=== PATIENT | female | born 1925 | race Caucasian/White ===

== ENCOUNTER 2016-05-02 08:58 | Inpatient (IN) | payer MEDICARE ==
[2016-05-02] MEDS ORDERED: SODIUM CHLORIDE 0.9% 1,000 ML IV STA (09:50)
[2016-05-02] MEDS ORDERED: ACETAMINOPHEN IV (For NPO) 1,000 MG in EMPTY BAG 1 BAG IVPB ONE (09:51)
[2016-05-02] MEDS: SODIUM CHLORIDE 0.9% 500 ML IV STA ×2 (10:11→11:46)
[2016-05-02] MEDS ORDERED: ACETAMINOPHEN IVPB ONE (10:15)
[2016-05-02 10:36] LABS: Amorphous Sediment,Urine Rare /hpf; Appearance,Urine Cloudy (Clear); Bilirubin,Urine Negative (Negative); Glucose,Urine (UA) Negative (Negative); Granular Casts,Urine 1 /lpf (0); Ketones,Urine Negative (Negative); Leukocyte Esterase,Urine Negative (Negative); Mucus,Urine Rare /hpf; Nitrite,Urine Negative (Negative); PH, Urine 5.5 (5.0-8.0); Particle Count 7619; Protein,Urine 1+ (Negative); Specific Gravity,Urine 1.014 (1.001-1.035); UA Billing (MACRO vs. MICRO) MICRO; Urobilinogen,Urine <2.0 mg/dL (<2.0); WBC,Urine 13 /hpf (0-5)
[2016-05-02 10:38] LABS: Basophils % (A) 0 %; CHCM 32.6; Eosinophils # (A) 0.1 k/uL (0-0.7); Eosinophils % (A) 1 %; HCT 39.7 % (34.0-46.0); HDW 2.56; HGB 12.8 gm/dL (11.4-16.0); Luc # (Auto) 0.26; Luc % (Auto) 2; Lymphocytes # (A) 0.2 k/uL (1.0-4.8); Lymphocytes % (A) 2 %; MCH 31.7 pg (25.0-35.0); MCHC 32.1 g/dL (31.0-37.0); MCV 98.6 fL (80.0-100.0); Mean Platelet Volume 7.6; Monocytes # (A) 0.3 k/uL (0-1.0); Monocytes % (A) 3 %; Neutrophils # (A) 11.2 k/uL (1.3-7.7); Neutrophils % (A) 93 %; RBC 4.02 m/uL (3.80-5.40); RDW 12.3 % (11.5-15.5); WBC 12.1 k/uL (3.8-10.6); WBC (Perox) 12.08
[2016-05-02 10:40] LABS: Partial Thromboplastin Time 26.3 sec (22.0-30.0); Prothrombin Time 9.9 sec (9.0-12.0)
--- NOTE | 2016-05-02 10:40 | ED ---
General Adult HPI - General Chief complaint: Fall Stated complaint: Constipation Time Seen by Provider: 05/02/16 09:31 Source: EMS Mode of arrival: EMS Limitations: altered mental status - History of Present Illness Initial comments: This 89-year-old white female presents via EMS with a complaint of some pain to her lower back and pelvis area which seems radiate down her left leg. She apparently has had this for over 2 weeks. She followed up with Dr. [facility]ett [facility] this past week and initially was prescribed some ibuprofen. She apparently did not have any relief from this in a called her in some Ultram. She is tried the Ultram but her close friend relates that this made her very goofy. Her friend stopped this yesterday. She has had difficult time with any ambulation. She apparently was unable to make it to the bathroom and soiled herself. She states that the pain is fairly severe. The friend relates that she has been confused since taking the Ultram. The patient denies any actual fall or injuries. She denies any difficulty in breathing or fevers. She was fairly adamant about not coming to the hospital so the friend called the police to the house as well and she subsequently agreed. Did have some x- rays by her orthopedic physician last week but the results of these x-rays are unknown. She denies any other complaints or modifying factors. 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 - Related Data Home Medications Medication Instructions Recorded Confirmed Alendronate Sodium 70 mg PO WEEKLY 02/04/14 02/04/14 Aspirin 81 mg PO DAILY 02/04/14 02/04/14 Calcium Carbonate/Vitamin D3 1 each PO DAILY 02/04/14 02/04/14 [Calcium 600-Vit D3 400 Tablet] Flunisolide Nasal [place] [Nasalide] 2 spray NASAL BID 02/04/14 02/04/14 Gabapentin 400 mg PO AC-TID 02/04/14 02/04/14 Levothyroxine Sodium [Synthroid] 75 mcg PO DAILY 02/04/14 02/04/14 Menthol [Nice Cough Drops] 1 - 2 each PO Q2HR PRN 02/04/14 02/04/14 Multivitamin/Iron/Folic Acid 1 each PO DAILY 02/04/14 02/04/14 [Centrum Complete Multivit Tab] Neomycin [place]/Bacitrac Zn/Poly 15 gm TP DAILY PRN 02/04/14 02/04/14 [Neosporin Ointment] Quinapril HCl [Accupril] 20 mg PO BID 02/04/14 02/04/14 Alendronate Sodium [Fosamax] 70 mg PO WEEKLY 02/08/14 02/08/14 Previous Rx's Medication Instructions Recorded HYDROcodone/APAP 5-325MG [[place] 1 each PO Q4HR PRN #1 tab 02/07/14 5-325] Warfarin [Coumadin] 2 mg PO DAILY #30 tab 02/07/14 Allergies Allergy/AdvReac Type Severity Reaction Status Date / Time Penicillins Allergy Rash/Hives Verified 02/04/14 08:41 Review of Systems ROS Statement: Those systems with pertinent positive or pertinent negative responses have been documented in the HPI. ROS Other: All systems not noted in ROS Statement are negative. Past Medical History Past Medical History: Hypertension Additional Past Medical History / Comment(s): back problems, neuropathy, arthritis History of Any Multi-Drug Resistant Organisms: None Reported Past Surgical History: Adenoidectomy, Appendectomy, Hysterectomy, Tonsillectomy Past Anesthesia/Blood Transfusion Reactions: No Reported Reaction Past Psychological History: Anxiety Smoking Status: Former smoker Past Alcohol Use History: Daily Past Drug Use History: None Reported General Exam - General Exam Comments Initial Comments: GENERAL: The patient is well nourished and well hydrated. VITAL SIGNS: Heart rate, blood pressure, respiratory rate reviewed as recorded in nurse's notes. EYES: Pupils are round and reactive. Extraocular movements are intact. No conjunctival / lid redness or swelling. ENT: No external evidence of injury, swelling, or ecchymosis. Airway is patent. Throat is clear. Mucous membranes are dry. NECK: Nontender. No swelling or evidence of injury. No subcutaneous emphysema. Trachea is midline. No thyroid mass. HEART: Regular rate and rhythm. Good peripheral pulses. LUNGS/CHEST: Breath sounds clear and equal bilaterally. No rales, rhonchi, or wheezes. No ecchymosis, subcutaneous emphysema, or tenderness. ABDOMEN: Abdomen soft without tenderness. No palpable masses or organomegaly. No peritoneal signs. No abdominal wall swelling or ecchymosis. EXTREMITIES: There is some tenderness into the perilumbar musculature as well as into the left hip region. NEUROLOGIC: Sensation is grossly intact. Cranial nerve exam reveals face is symmetrical, tongue is midline, speech is clear. SKIN: No abrasions or ecchymosis is noted. No induration or masses noted. PSYCHIATRIC: Alert and oriented. Appropriate behavior and judgment. Limitations: altered mental status Course Vital Signs 05/02/16 05/02/16 08:59 10:14 Temperature 97.5 F L Pulse Rate 62 80 Respiratory 16 16 Rate Blood Pressure 126/62 117/59 O2 Sat by Pulse 90 L 97 Oximetry Medical Decision Making - Medical Decision Making The patient was seen and examined. All diagnostics were reviewed. An IV was started and she is hydrated. She received some Ofirmev for her pain. The retail presentation specialist further relates that she found her on the floor yesterday. He scan of the brain therefore is completed is possibility of any trauma is unknown. She is on Coumadin as well. X-rays are obtained of the chest due to her having some hypoxia with pulse ox of 90%. X-rays of her lumbar spine and AP pelvis are also completed. The x-rays of the lumbar spine shows significant degenerative changes. The AP pelvis shows severe degenerative changes of the bilateral hips with the right worse than the left. The chest x-ray shows evidence of a pneumonia in the right lung. The CT of the brain does not show any acute process. Her laboratory shows multiple significant abnormalities. It appears that she is urinary tract infection as well. She is started on Levaquin intravenously. It appears that she has acute kidney injury associated hyperkalemia. She has a significant elevation of her CPK and other cardiac enzymes. Is felt that she may have a degree of rhabdomyolysis likely related to her being on the ground yesterday. It is felt as though she would require admission to the hospital for further treatment. Case is discussed with Dr. Rain and he is agreeable to admission. - Lab Data Result diagrams: 05/02/16 09:20 05/02/16 09:20 Lab Results 05/02/16 05/02/16 05/02/16 Range/Units 09:20 09:20 09:20 WBC 12.1 H (3.8-10.6) k/uL RBC 4.02 (3.80-5.40) m/uL Hgb 12.8 (11.4-16.0) gm/dL Hct 39.7 (34.0-46.0) % MCV 98.6 (80.0-100.0) fL MCH 31.7 (25.0-35.0) pg MCHC 32.1 (31.0-37.0) g/dL RDW 12.3 (11.5-15.5) % Plt Count 385 (150-450) k/uL Neutrophils % 93 % Lymphocytes % 2 % Monocytes % 3 % Eosinophils % 1 % Basophils % 0 % Neutrophils # 11.2 H (1.3-7.7) k/uL Lymphocytes # 0.2 L (1.0-4.8) k/uL Monocytes # 0.3 (0-1.0) k/uL Eosinophils # 0.1 (0-0.7) k/uL Basophils # 0.0 (0-0.2) k/uL PT (9.0-12.0) sec INR (<1.1) APTT (22.0-30.0) sec Sodium 133 L (137-145) mmol/L Potassium 5.5 H (3.5-5.1) mmol/L Chloride 95 L (98-107) mmol/L Carbon Dioxide 25 (22-30) mmol/L Anion Gap 13 mmol/L BUN 68 H (7-17) mg/dL Creatinine 1.81 H (0.52-1.04) mg/dL Est GFR (MDRD) Af Amer 32 (>60 ml/min/1.73 sqM) Est GFR (MDRD) Non-Af 26 (>60 ml/min/1.73 sqM) Glucose 93 (74-99) mg/dL Calcium 10.0 (8.4-10.2) mg/dL Phosphorus 4.5 (2.5-4.5) mg/dL Magnesium 3.1 H (1.6-2.3) mg/dL Total Bilirubin 0.4 (0.2-1.3) mg/dL AST 113 H (14-36) U/L ALT 53 H (9-52) U/L Alkaline Phosphatase 184 H (38-126) U/L Total Creatine Kinase 2788 H (30-135) U/L CK-MB (CK-2) 24.8 H* (0.0-2.4) ng/mL CK-MB (CK-2) Rel Index Troponin I 0.062 H* (0.000-0.034) ng/mL NT-Pro-B Natriuret Pep pg/mL Total Protein 7.1 (6.3-8.2) g/dL Albumin 3.2 L (3.5-5.0) g/dL Urine Color Urine Appearance (Clear) Urine pH (5.0-8.0) Ur Specific [place] (1.001-1.035) Urine Protein (Negative) Urine Glucose (UA) (Negative) Urine Ketones (Negative) Urine Blood (Negative) Urine Nitrite (Negative) Urine Bilirubin (Negative) Urine Urobilinogen (<2.0) mg/dL Ur Leukocyte Esterase (Negative) Urine WBC (0-5) /hpf Urine WBC Clumps (None) /hpf Amorphous Sediment (None) /hpf Granular Casts (0) /lpf Urine Mucus (None) /hpf 05/02/16 05/02/16 05/02/16 Range/Units 09:20 09:20 09:20 WBC (3.8-10.6) k/uL RBC (3.80-5.40) m/uL Hgb (11.4-16.0) gm/dL Hct (34.0-46.0) % MCV (80.0-100.0) fL MCH (25.0-35.0) pg MCHC (31.0-37.0) g/dL RDW (11.5-15.5) % Plt Count (150-450) k/uL Neutrophils % % Lymphocytes % % Monocytes % % Eosinophils % % Basophils % % Neutrophils # (1.3-7.7) k/uL Lymphocytes # (1.0-4.8) k/uL Monocytes # (0-1.0) k/uL Eosinophils # (0-0.7) k/uL Basophils # (0-0.2) k/uL PT 9.9 (9.0-12.0) sec INR 1.0 (<1.1) APTT 26.3 (22.0-30.0) sec Sodium (137-145) mmol/L Potassium (3.5-5.1) mmol/L Chloride (98-107) mmol/L Carbon Dioxide (22-30) mmol/L Anion Gap mmol/L BUN (7-17) mg/dL Creatinine (0.52-1.04) mg/dL Est GFR (MDRD) Af Amer (>60 ml/min/1.73 sqM) Est GFR (MDRD) Non-Af (>60 ml/min/1.73 sqM) Glucose (74-99) mg/dL Calcium (8.4-10.2) mg/dL Phosphorus (2.5-4.5) mg/dL Magnesium (1.6-2.3) mg/dL Total Bilirubin (0.2-1.3) mg/dL AST (14-36) U/L ALT (9-52) U/L Alkaline Phosphatase (38-126) U/L Total Creatine Kinase (30-135) U/L CK-MB (CK-2) (0.0-2.4) ng/mL CK-MB (CK-2) Rel Index Troponin I (0.000-0.034) ng/mL NT-Pro-B Natriuret Pep 6130 pg/mL Total Protein (6.3-8.2) g/dL Albumin (3.5-5.0) g/dL Urine Color Yellow Urine Appearance Cloudy H (Clear) Urine pH 5.5 (5.0-8.0) Ur Specific [place] 1.014 (1.001-1.035) Urine Protein 1+ H (Negative) Urine Glucose (UA) Negative (Negative) Urine Ketones Negative (Negative) Urine Blood Moderate H (Negative) Urine Nitrite Negative (Negative) Urine Bilirubin Negative (Negative) Urine Urobilinogen <2.0 (<2.0) mg/dL Ur Leukocyte Esterase Negative (Negative) Urine WBC 13 H (0-5) /hpf Urine WBC Clumps Few H (None) /hpf Amorphous Sediment Rare H (None) /hpf Granular Casts 1 (0) /lpf Urine Mucus Rare H (None) /hpf Disposition Clinical Impression: Mental status change, Pneumonia, Acute kidney injury, Hyperkalemia, Transaminitis, Rhabdomyolysis, Elevated troponin, Dehydration, Lumbar and sacral arthritis, Hip arthritis, Urinary tract infection, Back pain Disposition: ADMITTED IP TO THIS [facility] Condition: Fair Time of Disposition: 11:45 Decision Date: 05/02/16 Decision Time: 11:45
[2016-05-02 10:48] LABS: Magnesium 3.1 mg/dL (1.6-2.3); Phosphorous 4.5 mg/dL (2.5-4.5); Potassium 5.5 mmol/L (3.5-5.1); Total Bilirubin 0.4 mg/dL (0.2-1.3); Total Protein 7.1 g/dL (6.3-8.2)
--- NOTE | 2016-05-02 11:02 | CT ---
EXAMINATION TYPE: CT brain wo con DATE OF EXAM: 05/02/2016 10:45 AM COMPARISON: NONE HISTORY: Weakness CT DLP: 1180.6 mGycm Automated exposure control for dose reduction was used. FINDINGS: There are generalized changes of sulcal prominence and ventriculomegaly, compatible with atrophic margie nge. There is diffuse periventricular white matter lucency, compatible with chronic white matter isch emic change. There is no acute focal lesion, mass effect or midline shift identified. I do not see ev idence of intracranial blood. Visualized portions of the paranasal sinuses and mastoids are clear. IMPRESSION: 1. NO ACUTE INTRACRANIAL ABNORMALITY. 2. ATROPHIC CHANGE. 3. CHRONIC WHITE MATTER ISCHEMIC CHANGE.
[2016-05-02 11:12] LABS: Creatine Kinase MB 24.8 ng/mL (0.0-2.4); Troponin I 0.062 ng/mL (0.000-0.034)
--- NOTE | 2016-05-02 11:21 | XR ---
EXAMINATION TYPE: XR chest 2V DATE OF EXAM: 05/02/2016 11:07 AM HISTORY: Weakness. REFERENCE: EXAMINATION TYPE: XR chest 2V DATE OF EXAM: 05/02/2016 11:07 AM HISTORY: Weakness. REFERENCE: NONE. FINDINGS: The lungs are overinflated. The heart is enlarged. There is an infiltrate in the right midl ankita. Pleural spaces are clear. IMPRESSION: 1. COPD. 2. CARDIOMEGALY. 3. RIGHT-SIDED INFILTRATE. . FINDINGS: IMPRESSION:
[2016-05-02] MEDS ORDERED: LEVOFLOXACIN 500MG-D5W PMX 500 MG in DEXTROSE/WATER 1 100ML.BAG IVPB STA (11:25)
--- NOTE | 2016-05-02 11:27 | XR ---
EXAMINATION TYPE: XR pelvis AP view DATE OF EXAM ORDERED: 05/02/2016 11:07 AM HISTORY: Pain. COMPARISON: None. FINDINGS: There is severe osteoarthritis involving both hips, greater on the right than the left. Th ere is subchondral sclerosis on the right. There are degenerative changes within the lower lumbar spi ne. No acute osseous lesion is seen. IMPRESSION: 1. NO ACUTE OSSEOUS LESION. 2. DEGENERATIVE CHANGES IN THE LOWER LUMBAR SPINE. 3. OSTEOARTHRITIS, GREATER ON THE RIGHT THAN LEFT.
--- NOTE | 2016-05-02 11:28 | XR ---
EXAMINATION TYPE: XR lumbar spine 2 or 3V DATE OF EXAM ORDERED: 05/02/2016 11:07 AM HISTORY: Pain. COMPARISON: None. FINDINGS: There is a mild dextroscoliosis. Vertebral body height and alignment are maintained. There is no spondylolysis or spondylolisthesis. T here is disc space loss at L5-S1 and to a lesser extent L4-5. There is mild, diffuse hypertrophic spo ndylosis. There is some mild spondylosis deformans at L1-2 and L2-3. There is facet arthropathy at L4 -5 and L5-S1. The pedicles are not well demonstrated below the level of L1. IMPRESSION: 1. NO ACUTE OSSEOUS LESION. 2. MODERATE DEGENERATIVE CHANGE.
[2016-05-02] MEDS ORDERED: SODIUM CHLORIDE 0.9% 500 ML IV STA (11:38)
[2016-05-02] MEDS ORDERED: ONDANSETRON 4 MG/2 ML VIAL IVP PRN (11:45)
[2016-05-02] MEDS ORDERED: MORPHINE SULFATE 4 MG/ML SYRINGE IV PRN (11:45)
[2016-05-02] MEDS ORDERED: NALOXONE 0.4 MG/ML 1 ML VIAL IV PRN (11:45)
[2016-05-02] MEDS ORDERED: ACETAMINOPHEN TAB 325 MG TAB PO PRN (11:45)
[2016-05-02] MEDS ORDERED: SODIUM POLYSTYRENE SULFONATE 15 GM/60 ML BOTTLE PO STA (11:51)
--- NOTE | 2016-05-02 12:26 | P.HPIM ---
History of Present Illness H&P Date: 05/02/16 Chief Complaint: Acute mental status changes This is an 89-year-old thin frail slightly cachectic in appearance female who presented to the emergency room via the EMS system which was activated by a friend who apparently stopped by on the noted that the patient was confused incontinent of urine and stool apparently had fallen was not able to get up.. The friend is at the bedside who provided most of the health history. According to the friend over the last several weeks patient has been experiencing lower back pain and pain in the left leg. Apparently the patient did see Dr. burnett [facility] this week and patient was given a prescription for ibuprofen. According to the friend this did not offer any relief of the lower back pain. Apparently the patient call Dr. Burnett who called in a prescription for Ultram according to the friend patient did take Ultram friend noted the patient behaving very goofy inappropriate behavior which is different from the baseline after taking Ultram. According to the friend the patient has not been eating poor oral intake this been ongoing for the past several weeks. Patient is a retired schoolteacher and according to the friend has been independent up until the current event patient additionally reportedly has a history of chronic neuropathy involving the lower extremities. The friend indicated that the x-rays at [facility] that were done last week is not certain of the results currently the patient is resting in bed is pleasant and oriented to self and place did note the patient is incontinent a urine Review of Systems Difficult to obtain patient doesn't have any adequate recall Past Medical History Past Medical History: Hypertension Additional Past Medical History / Comment(s): back problems, neuropathy, arthritis History of Any Multi-Drug Resistant Organisms: None Reported Past Surgical History: Adenoidectomy, Appendectomy, Hysterectomy, Tonsillectomy Past Anesthesia/Blood Transfusion Reactions: No Reported Reaction Past Psychological History: Anxiety Smoking Status: Former smoker Past Alcohol Use History: Daily Past Drug Use History: None Reported Medications and Allergies Home Medications Medication Instructions Recorded Confirmed Type Alendronate Sodium 70 mg PO WEEKLY 02/04/14 02/04/14 History Aspirin 81 mg PO DAILY 02/04/14 02/04/14 History Calcium Carbonate/Vitamin D3 1 each PO DAILY 02/04/14 02/04/14 History [Calcium 600-Vit D3 400 Tablet] Flunisolide Nasal [place] [Nasalide] 2 spray NASAL BID 02/04/14 02/04/14 History Gabapentin 400 mg PO AC-TID 02/04/14 02/04/14 History Levothyroxine Sodium [Synthroid] 75 mcg PO DAILY 02/04/14 02/04/14 History Menthol [Nice Cough Drops] 1 - 2 each PO Q2HR PRN 02/04/14 02/04/14 History Multivitamin/Iron/Folic Acid 1 each PO DAILY 02/04/14 02/04/14 History [Centrum Complete Multivit Tab] Neomycin [place]/Bacitrac Zn/Poly 15 gm TP DAILY PRN 02/04/14 02/04/14 History [Neosporin Ointment] Quinapril HCl [Accupril] 20 mg PO BID 02/04/14 02/04/14 History Alendronate Sodium [Fosamax] 70 mg PO WEEKLY 02/08/14 02/08/14 History Allergies Allergy/AdvReac Type Severity Reaction Status Date / Time Penicillins Allergy Rash/Hives Verified 02/04/14 08:41 Physical Exam Vitals: Vital Signs Temp Pulse Resp BP Pulse Ox 05/02/16 11:47 97.9 F 77 16 101/55 96 GENERAL APPEARANCE: 89-year-old female thin cachectic patient is alert, oriented to self and place, in no acute distress. VITAL SIGNS: Reviewed HEENT: Head is normocephalic and atraumatic. Pupils are equal and reactive. The nares are patent. Oropharynx is clear without lesions. NECK: Supple without lymphadenopathy. Traches midline. HEART: S1, S2. Regular rate and rhythm. No murmur noted currently denying chest pain LUNGS: No crackles or wheezes are heard. Diminished posteriorly at the bases nasal cannula on 2 L 96% on room air 90% 88% ABDOMEN: Soft, nontender, slightly distended with good bowel sounds. No peritoneal signs. No palpable organomegaly or masses. Incontinent of urine EXTREMITIES: Normal skin color and turgor. No cyanosis, rash, ulceration, clubbing or edema. Radial pedal pulses are 2/4 bilaterally. The right wrist has multiple bracelets and place patient states she never removes them. Skin tear noted to the right shoulder. No edema noted to the lower extremities NEUROLOGICAL: No focal deficits. Strength and sensation are grossly intact. Results CBC & Chem 7: 05/02/16 09:20 05/02/16 09:20 Assessment and Plan Plan: Impression Acute encephalopathy likely metabolic due to UTI Present on admission acute hypoxic respiratory failure pulse ox sat 88-90% suspect due to pneumonia right lung Present on admission Elevated CPK rhabdomyolysis likely due to prolonged time on the ground after a fall from a sitting position Present on admission Acute kidney injury suspect due to hypovolemic clinical dehydration poor oral intake Chronic lower back pain with left hip pain X-ray shows degenerative changes bilateral hips right greater than the left History of a fall from a sitting position with a computed tomography scan of the brain showing no acute process History of chronic constipation Elevated TSH and a low free T4 in a patient with hypothyroid Present on admission hypotensive needing to be resuscitated with a liter of fluid suspect due to dehydration Present on admission a UTI Present on admission mildly elevated troponin Plan Consult cardiology for the mildly elevated troponin Consult [facility] for the chronic lower back pain left hip pain IV fluid for rehydration Repeat labs in the morning Hold all nephrotoxin meds Titrate the O2 keep sats can a 99% IV antibiotics Levaquin as ordered DVT and GI prophylaxis Further recommendations pending Resume home meds as appropriate The above dictated assessment and findings were discussed with dr berrios . Impression and the plan of care have been dictated as directed. Samia Elizalde nurse practitioner acting as a scribe for dr berrios.
[2016-05-02] MEDS: PANTOPRAZOLE 40 MG/10 ML VIAL IV SCH (13:09)
[2016-05-02] MEDS: HYDROcodone/APAP 5-325MG 1 EACH TAB PO PRN (13:09)
[2016-05-02] MEDS: ENOXAPARIN 40 MG/0.4 ML SYRINGE SQ SCH (13:09)
[2016-05-02] MEDS: MORPHINE SULFATE 4 MG/ML SYRINGE IV PRN ×2 (16:10→23:23)
[2016-05-02 16:20] LABS: Creatine Kinase MB 15.1 ng/mL (0.0-2.4); Troponin I 0.046 ng/mL (0.000-0.034)
[2016-05-02] MEDS ORDERED: LACTULOSE 20 GM/30 ML CUP PO ONE (17:24)
[2016-05-02] MEDS: GABAPENTIN 400 MG CAP PO SCH (17:55)
[2016-05-02] MEDS ORDERED: SODIUM CHLORIDE 0.9% 500 ML IV ONE (20:45)
[2016-05-02] MEDS: DOCUSATE 100 MG CAP PO SCH (20:50)
[2016-05-02 22:57] LABS: Creatine Kinase MB 9.3 ng/mL (0.0-2.4); Troponin I 0.042 ng/mL (0.000-0.034)
[2016-05-03] MEDS: HYDROcodone/APAP 5-325MG 1 EACH TAB PO PRN ×3 (01:33→18:26)
[2016-05-03] MEDS: GABAPENTIN 400 MG CAP PO SCH ×3 (06:31→18:14)
[2016-05-03] MEDS: LEVOTHYROXINE 25 MCG TAB PO SCH (06:31)
[2016-05-03] MEDS: MORPHINE SULFATE 4 MG/ML SYRINGE IV PRN ×3 (06:31→19:38)
[2016-05-03 07:03] LABS: Basophils % (A) 0 %; CH 31.4; CHCM 31.8; Eosinophils # (A) 0.1 k/uL (0-0.7); Eosinophils % (A) 1 %; HCT 31.9 % (34.0-46.0); HDW 2.53; HGB 10.3 gm/dL (11.4-16.0); Hypochromasia Slight; Luc # (Auto) 0.25; Luc % (Auto) 3; Lymphocytes # (A) 0.2 k/uL (1.0-4.8); Lymphocytes % (A) 2 %; MCH 32.1 pg (25.0-35.0); MCHC 32.4 g/dL (31.0-37.0); MCV 99.2 fL (80.0-100.0); Mean Platelet Volume 7.6; Monocytes # (A) 0.3 k/uL (0-1.0); Monocytes % (A) 3 %; Neutrophils % (A) 91 %; RBC 3.21 m/uL (3.80-5.40); RDW 12.4 % (11.5-15.5); WBC 9.8 k/uL (3.8-10.6); WBC (Perox) 10.57
[2016-05-03 07:05] LABS: INR 1.1 (<1.1); Prothrombin Time 10.6 sec (9.0-12.0)
[2016-05-03 07:32] LABS: Anion Gap 11 mmol/L; Blood Urea Nitrogen 54 mg/dL (7-17); Calcium 7.9 mg/dL (8.4-10.2); Carbon Dioxide 19 mmol/L (22-30); Chloride 106 mmol/L (98-107); Glucose 83 mg/dL (74-99); Non-African American GFR(MDRD) 52 (>60 ml/min/1.73 sqM); Potassium 4.1 mmol/L (3.5-5.1); Sodium 136 mmol/L (137-145)
[2016-05-03] MEDS: FLUTICASONE 50MCG/SPRAY NASAL 16GM EA NOSTRIL SCH (08:31)
[2016-05-03] MEDS: LEVOFLOXACIN 500MG-D5W PMX 500 MG in DEXTROSE/WATER 1 100ML.BAG IVPB SCH (08:31)
[2016-05-03] MEDS: ENOXAPARIN 40 MG/0.4 ML SYRINGE SQ SCH (08:31)
[2016-05-03] MEDS: PANTOPRAZOLE 40 MG/10 ML VIAL IV SCH (08:32)
[2016-05-03] MEDS: DOCUSATE 100 MG CAP PO SCH ×2 (08:32→19:39)
[2016-05-03] MEDS: ASPIRIN 81 MG CHEW PO SCH (08:32)
--- NOTE | 2016-05-03 09:50 | P.PN ---
Subjective Principal diagnosis: Pneumonia Patient is an 89-year-old female who presented to [facility] with multiple medical problems including pneumonia, urinary tract infection, intractable back pain, she was admitted to telemetry floor she was started on IV antibiotic, patient had some minimal improvement since yesterday. Objective - Vital Signs Vital signs: Vital Signs Temp 97 F L 05/03/16 03:54 Pulse 90 05/03/16 06:30 Resp 18 05/03/16 03:54 BP 105/53 05/03/16 06:30 Pulse Ox 93 L 05/03/16 03:54 Intake & Output 05/02/16 05/03/16 05/03/16 18:59 06:59 18:59 Intake Total 1800 120 Balance 1800 120 Weight 49 kg 46.5 kg Intake: Intake, IV Titration 1800 Amount Levofloxacin 500Mg-D5w 100 Pmx 500 mg In Dextrose/ Water 1 100ml.bag @ 100 mls/hr IVPB DAILY CRISTOBAL Rx# :[id number] Sodium Chloride 0.9% 1, 1200 000 ml @ 100 mls/hr IV . Q10H STA Rx#:[id number] Sodium Chloride 0.9% 500 500 ml @ 999 mls/hr IV .Q31M ONE Rx#:[id number] Oral 120 Other: Voiding Method Diaper # Voids 1 - Exam In general patient is alert and oriented 3 in no apparent distress HEENT head normocephalic and atraumatic Neck is supple no JVD no goiter no lymphadenopathy Chest exam reveals coarse crackles in both lung vuong no wheezing Cardiac exam reveals regular heart sounds no gallops no murmurs Abdomen is soft nontender no organomegaly Extremity exam reveals no edema no cyanosis or clubbing - Labs CBC & Chem 7: 05/03/16 05:51 05/03/16 05:51 Labs: Abnormal Lab Results - Last 24 Hours (Table) 05/02/16 05/02/16 05/03/16 Range/Units 15:24 21:57 05:51 RBC (3.80-5.40) m/uL Hgb (11.4-16.0) gm/dL Hct (34.0-46.0) % Neutrophils # (1.3-7.7) k/uL Lymphocytes # (1.0-4.8) k/uL Sodium 136 L (137-145) mmol/L Carbon Dioxide 19 L (22-30) mmol/L BUN 54 H (7-17) mg/dL Calcium 7.9 L (8.4-10.2) mg/dL Total Creatine Kinase 2180 H 1437 H (30-135) U/L CK-MB (CK-2) 15.1 H* 9.3 H* (0.0-2.4) ng/mL Troponin I 0.046 H* 0.042 H* (0.000-0.034) ng/mL 05/03/16 Range/Units 05:51 RBC 3.21 L (3.80-5.40) m/uL Hgb 10.3 L (11.4-16.0) gm/dL Hct 31.9 L (34.0-46.0) % Neutrophils # 9.0 H (1.3-7.7) k/uL Lymphocytes # 0.2 L (1.0-4.8) k/uL Sodium (137-145) mmol/L Carbon Dioxide (22-30) mmol/L BUN (7-17) mg/dL Calcium (8.4-10.2) mg/dL Total Creatine Kinase (30-135) U/L CK-MB (CK-2) (0.0-2.4) ng/mL Troponin I (0.000-0.034) ng/mL Assessment and Plan Plan: #1 right lung infiltrate suggestive of pneumonia #2 urinary tract infection #3 acute hypoxic respiratory failure #4 acute rhabdomyolysis #5 acute kidney injury, improving #6 slightly elevated troponin level on presentation, without any chest pain or any suggestion of acute coronary syndrome #7 acute intractable back pain with physical debility with inability to sit or stand At this time continue was current medications sputum sample for culture and Gram stain Recheck chest x-ray tomorrow recheck labs Consult physical therapy and occupational therapy
--- NOTE | 2016-05-03 12:04 | P.CNOR ---
History of Present Illness - [facility] Consult date: 05/03/16 Requesting physician: Samia Elizalde Consult reason: low back pain, other (Left lower extremity radiculopathy) History of present illness: Patient is a pleasant 89-year-old female who is seen and examined at bedside for further evaluation after we are consulted in regards to significant low back pain and left lower extremity radiculopathy. Patient's symptoms have been ongoing over the past couple weeks. She was seen and examined at [facility] by Dr. Burnett and was prescribed ibuprofen. She was later prescribed Ultram after she was not having relief of her symptoms with the ibuprofen. The Ultram, however, altered her mental status. After her symptoms were not improving, she presented to the emergency department for further evaluation and treatment. She has since been admitted. Patient states she has significant pain from the lumbar spine radiating down the middle of her left leg to the ankle. She states her pain is severe and debilitating. She denies any specific injury. She moves significantly slowly in the bed and has significant pain with increased range of motion of the bilateral lower extremities and the lumbar spine. Patient states at this time she does not wish to discuss the possibility of invasive treatment for her lumbar spine but she would be willing to undergo further imaging and consultation with pain management. Patient is being seen in exam by Dr. Rain in medicine and is currently being treated for pneumonia and a urinary tract infection. Past Medical History Past Medical History: Hypertension Additional Past Medical History / Comment(s): back problems, neuropathy, arthritis History of Any Multi-Drug Resistant Organisms: None Reported Past Surgical History: Adenoidectomy, Appendectomy, Hysterectomy, Tonsillectomy Past Anesthesia/Blood Transfusion Reactions: No Reported Reaction Past Psychological History: Anxiety Smoking Status: Former smoker Past Alcohol Use History: Daily Past Drug Use History: None Reported - Past Family History Mother History Unknown: Yes Medications and Allergies Home Medications Medication Instructions Recorded Confirmed Type Aspirin 81 mg PO DAILY 02/04/14 05/02/16 History Gabapentin 400 mg PO AC-TID 02/04/14 05/02/16 History Multivitamin/Iron/Folic Acid 1 tab PO DAILY 02/04/14 05/02/16 History [Centrum Complete Multivit Tab] Quinapril HCl [Accupril] 20 mg PO BID 02/04/14 05/02/16 History Alendronate Sodium [Fosamax] 70 mg PO WEEKLY 02/08/14 05/02/16 History Fluticasone Nasal [place] [Flonase 1 spray EA NOSTRIL DAILY 05/02/16 05/02/16 History Nasal [place]] Ibuprofen [Motrin] 800 mg PO BID PRN 05/02/16 05/02/16 History Levothyroxine Sodium [Synthroid] 25 mcg PO DAILY 05/02/16 05/02/16 History Magnesium Hydroxide [Milk of 400 mg PO DAILY PRN 05/02/16 05/02/16 History Magnesia] amLODIPine [Norvasc] 10 mg PO DAILY 05/02/16 05/02/16 History traMADol HCL [Ultram] 50 mg PO Q6H PRN 05/02/16 05/02/16 History Allergies Allergy/AdvReac Type Severity Reaction Status Date / Time Penicillins Allergy Rash/Hives Verified 05/02/16 12:11 Physical Examination Physical exam: Patient is awake, alert, and oriented 3 Vital signs stable Good chest excursion with deep inspiration and expiration; patient currently on O2 nasal cannula Abdomen soft nontender Examination of lumbar spine reveals skin is intact with no abrasions, lacerations or bruises; no erythema, purulence or signs of infection No obvious step off deformities with palpation Pain with palpation along the midline of the lower lumbar spine Dorsiflexion, plantarflexion, and extensor hallucis longus positive sustained bilaterally but movements are slow Trophic skin changes of the bilateral lower extremities below the knee Lower extremity strength diminished bilaterally; patient has significant difficulty with lifting legs off the bed independently and performing knee flexion laterally No lower extremity hyperreflexia bilaterally Increased low back pain when moving lower extremities through passive range of motion No signs or symptoms of DVT; no calf pain No significant pain with internal and external rotation of the hips bilaterally Neurovascularly intact Results Pertinent studies: X-ray lumbar spine: L4-5 degenerative disc disease and facet arthropathy; L5-S1 degenerative disc disease and facet arthropathy; mild diffuse hypertrophic spondylosis; mild spondylosis deformans at L1-2 and L2-3; no acute osseous lesion; overall alignment appears to be adequately maintained; no evidence of spondylolysis or listhesis X-ray the pelvis: Severe osteoarthritis of the hips bilaterally greater on the right than the left with subchondral sclerosis on the right; no acute osseous lesion seen; no evidence of fracture or dislocation - Labs Labs: Abnormal Lab Results - Last 24 Hours (Table) 05/02/16 05/02/16 05/03/16 Range/Units 15:24 21:57 05:51 RBC (3.80-5.40) m/uL Hgb (11.4-16.0) gm/dL Hct (34.0-46.0) % Neutrophils # (1.3-7.7) k/uL Lymphocytes # (1.0-4.8) k/uL Sodium 136 L (137-145) mmol/L Carbon Dioxide 19 L (22-30) mmol/L BUN 54 H (7-17) mg/dL Calcium 7.9 L (8.4-10.2) mg/dL Total Creatine Kinase 2180 H 1437 H (30-135) U/L CK-MB (CK-2) 15.1 H* 9.3 H* (0.0-2.4) ng/mL Troponin I 0.046 H* 0.042 H* (0.000-0.034) ng/mL 05/03/16 Range/Units 05:51 RBC 3.21 L (3.80-5.40) m/uL Hgb 10.3 L (11.4-16.0) gm/dL Hct 31.9 L (34.0-46.0) % Neutrophils # 9.0 H (1.3-7.7) k/uL Lymphocytes # 0.2 L (1.0-4.8) k/uL Sodium (137-145) mmol/L Carbon Dioxide (22-30) mmol/L BUN (7-17) mg/dL Calcium (8.4-10.2) mg/dL Total Creatine Kinase (30-135) U/L CK-MB (CK-2) (0.0-2.4) ng/mL Troponin I (0.000-0.034) ng/mL H & H 05/03/16 Range/Units 05:51 Hgb 10.3 L (11.4-16.0) gm/dL Hct 31.9 L (34.0-46.0) % Coagulation 05/03/16 Range/Units 05:51 INR 1.1 (<1.1) Result Diagrams: 05/03/16 05:51 05/03/16 05:51 Assessment and Plan (1) Low back pain Status: Acute (2) Lumbar back pain with radiculopathy affecting left lower extremity Status: Acute (3) Lower extremity weakness Status: Acute (4) Lumbar degenerative disc disease Status: Acute (5) Lumbar facet arthropathy Status: Acute (6) Osteoarthritis of hips, bilateral Status: Acute (7) Pneumonia Status: Acute (8) Urinary tract infection Status: Acute Plan: Assessment: Low back pain Left lower extremity radiculopathy Weakness bilaterally lower extremities Lumbar degenerative disc disease Lumbar facet arthropathy Severe osteoarthritis of bilateral hips Urinary tract infection Pneumonia Plan: 1. After reviewing the patient's x-rays, further discussion with Dr. Rodolfo White , physical examination the patient, and discussion with the patient, we are not currently planning any surgical intervention in regards to the patient's lumbar spine. She does have degenerative changes at the lumbar spine has been having significant left lower extremity radiculopathy and low back pain. At this time she may benefit from a Medrol Dosepak and I will prescribe this for her. We also discussed consulting with pain management to discuss the possibility of epidural injections or other treatment modalities. The patient agrees to be a good plan of care. We'll plan to obtain a CT of the lumbar spine for further evaluation prior to her consultation with pain management. At this time, we're not currently planning for other invasive treatment from an orthopedic spine surgical standpoint and the patient will be cleared for discharge when she is medically stable for discharge. 2. Dr. Rain in medicine to continue treating the patient for her other medical diagnoses including pneumonia and urinary tract infection 3. Consultation for Dr. Reyes in pain management has been ordered to further evaluate the patient and to discuss the possibility of epidural injections or other treatment modalities 4. CT lumbar spine has been ordered 5. Following discharge, patient a follow-up with Mychal White PA-C or Dr. Rodolfo White at [facility] on as-needed basis 6. I have discussed this patient in detail with Dr. Rodolfo White and he agrees with this plan Time with Patient: Greater than 30
[2016-05-03] MEDS: MULTIVITAMINS, THERA 1 EACH TAB PO SCH (12:13)
--- NOTE | 2016-05-03 13:13 | CT ---
EXAMINATION TYPE: CT lumbar spine wo con DATE OF EXAM: 05/03/2016 12:53 PM COMPARISON: NONE HISTORY: Pain CT DLP: 348.8 mGycm Automated exposure control for dose reduction was used. Unenhanced CT of the lumbar spine was performed. Bone and soft tissue window settings are submitted as well as coronal and sagittal reconstructions. The lumbar vertebra have normal alignment. There is extensive sclerosis and spur formation on both si rodrigo of the L5-S1 disc. There is narrowing of L5-S1 disc space. There is mild narrowing of the other d isc spaces. Abdominal aorta is atheromatous. There is multilevel hypertrophic facet arthropathy throu ghout the lumbar spine. Sacroiliac joints appear intact. There is facet arthropathy and severe bony s jesu stenosis at L3-4 L4-5. There is less severe spinal stenosis at L5-S1. There is no lumbar parasp inal mass. There is 15% depression of the superior endplate of L2 vertebra.. IMPRESSION: There is old mild L2 compression fracture without change compared to 05/08/2009. There is very severe spinal stenosis at L3-4 L4-5. The spinal stenosis appears worse than old CT scan . There are changes at L5-S1 consistent with old chronic discitis.
--- NOTE | 2016-05-03 13:23 | P.CRDCN ---
History of Present Illness Consult date: 05/03/16 Requesting physician: Mario Rain Reason for Consult (text): Abnormal troponins Chief complaint: Left lower back and leg pain History of present illness: Is an 89-year-old female who recently had an injury with her garage door, which she's been experiencing left lower back pain and left leg pain. She did go to [facility], she was initially treated with ibuprofen and recently started on Ultram. 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 The pain in her left hip and left leg was quite severe on arrival here. Patient denies any difficulty in breathing at home she does admit that she's had a cough, nonproductive. She denies any fever or chills, denies any chest discomfort. Patient does have prior history of hypertension, and prior history of smoking. EKG on arrival shows normal sinus rhythm with nonspecific ST-T wave changes in the lateral leads. Chest x-ray on arrival showed COPD, car to megaly, and right-sided infiltrate. At scan of the brain was performed which did not reveal any acute abnormality. Lumbar spine x-ray revealed moderate degenerative change. Blood pressure on arrival 126/60 with a heart rate in the 60s. 90% on 2 L of oxygen. Blood cell count on arrival 12.1, 9.8 this morning. Hemoglobin this morning 10.3. Sodium 136, potassium 4.1, BUN of 54 creatinine 1.0. BUN 68 on admission creatinine 1.8, and potassium was 5.5. AST on admission 113, ALT 53, alk phos 184. Magnesium level III.1. Troponins 0.06, 0.04, 0.04. Elevated CK and MB. BNP level 6130. At the time of my examination this morning, sitting up in the bed, her only complaint is that of left-sided back and leg pain. Breathing stable. No chest pain. Past Medical History Past Medical History: Hypertension Additional Past Medical History / Comment(s): back problems, neuropathy, arthritis History of Any Multi-Drug Resistant Organisms: None Reported Past Surgical History: Adenoidectomy, Appendectomy, Hysterectomy, Tonsillectomy Past Anesthesia/Blood Transfusion Reactions: No Reported Reaction Past Psychological History: Anxiety Smoking Status: Former smoker Past Alcohol Use History: Daily Past Drug Use History: None Reported - Past Family History Mother History Unknown: Yes Medications and Allergies Home Medications Medication Instructions Recorded Confirmed Type Aspirin 81 mg PO DAILY 02/04/14 05/02/16 History Gabapentin 400 mg PO AC-TID 02/04/14 05/02/16 History Multivitamin/Iron/Folic Acid 1 tab PO DAILY 02/04/14 05/02/16 History [Centrum Complete Multivit Tab] Quinapril HCl [Accupril] 20 mg PO BID 02/04/14 05/02/16 History Alendronate Sodium [Fosamax] 70 mg PO WEEKLY 02/08/14 05/02/16 History Fluticasone Nasal [place] [Flonase 1 spray EA NOSTRIL DAILY 05/02/16 05/02/16 History Nasal [place]] Ibuprofen [Motrin] 800 mg PO BID PRN 05/02/16 05/02/16 History Levothyroxine Sodium [Synthroid] 25 mcg PO DAILY 05/02/16 05/02/16 History Magnesium Hydroxide [Milk of 400 mg PO DAILY PRN 05/02/16 05/02/16 History Magnesia] amLODIPine [Norvasc] 10 mg PO DAILY 05/02/16 05/02/16 History traMADol HCL [Ultram] 50 mg PO Q6H PRN 05/02/16 05/02/16 History Allergies Allergy/AdvReac Type Severity Reaction Status Date / Time Penicillins Allergy Rash/Hives Verified 05/02/16 12:11 Physical Exam Vitals: Vital Signs Temp Pulse Pulse Resp BP Pulse Ox 05/03/16 08:00 98.3 F 80 80 20 104/58 94 L 05/03/16 06:30 90 105/53 05/03/16 03:54 97 F L 90 18 101/56 93 L 05/03/16 01:30 97.5 F L 87 18 101/54 92 L 05/03/16 00:00 18 05/02/16 23:20 83 18 98/62 93 L 05/02/16 20:00 98.3 F 85 18 86/53 94 L Intake and Output 05/02/16 05/03/16 05/03/16 22:59 06:59 14:59 Intake Total 1800 120 Balance 1800 120 Intake: Intake, IV Titration 1800 Amount Levofloxacin 500Mg-D5w 100 Pmx 500 mg In Dextrose/ Water 1 100ml.bag @ 100 mls/hr IVPB DAILY [facility] Rx# :[id number] Sodium Chloride 0.9% 1, 1200 000 ml @ 100 mls/hr IV . Q10H STA Rx#:[id number] Sodium Chloride 0.9% 500 500 ml @ 999 mls/hr IV .Q31M ONE Rx#:[id number] Oral 120 Other: Voiding Method Diaper Diaper # Voids 0 1 Weight 46.5 kg PHYSICAL EXAMINATION: HEENT: Head is atraumatic, normocephalic. Pupils equal, round. Neck is supple. There is no elevated jugular venous pressure. HEART EXAMINATION: Heart S1, S2 normal. No murmur or gallop heard. CHEST EXAMINATION: Lungs reveal coarse crackles to bilateral bases. ABDOMEN: Soft, nontender. Bowel sounds are heard. No organomegaly noted. EXTREMITIES: 2+ peripheral pulses with no evidence of peripheral edema and no calf tenderness noted. NEUROLOGIC patient is awake, alert and oriented -3. . Results 05/03/16 05:51 05/03/16 05:51 Cardiac Enzymes 05/02/16 05/02/16 Range/Units 15:24 21:57 CK-MB (CK-2) 15.1 H* 9.3 H* (0.0-2.4) ng/mL Troponin I 0.046 H* 0.042 H* (0.000-0.034) ng/mL Coagulation 05/03/16 Range/Units 05:51 PT 10.6 (9.0-12.0) sec CBC 05/03/16 Range/Units 05:51 WBC 9.8 (3.8-10.6) k/uL RBC 3.21 L (3.80-5.40) m/uL Hgb 10.3 L (11.4-16.0) gm/dL Hct 31.9 L (34.0-46.0) % Plt Count 328 (150-450) k/uL Comprehensive Metabolic Panel 05/03/16 Range/Units 05:51 Sodium 136 L (137-145) mmol/L Potassium 4.1 (3.5-5.1) mmol/L Chloride 106 (98-107) mmol/L Carbon Dioxide 19 L (22-30) mmol/L BUN 54 H (7-17) mg/dL Creatinine 1.00 (0.52-1.04) mg/dL Glucose 83 (74-99) mg/dL Calcium 7.9 L (8.4-10.2) mg/dL Current Medications Generic Name Dose Route Start Last Admin Trade Name Freq PRN Reason Stop Dose Admin Acetaminophen 650 mg 05/02/16 11:45 Tylenol Tab PO Q6HR PRN Mild Pain or Fever > 100.5 Hydrocodone Bitart/Acetaminophen 1 each 05/02/16 11:45 05/03/16 10:03 [place] 5-325 PO 1 each Q4HR PRN Administration Moderate Pain Aspirin 81 mg 05/03/16 09:00 05/03/16 08:32 Aspirin PO 81 mg DAILY [facility] Administration Docusate Sodium 100 mg 05/02/16 21:00 05/03/16 08:32 Colace PO 100 mg BID [facility] Administration Enoxaparin Sodium 40 mg 05/02/16 13:00 05/03/16 08:31 Lovenox SQ 40 mg DAILY [facility] Administration Fluticasone Propionate 1 spray 05/03/16 09:00 05/03/16 08:31 Flonase Nasal [place] EA NOSTRIL 1 spray DAILY [facility] Administration Gabapentin 400 mg 05/02/16 17:30 05/03/16 12:13 Neurontin PO 400 mg AC-TID [facility] Administration Levofloxacin 500 mg/ IV 100 mls @ 100 mls/hr 05/03/16 09:00 05/03/16 08:31 Solution IVPB 100 mls/hr DAILY [facility] Administration Levothyroxine Sodium 25 mcg 05/03/16 06:30 05/03/16 06:31 Synthroid PO 25 mcg DAILY@0630 [facility] Administration Methylprednisolone 24 mg 05/04/16 09:00 Medrol Dose Pack PO 05/10/16 08:59 DAILY [facility] Taper Morphine Sulfate 2 mg 05/02/16 12:28 05/03/16 12:14 Morphine Sulfate (Inj) IV 2 mg Q4HR PRN Administration Severe Pain Multivitamins 1 each 05/03/16 12:00 05/03/16 12:13 Theragran PO 1 each DAILY@1200 [facility] Administration Naloxone HCl 0.2 mg 05/02/16 11:45 Narcan IV Q2M PRN Opioid Reversal Ondansetron HCl 4 mg 05/02/16 11:45 Zofran IVP Q8HR PRN Nausea And Vomiting Pantoprazole Sodium 40 mg 05/02/16 13:00 05/03/16 08:32 Protonix IV 40 mg DAILY [facility] Administration Intake and Output 05/02/16 05/03/16 05/03/16 22:59 06:59 14:59 Intake Total 1800 120 Balance 1800 120 Intake: Intake, IV Titration 1800 Amount Levofloxacin 500Mg-D5w 100 Pmx 500 mg In Dextrose/ Water 1 100ml.bag @ 100 mls/hr IVPB DAILY [facility] Rx# :[id number] Sodium Chloride 0.9% 1, 1200 000 ml @ 100 mls/hr IV . Q10H STA Rx#:[id number] Sodium Chloride 0.9% 500 500 ml @ 999 mls/hr IV .Q31M ONE Rx#:[id number] Oral 120 Other: Voiding Method Diaper Diaper # Voids 0 1 Weight 46.5 kg 05/03/16 05:51 05/03/16 05:51 EKG Interpretations (text) EKG shows normal sinus rhythm with nonspecific ST-T wave changes. Assessment and Plan Plan: Assessment and plan #1 left lower back and leg pain, orthopedics following. #2 evidence of infiltrate on chest x-ray patient is currently being treated for pneumonia. #3 hyperkalemia #4 abnormal troponins, patient denies having any chest discomfort. EKG shows normal sinus rhythm with no acute changes. CK-MB also abnormal, likely secondary to recent trauma. EKG shows normal sinus rhythm with ST-T wave changes in lateral leads. #5 abnormal BNP was suggestion of mild failure on the x-ray. Plan We will obtain an echocardiogram with Doppler study. Overall picture not suggestive of congestive heart failure, however patient does have abnormal BNP with evidence of mild failure on the chest x-ray. We will give the patient 20 mg of Lasix twice a day. Further recommendations to follow. DNP note has been reviewed, I agree with a documented findings and plan of care. Patient was seen and examined.
[2016-05-03] MEDS: FUROSEMIDE 10 MG/ML 2 ML VIAL IV SCH (19:39)
[2016-05-04] MEDS: MORPHINE SULFATE 4 MG/ML SYRINGE IV PRN ×3 (02:46→21:56)
[2016-05-04] MEDS: HYDROcodone/APAP 5-325MG 1 EACH TAB PO PRN ×2 (03:57→14:27)
[2016-05-04] MEDS: GABAPENTIN 400 MG CAP PO SCH ×3 (06:24→17:15)
[2016-05-04] MEDS: LEVOTHYROXINE 25 MCG TAB PO SCH (06:24)
[2016-05-04 06:25] LABS: Basophils % (A) 0 %; CH 31.7; CHCM 32.3; Eosinophils # (A) 0.1 k/uL (0-0.7); Eosinophils % (A) 1 %; HCT 30.5 % (34.0-46.0); HDW 2.63; Luc # (Auto) 0.22; Luc % (Auto) 2; Lymphocytes # (A) 0.3 k/uL (1.0-4.8); Lymphocytes % (A) 2 %; MCH 32.2 pg (25.0-35.0); MCHC 32.8 g/dL (31.0-37.0); MCV 98.2 fL (80.0-100.0); Mean Platelet Volume 7.1; Monocytes # (A) 0.3 k/uL (0-1.0); Monocytes % (A) 3 %; Neutrophils % (A) 93 %; RBC 3.11 m/uL (3.80-5.40); RDW 12.5 % (11.5-15.5); WBC 12.9 k/uL (3.8-10.6); WBC (Perox) 13.81
[2016-05-04 06:38] LABS: ALT 44 U/L (9-52); AST 47 U/L (14-36); Alkaline Phosphatase 125 U/L (38-126); Anion Gap 7 mmol/L; Blood Urea Nitrogen 35 mg/dL (7-17); Carbon Dioxide 26 mmol/L (22-30); Chloride 105 mmol/L (98-107); Glucose 100 mg/dL (74-99); Non-African American GFR(MDRD) >60 (>60 ml/min/1.73 sqM); Potassium 3.8 mmol/L (3.5-5.1); Sodium 138 mmol/L (137-145); Total Bilirubin 0.3 mg/dL (0.2-1.3); Total Protein 5.2 g/dL (6.3-8.2)
[2016-05-04] MEDS: FUROSEMIDE 10 MG/ML 2 ML VIAL IV SCH ×2 (08:58→21:58)
[2016-05-04] MEDS: LEVOFLOXACIN 500MG-D5W PMX 500 MG in DEXTROSE/WATER 1 100ML.BAG IVPB SCH (09:03)
[2016-05-04] MEDS: DOCUSATE 100 MG CAP PO SCH ×2 (09:04→21:56)
[2016-05-04] MEDS: ASPIRIN 81 MG CHEW PO SCH (09:04)
[2016-05-04] MEDS: FLUTICASONE 50MCG/SPRAY NASAL 16GM EA NOSTRIL SCH (09:04)
[2016-05-04] MEDS: PANTOPRAZOLE 40 MG/10 ML VIAL IV SCH (09:04)
[2016-05-04] MEDS: ENOXAPARIN 40 MG/0.4 ML SYRINGE SQ SCH (09:04)
[2016-05-04] MEDS: methylPREDNISolone 4 MG TAB TAPER PO SCH (09:04)
--- NOTE | 2016-05-04 09:51 | P.CONS ---
History of Present Illness - Chief Complaint walking difficulty - History of Present Illness I had the op to see patient for inpatient rib consultation with regard to walking difficulty. She was admitted to [facility] May 02 with mental status change as well as back pain rated left leg. [facility] and left leg pain. Note lumbar CT demonstrated stenosis L3, 4 and chronic discitis L5.pelvic and lumbar x-rays demonstrate degenerative change L1- 5. Head CT demonstrates atrophy as well as chronic white matter change. Chest x-ray demonstrates COPD, cardiomegaly and right-sided infiltrate. Was seen by cardiology with regard to elevated troponin and STT wave changes. PT and OT prescribed. Previous functional history, as elicited from patient: 89-year-old right-handed white female who is and lives in a trilevel home alone. Retired. Describes independent with cooking, laundry, driving, tub bath and gait without device. You are her regular doctor. Family history cardiac disease in both parents. Review of Systems Review of systems:reports what she believes to be a very active lifestyle for an 89-year-old woman. ENT: Denies sneezes or discharge. Eyes: Denies discharge or photophobia. Cardiac: Denies chest pain or palpitation. Pulmonary: Denies cough or shortness of breath. Breast: Denies discharge or lumps. Gastrointestinal: Denies nausea, emesis, constipation, diarrhea. Genitourinary: Denies discharge or frequency. Musculoskeletal: back pain radiating into left leg. Neurologic: denies weakness but has difficulty elevating any of the limbs off of the bed. Endocrine: Denies shakes or sweats. Oncology: Denies cancers. Dermatologic: Denies rash, itching, pruritus. ALLERGY/immunology: Denies sneezes, rashes. Past Medical History Past Medical History: Hypertension Additional Past Medical History / Comment(s): back problems, neuropathy, arthritis History of Any Multi-Drug Resistant Organisms: None Reported Past Surgical History: Adenoidectomy, Appendectomy, Hysterectomy, Tonsillectomy Past Anesthesia/Blood Transfusion Reactions: No Reported Reaction Past Psychological History: Anxiety Smoking Status: Former smoker Past Alcohol Use History: Daily Past Drug Use History: None Reported - Past Family History Mother History Unknown: Yes Medications and Allergies Home Medications Medication Instructions Recorded Confirmed Type Aspirin 81 mg PO DAILY 02/04/14 05/02/16 History Gabapentin 400 mg PO AC-TID 02/04/14 05/02/16 History Multivitamin/Iron/Folic Acid 1 tab PO DAILY 02/04/14 05/02/16 History [Centrum Complete Multivit Tab] Quinapril HCl [Accupril] 20 mg PO BID 02/04/14 05/02/16 History Alendronate Sodium [Fosamax] 70 mg PO WEEKLY 02/08/14 05/02/16 History Fluticasone Nasal [place] [Flonase 1 spray EA NOSTRIL DAILY 05/02/16 05/02/16 History Nasal [place]] Ibuprofen [Motrin] 800 mg PO BID PRN 05/02/16 05/02/16 History Levothyroxine Sodium [Synthroid] 25 mcg PO DAILY 05/02/16 05/02/16 History Magnesium Hydroxide [Milk of 400 mg PO DAILY PRN 05/02/16 05/02/16 History Magnesia] amLODIPine [Norvasc] 10 mg PO DAILY 05/02/16 05/02/16 History traMADol HCL [Ultram] 50 mg PO Q6H PRN 05/02/16 05/02/16 History Allergies Allergy/AdvReac Type Severity Reaction Status Date / Time Penicillins Allergy Rash/Hives Verified 05/02/16 12:11 Physical Exam Vitals: Vital Signs Temp Pulse Pulse Resp BP Pulse Ox 05/04/16 04:00 97.2 F L 89 89 18 101/52 93 L 05/04/16 00:00 98.5 F 95 95 18 92/56 94 L 05/03/16 19:55 98.2 F 98 98 18 111/82 93 L 05/03/16 16:00 97.2 F L 74 80 19 98/62 94 L 05/03/16 12:00 98.1 F 78 80 18 100/60 95 05/03/16 11:45 94 L Intake and Output 05/03/16 05/04/16 05/04/16 22:59 06:59 14:59 Intake Total 0 Balance 0 Intake: Intake, IV Titration 0 Amount Levofloxacin 500Mg-D5w 0 Pmx 500 mg In Dextrose/ Water 1 100ml.bag @ 100 mls/hr IVPB DAILY [facility] Rx# :[id number] Other: Voiding Method Diaper Diaper # Voids 2 2 Weight 46 kg Skin: atrophic, intact. General: Medium build and comfortable appearance. Head: Normocephalic, atraumatic. Eyes: Symmetric. Pupils equal round. Ears: Symmetric. Hearing within normal limits. Mouth: Clear. Neck: Supple. Carotid without bruit. Cardiac: Regular rate and rhythm. Lungs: Clear anteriorly and posteriorly. Abdomen: Soft active nontender, perhaps slightly protuberant. Extremities: Normal tone. Neurological: Mental status: Alert, cooperative, pleasant. Cranial nerves: Symmetric facial tone and trapezius. Motor: poor movement of legs more so than arms is difficulty elevating legs off of bed. Sensation: Intact throughout. DTRs: Symmetric and equal throughout. Mobility: did not attempt as would require second person for safety and require excess time. Results CBC & Chem 7: 05/04/16 05:50 05/04/16 05:50 Labs: Abnormal Lab Results - Last 24 Hours (Table) 05/04/16 05/04/16 Range/Units 05:50 05:50 WBC 12.9 H (3.8-10.6) k/uL RBC 3.11 L (3.80-5.40) m/uL Hgb 10.0 L (11.4-16.0) gm/dL Hct 30.5 L (34.0-46.0) % Neutrophils # 12.0 H (1.3-7.7) k/uL Lymphocytes # 0.3 L (1.0-4.8) k/uL BUN 35 H (7-17) mg/dL Glucose 100 H (74-99) mg/dL Calcium 8.0 L (8.4-10.2) mg/dL AST 47 H (14-36) U/L Total Protein 5.2 L (6.3-8.2) g/dL Albumin 2.2 L (3.5-5.0) g/dL Chest x-ray: report reviewed (cardiomegaly, COPD, right sided infiltrate.) CT Scan - head: report reviewed (atrophy and chronic white matter change.) Assessment and Plan (1) Back pain Status: Acute Plan: impression: 1. Walking difficulty. 2. Lumbar disc disease with left LS radiculopathy. 3. Troponin and ST-T wave changes. 4. Hypertension. Comments and plan: At this time PT and OT ordered. We'll follow therapies with yourself. Anticipate safety concerns but unsure of ability to tolerate and benefit from aggressive therapy. Initial impression is that patient will require excess time for a subacute rehab program. She has had experience with this and voice reluctance to do this again.
--- NOTE | 2016-05-04 11:07 | P.PN ---
Subjective Patient is an 89-year-old female who presented to [facility] with multiple medical problems including pneumonia, urinary tract infection, intractable back pain, she was admitted to telemetry floor she was started on IV antibiotic. Patient reports that she is still having some cough and productive at times with yellowish sputum's. Pain is tolerable. She's been started on Medrol Dosepak per orthopedics. Is currently on IV Lasix for CHF exacerbation cardiology is following. Patient denies any chest pain. Reports improvement in her breathing. Denies any nausea or vomiting. Denies any bowel movement changes or urinary symptoms. Objective - Vital Signs Vital signs: Vital Signs Temp 97 F L 05/04/16 08:00 Pulse 83 05/04/16 08:00 Resp 18 05/04/16 08:00 BP 90/54 05/04/16 08:00 Pulse Ox 93 L 05/04/16 08:00 Intake & Output 05/03/16 05/04/16 05/04/16 18:59 06:59 18:59 Intake Total 820 0 180 Balance 820 0 180 Weight 46 kg Intake: Intake, IV Titration 300 0 Amount Levofloxacin 500Mg-D5w 100 0 Pmx 500 mg In Dextrose/ Water 1 100ml.bag @ 100 mls/hr IVPB DAILY [facility] Rx# :[id number] Sodium Chloride 0.9% 1, 200 000 ml @ 100 mls/hr IV . Q10H [facility] Rx#:[id number] Oral 520 180 Other: Voiding Method Diaper Diaper Diaper # Voids 2 2 - Exam Head normocephalic Neck supple Lungs: Diminished bilaterally no wheezing or crackles noted Heart regular rate and rhythm S1-S2, no rub or gallop Abdomen is soft nontender nondistended positive bowel sounds no hepatosplenomegaly Extremities no edema Neuro alert and orientated to 3 - Labs CBC & Chem 7: 05/04/16 05:50 05/04/16 05:50 Labs: Abnormal Lab Results - Last 24 Hours (Table) 05/04/16 05/04/16 Range/Units 05:50 05:50 WBC 12.9 H (3.8-10.6) k/uL RBC 3.11 L (3.80-5.40) m/uL Hgb 10.0 L (11.4-16.0) gm/dL Hct 30.5 L (34.0-46.0) % Neutrophils # 12.0 H (1.3-7.7) k/uL Lymphocytes # 0.3 L (1.0-4.8) k/uL BUN 35 H (7-17) mg/dL Glucose 100 H (74-99) mg/dL Calcium 8.0 L (8.4-10.2) mg/dL AST 47 H (14-36) U/L Total Protein 5.2 L (6.3-8.2) g/dL Albumin 2.2 L (3.5-5.0) g/dL Assessment and Plan Plan: #1 pneumonia in the right lung: Continue Levaquin #2 urinary tract infection: Urine culture negative continue Levaquin #3 acute hypoxic respiratory failure secondary to pneumonia #4 acute rhabdomyolysis after a fall and prolonged. On the ground #5 acute kidney injury: Possibly related to dehydration and rhabdomyolysis. Improving with IV fluids. #6 slightly elevated troponin level on presentation, without any chest pain or any suggestion of acute coronary syndrome #7 acute lower back pain with left lower extremity radiculopathy and faculty ambulating. Patient evaluated by Dr. White. Computed tomography scan of the lumbar spine showing an old L2 compression fracture. 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 Continue with current pain control. They did add a Medrol Dosepak. Pain service has also been consulted for better pain control. #8 acute mental status changes likely metabolic encephalopathy related to the UTI and pneumonia. They have also had a toxic encephalopathy due to Ultram. Now improved. #9 acute CHF exacerbation: Elevated BNP on admission and chest x-ray noting mild congestive heart failure. Cardiology is started patient on Lasix 20 mg IV twice a day. Echocardiogram results are pending. #10 hyperkalemia likely related to the acute kidney injury now resolved. #11 positive blood culture with diphtheroid species: Infectious disease has been consulted. Repeat blood cultures ordered. Dr. Crain consulted for evaluation for possible inpatient rehab GI prophylaxis Protonix and DVT prophylaxis Lovenox
--- NOTE | 2016-05-04 12:10 | ECHOF ---
Referral Reason:lv fxn MEASUREMENTS -------- HEIGHT: 154.9 cm WEIGHT: 40.8 kg BP: 123/70 RVIDd: 2.8 cm (< 3.3) IVSd: 1.1 cm (0.6 - 1.1) LVIDd: 3.8 cm (3.9 - 5.3) LVPWd: 1.1 cm (0.6 - 1.1) IVSs: 1.5 cm LVIDs: 2.4 cm LVPWs: 1.4 cm LA Diam: 3.4 cm (2.7 - 3.8) LAESV Index (A-L): 53.32 ml/m Ao Diam: 2.9 cm (2.0 - 3.7) AV Cusp: 1.7 cm (1.5 - 2.6) MV EXCURSION: 17.202 mm (> 18.000) MV EF SLOPE: 45 mm/s (70 - 150) EPSS: 0.4 cm MV E August: 0.62 m/s MV DecT: 195 ms MV A August: 0.42 m/s MV E/A Ratio: 1.47 RAP: 5.00 mmHg RVSP: 43.20 mmHg FINDINGS -------- Sinus rhythm. This was a technically good study. The left ventricular size is normal. There is borderline concentric left ventricular hypertrophy. Overall left ventricular systolic function is normal with, an EF between 55 - 60 %. The right ventricle is normal in size. LA is severely dilated >40 ml/m2 The right atrium is mildly enlarged. There is mild aortic valve sclerosis. The mitral valve leaflets are mildly thickened. [id number] mitral regurgitation is present. Moderate tricuspid regurgitation present. There is mild pulmonary hypertension. The right ventricular systolic pressure, as measured by Doppler, is 43.20mmHg. There is no pulmonic regurgitation present. The aortic root size is normal. Normal inferior vena cava with normal inspiratory collapse consistent with estimated right atrial pressure of 5 mmHg. There is no pericardial effusion. CONCLUSIONS -------- 1. Sinus rhythm. 2. There is no pulmonic regurgitation present. 3. The aortic root size is normal. 4. Normal inferior vena cava with normal inspiratory collapse consistent with estimated right atrial pressure of 5 mmHg. 5. There is no pericardial effusion. 6. This was a technically good study. 7. There is borderline concentric left ventricular hypertrophy. 8. Overall left ventricular systolic function is normal with, an EF between 55 - 60 %. 9. LA is severely dilated >40 ml/m2 10. There is mild aortic valve sclerosis. 11. The mitral valve leaflets are mildly thickened. 12. Ibpf-ny-sarxkrdo mitral regurgitation is present. 13. There is mild pulmonary hypertension. WATCH ENGINEER: Milena Higgins RDCS
--- NOTE | 2016-05-04 13:51 | P.CONS ---
History of Present Illness - Reason for Consult Consult date: 05/04/16 positive blood culture - History of Present Illness This is an 89-year-old female who has history of lumbar spine pain with radiation down the left leg that has been going on for 2 weeks. Patient states that she was hit in her back with the door because her initial pain. She has seen Dr. Chaidez was placed on ibuprofen which did not help and she was called in a prescription for Ultram. Patient apparently has been confused since that time. She came into [facility] emergency center was found to have acute kidney injury with BUN of 68 and creatinine 1.81 and hyperkalemia with 5.5. AST 113, ALT 53 and alkaline phosphatase 184. CK was 2788 and repeat is 1437. Troponins were mildly elevated. Urinalysis was cloudy , blood moderate, the PVCs 13, nitrate and leukoesterase negative. Urine culture showing no growth at 18 hours and finalize. Blood cultures showing gram -positive bacilli/diphtheria species. White count initially 12.1. Patient has been afebrile. Chest x-ray showed COPD, cardiomegaly, right-sided infiltrate. 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 CAT scan of the brain showed no acute abnormality with atrophic change and chronic white matter ischemic change. Patient was admitted to the selective care unit for rhabdomyolysis, acute kidney injury with hyperkalemia, elevated troponins, transaminitis, lumbar pain and possible UTI. Patient has been seen by orthopedic spine with plan for no surgical intervention and possible consult with Dr. Reyes. CAT scan of the lumbar spine showed old mild L2 compression fracture without change. Severe spinal stenosis at L3-4 and L4-5. She is been seen by cardiology and started on Lasix for heart failure and echocardiogram is in process. Patient continues to have low back pain. Patient is an unreliable historian. POA is at the bedside. Review of Systems ROS unobtainable: due to mental status All systems: negative Constitutional: Denies chills, Denies fever Eyes: denies blurred vision, denies pain Ears, nose, mouth and throat: Denies headache, Denies sore throat Cardiovascular: Denies chest pain, Denies shortness of breath Respiratory: Denies cough Gastrointestinal: Denies abdominal pain, Denies diarrhea, Denies nausea, Denies vomiting Genitourinary: Reports urge incontinence, Denies dysuria, Denies hematuria Musculoskeletal: Reports low back pain, Denies myalgias Integumentary: Denies pruritus, Denies rash Neurological: Denies numbness, Denies weakness Psychiatric: Denies anxiety, Denies depression Endocrine: Denies fatigue, Denies weight change Past Medical History Past Medical History: Hypertension Additional Past Medical History / Comment(s): chronic back pain, polyneuropathy, arthritis History of Any Multi-Drug Resistant Organisms: None Reported Past Surgical History: Adenoidectomy, Appendectomy, Hysterectomy, Tonsillectomy Past Anesthesia/Blood Transfusion Reactions: No Reported Reaction Past Psychological History: Anxiety Smoking Status: Former smoker Past Alcohol Use History: Daily Additional Past Alcohol Use History / Comment(s): patient was a smoker for approximately 43 years. 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 She has a cat in the home. She does have a friend that helps her daily. Past Drug Use History: None Reported - Past Family History Mother History Unknown: Yes Medications and Allergies Home Medications Medication Instructions Recorded Confirmed Type Aspirin 81 mg PO DAILY 02/04/14 05/02/16 History Gabapentin 400 mg PO AC-TID 02/04/14 05/02/16 History Multivitamin/Iron/Folic Acid 1 tab PO DAILY 02/04/14 05/02/16 History [Centrum Complete Multivit Tab] Quinapril HCl [Accupril] 20 mg PO BID 02/04/14 05/02/16 History Alendronate Sodium [Fosamax] 70 mg PO WEEKLY 02/08/14 05/02/16 History Fluticasone Nasal [place] [Flonase 1 spray EA NOSTRIL DAILY 05/02/16 05/02/16 History Nasal [place]] Ibuprofen [Motrin] 800 mg PO BID PRN 05/02/16 05/02/16 History Levothyroxine Sodium [Synthroid] 25 mcg PO DAILY 05/02/16 05/02/16 History Magnesium Hydroxide [Milk of 400 mg PO DAILY PRN 05/02/16 05/02/16 History Magnesia] amLODIPine [Norvasc] 10 mg PO DAILY 05/02/16 05/02/16 History traMADol HCL [Ultram] 50 mg PO Q6H PRN 05/02/16 05/02/16 History Allergies Allergy/AdvReac Type Severity Reaction Status Date / Time Penicillins Allergy Rash/Hives Verified 05/02/16 12:11 Physical Exam Vitals: Vital Signs Temp Pulse Pulse Resp BP Pulse Ox 05/04/16 12:00 97.3 F L 91 18 116/73 93 L 05/04/16 08:00 97 F L 83 18 90/54 93 L 05/04/16 04:00 97.2 F L 89 89 18 101/52 93 L 05/04/16 00:00 98.5 F 95 95 18 92/56 94 L 05/03/16 19:55 98.2 F 98 98 18 111/82 93 L 05/03/16 16:00 97.2 F L 74 80 19 98/62 94 L Intake and Output 05/03/16 05/04/16 05/04/16 22:59 06:59 14:59 Intake Total 0 180 Balance 0 180 Intake: Intake, IV Titration 0 Amount Levofloxacin 500Mg-D5w 0 Pmx 500 mg In Dextrose/ Water 1 100ml.bag @ 100 mls/hr IVPB DAILY [facility] Rx# :[id number] Oral 180 Other: Voiding Method Diaper Diaper Diaper # Voids 2 2 Weight 46 kg Gen: This is an 89-year-old female. She is found in bed and appears to be in no acute distress. Patient is very talkative. HEENT: Head is atraumatic, normocephalic. Pupils equal, round. Sclerae is anicteric. conjunctiva pink. Mucous membranes of the mouth are dry. No thrush noted. NECK: Supple. No JVD. No lymphadenopathy. No thyromegaly. LUNGS: diminished bilaterallyi. No intercostal retractions. HEART: Regular rate and rhythm. No murmur. ABDOMEN: Soft. Bowel sounds are present. No masses. No tenderness. EXTREMITIES: No pedal edema. No calf tenderness.dorsalis pedis +2 bilaterally. Patient does have lumbar pain with straight leg raise worse on the left than right. Tenderness to the lumbar L4 area on the left NEUROLOGICAL: Patient is awake, alert and oriented x2. Cranial nerves 2 through 12 are grossly intact. patient appears to be somewhat unreliable historian. She is able to give old information but not able to explain what is happening in the last 24-48 hours. She is noted to have her watch upside down on her wrist. Results Results: Laboratory Results WBC 12.9 k/uL (3.8-10.6) H 05/04/16 05:50 RBC 3.11 m/uL (3.80-5.40) L 05/04/16 05:50 Hgb 10.0 gm/dL (11.4-16.0) L 05/04/16 05:50 Hct 30.5 % (34.0-46.0) L 05/04/16 05:50 MCV 98.2 fL (80.0-100.0) 05/04/16 05:50 MCH 32.2 pg (25.0-35.0) 05/04/16 05:50 MCHC 32.8 g/dL (31.0-37.0) 05/04/16 05:50 RDW 12.5 % (11.5-15.5) 05/04/16 05:50 Plt Count 357 k/uL (150-450) 05/04/16 05:50 Neutrophils % 93 % 05/04/16 05:50 Lymphocytes % 2 % 05/04/16 05:50 Monocytes % 3 % 05/04/16 05:50 Eosinophils % 1 % 05/04/16 05:50 Basophils % 0 % 05/04/16 05:50 Neutrophils # 12.0 k/uL (1.3-7.7) H 05/04/16 05:50 Lymphocytes # 0.3 k/uL (1.0-4.8) L 05/04/16 05:50 Monocytes # 0.3 k/uL (0-1.0) 05/04/16 05:50 Eosinophils # 0.1 k/uL (0-0.7) 05/04/16 05:50 Basophils # 0.0 k/uL (0-0.2) 05/04/16 05:50 Hypochromasia Slight 05/03/16 05:51 PT 10.6 sec (9.0-12.0) 05/03/16 05:51 INR 1.1 (<1.1) 05/03/16 05:51 APTT 26.3 sec (22.0-30.0) 05/02/16 09:20 Sodium 138 mmol/L (137-145) 05/04/16 05:50 Potassium 3.8 mmol/L (3.5-5.1) 05/04/16 05:50 Chloride 105 mmol/L (98-107) 05/04/16 05:50 Carbon Dioxide 26 mmol/L (22-30) 05/04/16 05:50 Anion Gap 7 mmol/L 05/04/16 05:50 BUN 35 mg/dL (7-17) H 05/04/16 05:50 Creatinine 0.70 mg/dL (0.52-1.04) 05/04/16 05:50 Est GFR (MDRD) Af Amer >60 (>60 ml/min/1.73 sqM) 05/04/16 05:50 Est GFR (MDRD) Non-Af >60 (>60 ml/min/1.73 sqM) 05/04/16 05:50 Glucose 100 mg/dL (74-99) H 05/04/16 05:50 Calcium 8.0 mg/dL (8.4-10.2) L 05/04/16 05:50 Phosphorus 4.5 mg/dL (2.5-4.5) 05/02/16 09:20 Magnesium 3.1 mg/dL (1.6-2.3) H 05/02/16 09:20 Total Bilirubin 0.3 mg/dL (0.2-1.3) 05/04/16 05:50 AST 47 U/L (14-36) H 05/04/16 05:50 ALT 44 U/L (9-52) 05/04/16 05:50 Alkaline Phosphatase 125 U/L (38-126) 05/04/16 05:50 Total Creatine Kinase 1437 U/L (30-135) H 05/02/16 21:57 CK-MB (CK-2) 9.3 ng/mL (0.0-2.4) H* 05/02/16 21:57 CK-MB (CK-2) Rel Index 0.6 05/02/16 21:57 Troponin I 0.042 ng/mL (0.000-0.034) H* 05/02/16 21:57 NT-Pro-B Natriuret Pep 6130 pg/mL 05/02/16 09:20 Total Protein 5.2 g/dL (6.3-8.2) L 05/04/16 05:50 Albumin 2.2 g/dL (3.5-5.0) L 05/04/16 05:50 Urine Color Yellow 05/02/16 09:20 Urine Appearance Cloudy (Clear) H 05/02/16 09:20 Urine pH 5.5 (5.0-8.0) 05/02/16 09:20 Ur Specific [place] 1.014 (1.001-1.035) 05/02/16 09:20 Urine Protein 1+ (Negative) H 05/02/16 09:20 Urine Glucose (UA) Negative (Negative) 05/02/16 09:20 Urine Ketones Negative (Negative) 05/02/16 09:20 Urine Blood Moderate (Negative) H 05/02/16 09:20 Urine Nitrite Negative (Negative) 05/02/16 09:20 Urine Bilirubin Negative (Negative) 05/02/16 09:20 Urine Urobilinogen <2.0 mg/dL (<2.0) 05/02/16 09:20 Ur Leukocyte Esterase Negative (Negative) 05/02/16 09:20 Urine WBC 13 /hpf (0-5) H 05/02/16 09:20 Urine WBC Clumps Few /hpf (None) H 05/02/16 09:20 Amorphous Sediment Rare /hpf (None) H 05/02/16 09:20 Granular Casts 1 /lpf (0) 05/02/16 09:20 Urine Mucus Rare /hpf (None) H 05/02/16 09:20 CBC & Chem 7: 05/04/16 05:50 05/04/16 05:50 Labs: Abnormal Lab Results - Last 24 Hours (Table) 05/04/16 05/04/16 Range/Units 05:50 05:50 WBC 12.9 H (3.8-10.6) k/uL RBC 3.11 L (3.80-5.40) m/uL Hgb 10.0 L (11.4-16.0) gm/dL Hct 30.5 L (34.0-46.0) % Neutrophils # 12.0 H (1.3-7.7) k/uL Lymphocytes # 0.3 L (1.0-4.8) k/uL BUN 35 H (7-17) mg/dL Glucose 100 H (74-99) mg/dL Calcium 8.0 L (8.4-10.2) mg/dL AST 47 H (14-36) U/L Total Protein 5.2 L (6.3-8.2) g/dL Albumin 2.2 L (3.5-5.0) g/dL Assessment and Plan Plan: this is an 89-year-old female who presented to hospital with lumbar pain. Blood culture is showing diphtheroid species which is a contamination. Repeat blood cultures are in process. She is currently on Levaquin for a right- sided infiltrate. Patient has presented with rhabdomyolysis, acute kidney injury with hyperkalemia, elevated troponins, elevated transaminase. Cardiology is following for heart failure and echocardiogram is pending. It does not appear patient has urinary tract infection. She denies any pain or burning with urination. She does have chronic incontinence. CAT scan of the lumbar spine did not show any abscess or fluid collections. Continue supportive care. Further recommendations as patient progresses. The above dictated assessment and findings were discussed with Dr. Fuller. The impression and plan of care have been directed as dictated. Vivien Palomares nurse practitioner acting as scribe for Dr. Fuller. Time with Patient: Greater than 30
--- NOTE | 2016-05-04 14:00 | P.PN ---
Subjective Principal diagnosis: Left leg pain Is an 89-year-old female who recently had an injury with her garage door, which she's been experiencing left lower back pain and left leg pain. She did go to [facility], she was initially treated with ibuprofen and recently started on Ultram. She states that her graphics manager and friend stopped in to see her, she was speaking goofy, for this reason she was brought to the emergency room. The pain in her left hip and left leg was quite severe on arrival here. Patient denies any difficulty in breathing at home she does admit that she's had a cough, nonproductive. She denies any fever or chills, denies any chest discomfort. Patient does have prior history of hypertension, and prior history of smoking. EKG on arrival shows normal sinus rhythm with nonspecific ST-T wave changes in the lateral leads. Chest x-ray on arrival showed COPD, car to megaly, and right-sided infiltrate. CAt scan of the brain was performed which did not reveal any acute abnormality. BNP level 6130. Patient was initiated on a small dose of IV Lasix yesterday, her weight is down 0.5 kg today. Potassium 3.8, BUN 35, creatinine 0.7. Echocardiogram with Doppler study revealed an ejection fraction of 55-60%. Mild to moderate mitral regurgitation noted. Overall patient states she feels well today, can't comment on improvement in breathing because the patient states she was never short of breath. Objective - Vital Signs Vital signs: Vital Signs Temp 97.3 F L 05/04/16 12:00 Pulse 91 05/04/16 12:00 Resp 18 05/04/16 12:00 BP 116/73 05/04/16 12:00 Pulse Ox 93 L 05/04/16 12:00 Intake & Output 05/03/16 05/04/16 05/04/16 18:59 06:59 18:59 Intake Total 820 0 180 Balance 820 0 180 Weight 46 kg Intake: Intake, IV Titration 300 0 Amount Levofloxacin 500Mg-D5w 100 0 Pmx 500 mg In Dextrose/ Water 1 100ml.bag @ 100 mls/hr IVPB DAILY [facility] Rx# :[id number] Sodium Chloride 0.9% 1, 200 000 ml @ 100 mls/hr IV . Q10H [facility] Rx#:[id number] Oral 520 180 Other: Voiding Method Diaper Diaper Diaper # Voids 2 2 - Exam PHYSICAL EXAMINATION: HEENT: Head is atraumatic, normocephalic. Pupils equal, round. Neck is supple. There is no elevated jugular venous pressure. HEART EXAMINATION: Heart S1 and S2 systolic murmur is heard CHEST EXAMINATION: Lungs reveal fine crackles to bilateral bases. ABDOMEN: Soft, nontender. Bowel sounds are heard. No organomegaly noted. EXTREMITIES: 2+ peripheral pulses with no evidence of peripheral edema and no calf tenderness noted. NEUROLOGIC patient is awake, alert and oriented -3. . - Labs CBC & Chem 7: 05/04/16 05:50 05/04/16 05:50 Labs: Abnormal Lab Results - Last 24 Hours (Table) 05/04/16 05/04/16 Range/Units 05:50 05:50 WBC 12.9 H (3.8-10.6) k/uL RBC 3.11 L (3.80-5.40) m/uL Hgb 10.0 L (11.4-16.0) gm/dL Hct 30.5 L (34.0-46.0) % Neutrophils # 12.0 H (1.3-7.7) k/uL Lymphocytes # 0.3 L (1.0-4.8) k/uL BUN 35 H (7-17) mg/dL Glucose 100 H (74-99) mg/dL Calcium 8.0 L (8.4-10.2) mg/dL AST 47 H (14-36) U/L Total Protein 5.2 L (6.3-8.2) g/dL Albumin 2.2 L (3.5-5.0) g/dL Assessment and Plan Plan: Assessment and plan #1 left lower back and leg pain, orthopedics following. #2 evidence of infiltrate on chest x-ray patient is currently being treated for pneumonia. #3 hyperkalemia #4 abnormal troponins, patient denies having any chest discomfort. EKG shows normal sinus rhythm with no acute changes. CK-MB also abnormal, likely secondary to recent trauma. EKG shows normal sinus rhythm with ST-T wave changes in lateral leads. #5 abnormal BNP was suggestion of mild failure on the x-ray. Plan Echocardiogram with Doppler study reveals normal left ventricular systolic function with mild to moderate mitral regurgitation. We will discontinue the IV Lasix today and start the patient on a low-dose of oral diuretics. She's been encouraged to be up in the chair today. DNP note has been reviewed, I agree with a documented findings and plan of care. Patient was seen and examined.
[2016-05-04] MEDS: MULTIVITAMINS, THERA 1 EACH TAB PO SCH (14:25)
--- NOTE | 2016-05-04 19:34 | P.CON ---
Consult Note - . Consult date: 05/04/16 Assessment/Plan:: This is an 89-year-old female who has history of lumbar spine pain with radiation down the left leg that has been going on for 2 weeks. Patient states that she was hit in her back with the door because her initial pain. She has seen Dr. Chaidez was placed on ibuprofen which did not help and she was called in a prescription for Ultram. Patient apparently has been confused since that time. She came into [facility] emergency center was found to have acute kidney injury with BUN of 68 and creatinine 1.81 and hyperkalemia with 5.5. AST 113, ALT 53 and alkaline phosphatase 184. CK was 2788 and repeat is 1437. Troponins were mildly elevated. Urinalysis was cloudy , blood moderate, the PVCs 13, nitrate and leukoesterase negative. Urine culture showing no growth at 18 hours and finalize. Blood cultures showing gram -positive bacilli/diphtheria species. White count initially 12.1. Patient has been afebrile. Chest x-ray showed COPD, cardiomegaly, right-sided infiltrate. 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 CAT scan of the brain showed no acute abnormality with atrophic change and chronic white matter ischemic change. Patient was admitted to the selective care unit for rhabdomyolysis, acute kidney injury with hyperkalemia, elevated troponins, transaminitis, lumbar pain and possible UTI. Patient has been seen by orthopedic spine with plan for no surgical intervention and possible consult with Dr. Reyes. CAT scan of the lumbar spine showed old mild L2 compression fracture without change. Severe spinal stenosis at L3-4 and L4-5. She is been seen by cardiology and started on Lasix for heart failure and echocardiogram is in process. Patient continues to have low back pain. Patient is an unreliable historian. POA is at the bedside. Please see the consult note is dictated by nurse practitioner Vivien Jelani. As noted the patient is a difficult historian. She provides a rambling history. It is possible that she's had some falls. This could be the etiology of her rhabdomyolysis in the resultant acute renal failure with hyperkalemia. Echo was pending. Evidence of congestive heart failure is being treated by cardiology. He has noted the blood cultures showing evidence of diphtheroids which is a contamination and would not initiate further or broaden antibiotic therapy for levofloxacin but concerns to a right-sided pneumonia. She does have rhabdomyolysis with CT scanning of the area does not show evidence of any psoas abscess, epidural or paraspinous abscess. I agree with evaluation, assessment and plan is dictated by nurse practitioner Mrs. Vivien Palomares.
--- NOTE | 2016-05-04 21:26 | XR ---
EXAMINATION TYPE: XR chest 2V DATE OF EXAM: 05/04/2016 9:09 PM COMPARISON: 05/02/2016 HISTORY: Pneumonia TECHNIQUE: Frontal and lateral views of the chest are obtained. FINDINGS: There is mild pulmonary vascular congestion. There is blunting of costophrenic angles. The re is some infiltrate at the posterior lung bases. There are no hilar masses. There are chest leads. Thoracic aorta is atheromatous. There is 30% anterior wedging of a midthoracic vertebra. This is prob ably T8. IMPRESSION: There is probably mild congestive heart failure. There are new bilateral pleural effusio ns compared to last exam. There are new basilar pulmonary infiltrates. There is infiltrate in the rig ht mid lung on previous exam that is not obvious on today's exam.
[2016-05-05] MEDS: HYDROcodone/APAP 5-325MG 1 EACH TAB PO PRN ×4 (04:32→22:13)
[2016-05-05 06:16] LABS: Basophils % (A) 0 %; CH 31.2; CHCM 31.5; Eosinophils % (A) 0 %; HCT 32.3 % (34.0-46.0); HDW 2.63; HGB 10.2 gm/dL (11.4-16.0); Hypochromasia Slight; Luc # (Auto) 0.22; Luc % (Auto) 1; Lymphocytes # (A) 0.5 k/uL (1.0-4.8); Lymphocytes % (A) 3 %; MCH 31.3 pg (25.0-35.0); MCHC 31.5 g/dL (31.0-37.0); MCV 99.3 fL (80.0-100.0); Mean Platelet Volume 6.9; Monocytes # (A) 0.6 k/uL (0-1.0); Monocytes % (A) 3 %; Neutrophils # (A) 15.4 k/uL (1.3-7.7); Neutrophils % (A) 92 %; RBC 3.25 m/uL (3.80-5.40); RDW 12.4 % (11.5-15.5); WBC 16.7 k/uL (3.8-10.6); WBC (Perox) 17.62
[2016-05-05] MEDS: LEVOTHYROXINE 25 MCG TAB PO SCH (06:16)
[2016-05-05] MEDS: GABAPENTIN 400 MG CAP PO SCH ×3 (06:16→17:18)
[2016-05-05 06:27] LABS: ALT 43 U/L (9-52); AST 38 U/L (14-36); Alkaline Phosphatase 123 U/L (38-126); Anion Gap 8 mmol/L; Blood Urea Nitrogen 26 mg/dL (7-17); Calcium 8.4 mg/dL (8.4-10.2); Carbon Dioxide 27 mmol/L (22-30); Chloride 104 mmol/L (98-107); Glucose 119 mg/dL (74-99); Non-African American GFR(MDRD) >60 (>60 ml/min/1.73 sqM); Sodium 139 mmol/L (137-145); Total Bilirubin 0.3 mg/dL (0.2-1.3); Total Protein 5.6 g/dL (6.3-8.2)
[2016-05-05] MEDS: FUROSEMIDE 10 MG/ML 2 ML VIAL IV SCH ×2 (09:12→20:18)
[2016-05-05] MEDS: ASPIRIN 81 MG CHEW PO SCH (09:13)
[2016-05-05] MEDS: DOCUSATE 100 MG CAP PO SCH ×2 (09:13→20:18)
[2016-05-05] MEDS: methylPREDNISolone 4 MG TAB TAPER PO SCH (09:13)
[2016-05-05] MEDS: PANTOPRAZOLE 40 MG TABLET PO SCH (09:13)
[2016-05-05] MEDS: LEVOFLOXACIN 250 MG TAB PO SCH (09:13)
[2016-05-05] MEDS: FLUTICASONE 50MCG/SPRAY NASAL 16GM EA NOSTRIL SCH (09:14)
[2016-05-05] MEDS: ENOXAPARIN 40 MG/0.4 ML SYRINGE SQ SCH (09:15)
--- NOTE | 2016-05-05 12:28 | P.PN ---
Subjective Principal diagnosis: Left leg pain Is an 89-year-old female who recently had an injury with her garage door, which she's been experiencing left lower back pain and left leg pain. She did go to [facility], she was initially treated with ibuprofen and recently started on Ultram. She states that her housekeeper manager and friend stopped in to see her, she was speaking goofy, for this reason she was brought to the emergency room. The pain in her left hip and left leg was quite severe on arrival here. Patient denies any difficulty in breathing at home she does admit that she's had a cough, nonproductive. She denies any fever or chills, denies any chest discomfort. Patient does have prior history of hypertension, and prior history of smoking. EKG on arrival shows normal sinus rhythm with nonspecific ST-T wave changes in the lateral leads. Patient had been initiated on a small dose of IV Lasix, diuresed well. We will discontinue the IV Lasix today and changed over to oral diuretics. She is currently being followed by ID specialty as well because of positive blood cultures. We will follow this patient with you now on an as-needed basis only, please don't hesitate to call with any questions. Objective - Vital Signs Vital signs: Vital Signs Temp 97 F L 05/05/16 08:00 Pulse 82 05/05/16 11:26 Resp 16 05/05/16 11:26 BP 107/52 05/05/16 08:00 Pulse Ox 94 L 05/05/16 08:00 Intake & Output 05/04/16 05/05/16 05/05/16 18:59 06:59 18:59 Intake Total 434 720 240 Output Total 100 Balance 434 620 240 Weight 51 kg Intake: Oral 434 720 240 Output: Urine 100 Other: Voiding Method Diaper Diaper Diaper # Voids 1 1 - Exam PHYSICAL EXAMINATION: HEENT: Head is atraumatic, normocephalic. Pupils equal, round. Neck is supple. There is no elevated jugular venous pressure. HEART EXAMINATION: Heart S1 and S2 systolic murmur is heard CHEST EXAMINATION: Lungs reveal fine crackles to bilateral bases. ABDOMEN: Soft, nontender. Bowel sounds are heard. No organomegaly noted. EXTREMITIES: 2+ peripheral pulses with no evidence of peripheral edema and no calf tenderness noted. NEUROLOGIC patient is awake, alert and oriented -3. . - Labs CBC & Chem 7: 05/05/16 06:00 05/05/16 06:00 Labs: Abnormal Lab Results - Last 24 Hours (Table) 05/04/16 05/05/16 05/05/16 Range/Units 05:50 06:00 06:00 WBC 16.7 H (3.8-10.6) k/uL RBC 3.25 L (3.80-5.40) m/uL Hgb 10.2 L (11.4-16.0) gm/dL Hct 32.3 L (34.0-46.0) % Neutrophils # 15.4 H (1.3-7.7) k/uL Lymphocytes # 0.5 L (1.0-4.8) k/uL BUN 26 H (7-17) mg/dL Glucose 119 H (74-99) mg/dL AST 38 H (14-36) U/L Creatine Kinase 549 H (30-135) U/L Total Protein 5.6 L (6.3-8.2) g/dL Albumin 2.4 L (3.5-5.0) g/dL Microbiology - Last 24 Hours (Table) 05/04/16 09:40 Blood Culture - Preliminary Blood No Growth after 24 hours 05/04/16 09:52 Blood Culture - Preliminary Blood No Growth after 24 hours Assessment and Plan Plan: Assessment and plan #1 left lower back and leg pain, orthopedics following. #2 evidence of infiltrate on chest x-ray patient is currently being treated for pneumonia. #3 hyperkalemia #4 abnormal troponins, patient denies having any chest discomfort. EKG shows normal sinus rhythm with no acute changes. CK-MB also abnormal, likely secondary to recent trauma. EKG shows normal sinus rhythm with ST-T wave changes in lateral leads. #5 abnormal BNP was suggestion of mild failure on the x-ray. 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 #6 positive blood cultures Plan From cardiology's perspective, we'll discontinue the IV Lasix and start the patient on oral diuretics. We'll follow this patient with you now on an as- needed basis only, please don't hesitate to call with any questions. DNP note has been reviewed, I agree with a documented findings and plan of care. Patient was seen and examined.
[2016-05-05] MEDS: MULTIVITAMINS, THERA 1 EACH TAB PO SCH (12:35)
--- NOTE | 2016-05-05 12:56 | CDI ---
In responding to this query, please exercise your independent professional judgment. The [facility] Coding Staff and Clinical Documentation Specialists appreciate your assistance in clarifying documentation, maintaining compliance with coding guidelines, accurately documenting patients condition and capturing severity of illness. The fact that a question is asked does not imply that any particular answer is desired or expected. Communication forms are a method of clarifying documentation and are not made part of the Legal Health Record. Thank you in advance for your clarification. Last Revision, April 2015 [employer] [address] [place] [address] Documentation Clarification Form Date: 05/05/2016 12:41:00 PM From: Lizbeth Kang Admit Date: 05/02/2016 11:45:00 AM Patient Name: Melany Barragan Visit Number: [id number] Discharge Date: Dr. Adeline Saucedo and covering infertility medical assistant (not documented): CHF is documented in the cardiology consult: "We will obtain an echocardiogram with Doppler study. Overall picture not suggestive of congestive heart failure, however patient does have abnormal BNP with evidence of mild failure on the chest x- ray. We will give the patient 20 mg of Lasix twice a day." History: Hypertension, Back problems, Neuropathy, Arthritis, Anxiety, Former Smoker. Clinical Indicators: Presented with acute mental status changes possibly due to Ultram, given for back pain. Troponins elevated on admission: 0.062, 0.046, 0.042 VS: T 97.5, P 62 - 77, R 16, BP 126/62, PO 90 ra BNP: 6130 Echocardiogram Results: Left ventricular systolic function is normal w/EF between 55-60%, mild-mod mitral regurgitation, mild pulm hypertension. Chest X Ray: 05/02: Cardiomegaly 05/04: Probably mild congestive heart failure, new bilateral pleural effusions. Treatment: IV Lasix on 05/03, IV fluids, IV fluid bolus x2, IV Tylenol, IV Levaquin, IV Ms, O2 2Lnc Consults: Cardiology, Rehab Physiology, Infectious Disease, Orthopedic Spine Surgery In your professional opinion, can you please clarify the acuity and type of CHF if known? Acute Chronic Acute on Chronic AND Systolic Diastolic Systolic and Diastolic Cor Pulmonale (Right Sided HF w/ Pulmonary HTN) Unable to determine Other, please specify If known, please specify if Heart Failure is due to: Hypertension Rheumatic Fever Please document in your progress notes and discharge summary in order to capture severity of illness and risk of mortality. Include clinical findings that support your diagnosis. FYI: Press F11 to launch patient chart. Place X here if this finding has no clinical significance, is not applicable or if you are not able to provide any additional documentation. Thank You. ZAIDA
--- NOTE | 2016-05-05 13:58 | P.PN ---
Subjective Principal diagnosis: Pneumonia Patient is an 89-year-old female who presented to [facility] with multiple medical problems including pneumonia, urinary tract infection, intractable back pain, she was admitted to telemetry floor she was started on IV antibiotic, patient had some minimal improvement since yesterday. Objective - Vital Signs Vital signs: Vital Signs Temp 97 F L 05/05/16 08:00 Pulse 82 05/05/16 12:00 Resp 16 05/05/16 12:00 BP 118/66 05/05/16 12:00 Pulse Ox 95 05/05/16 12:00 Intake & Output 05/04/16 05/05/16 05/05/16 18:59 06:59 18:59 Intake Total 434 720 480 Output Total 100 Balance 434 620 480 Weight 51 kg Intake: Oral 434 720 480 Output: Urine 100 Other: Voiding Method Diaper Diaper Diaper # Voids 1 1 - Exam In general patient is alert and oriented 3 in no apparent distress HEENT head normocephalic and atraumatic Neck is supple no JVD no goiter no lymphadenopathy Chest exam reveals coarse crackles in both lung vuong no wheezing Cardiac exam reveals regular heart sounds no gallops no murmurs Abdomen is soft nontender no organomegaly Extremity exam reveals no edema no cyanosis or clubbing - Labs CBC & Chem 7: 05/05/16 06:00 05/05/16 06:00 Labs: Abnormal Lab Results - Last 24 Hours (Table) 05/04/16 05/05/16 05/05/16 Range/Units 05:50 06:00 06:00 WBC 16.7 H (3.8-10.6) k/uL RBC 3.25 L (3.80-5.40) m/uL Hgb 10.2 L (11.4-16.0) gm/dL Hct 32.3 L (34.0-46.0) % Neutrophils # 15.4 H (1.3-7.7) k/uL Lymphocytes # 0.5 L (1.0-4.8) k/uL BUN 26 H (7-17) mg/dL Glucose 119 H (74-99) mg/dL AST 38 H (14-36) U/L Creatine Kinase 549 H (30-135) U/L Total Protein 5.6 L (6.3-8.2) g/dL Albumin 2.4 L (3.5-5.0) g/dL Microbiology - Last 24 Hours (Table) 05/04/16 09:40 Blood Culture - Preliminary Blood No Growth after 24 hours 05/04/16 09:52 Blood Culture - Preliminary Blood No Growth after 24 hours Assessment and Plan Plan: #1 right lung infiltrate suggestive of pneumonia #2 urinary tract infection #3 acute hypoxic respiratory failure #4 acute rhabdomyolysis #5 acute kidney injury, improving #6 slightly elevated troponin level on presentation, without any chest pain or any suggestion of acute coronary syndrome #7 acute intractable back pain with physical debility with inability to sit or stand #8 positive blood culture for dephterioid species possibly a contaminant At this time continue with current medications sputum sample for culture and Gram stain Recheck chest x-ray tomorrow recheck labs Consult physical therapy and occupational therapy
--- NOTE | 2016-05-05 21:34 | P.PN ---
Subjective Principal diagnosis: Weakness This is an 89-year-old female who has history of lumbar spine pain with radiation down the left leg that has been going on for 2 weeks. Patient states that she was hit in her back with the door because her initial pain. She has seen Dr. Chaidez was placed on ibuprofen which did not help and she was called in a prescription for Ultram. Patient apparently has been confused since that time. She came into [facility] emergency center was found to have acute kidney injury with BUN of 68 and creatinine 1.81 and hyperkalemia with 5.5. AST 113, ALT 53 and alkaline phosphatase 184. CK was 2788 and repeat is 1437. Troponins were mildly elevated. Urinalysis was cloudy , blood moderate, the PVCs 13, nitrate and leukoesterase negative. Urine culture showing no growth at 18 hours and finalize. Blood cultures showing gram -positive bacilli/diphtheria species. White count initially 12.1. Patient has been afebrile. Chest x-ray showed COPD, cardiomegaly, right-sided infiltrate. 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 CAT scan of the brain showed no acute abnormality with atrophic change and chronic white matter ischemic change. Patient was admitted to the selective care unit for rhabdomyolysis, acute kidney injury with hyperkalemia, elevated troponins, transaminitis, lumbar pain and possible UTI. Patient has been seen by orthopedic spine with plan for no surgical intervention and possible consult with Dr. Reyes. CAT scan of the lumbar spine showed old mild L2 compression fracture without change. Severe spinal stenosis at L3-4 and L4-5. She is been seen by cardiology and started on Lasix for heart failure and echocardiogram is in process. Patient continues to have low back pain. Patient is an unreliable historian. Patient's goal is to sit at the side of the bed tomorrow. She still was not feeling very well. Objective - Vital Signs Vital signs: Vital Signs Temp 97 F L 05/05/16 08:00 Pulse 82 05/05/16 12:00 Resp 16 05/05/16 12:00 BP 118/66 05/05/16 12:00 Pulse Ox 95 05/05/16 12:00 Intake & Output 05/05/16 05/05/16 05/06/16 06:59 18:59 06:59 Intake Total 720 480 Output Total 100 Balance 620 480 Weight 51 kg Intake: Oral 720 480 Output: Urine 100 Other: Voiding Method Diaper Diaper # Voids 1 - Exam Gen: This is an 89-year-old female. She is found in bed and appears to be in no acute distress. Patient is very talkative. HEENT: Head is atraumatic, normocephalic. Pupils equal, round. Sclerae is anicteric. conjunctiva pink. Mucous membranes of the mouth are dry. No thrush noted. NECK: Supple. No JVD. No lymphadenopathy. No thyromegaly. LUNGS: diminished bilaterallyi. No intercostal retractions. HEART: Regular rate and rhythm. No murmur. ABDOMEN: Soft. Bowel sounds are present. No masses. No tenderness. EXTREMITIES: No pedal edema. No calf tenderness.dorsalis pedis +2 bilaterally. Patient does have lumbar pain with straight leg raise worse on the left than right. Tenderness to the lumbar L4 area on the left NEUROLOGICAL: Patient is awake, alert and oriented x2. Cranial nerves 2 through 12 are grossly intact. patient appears to be somewhat unreliable historian. She is able to give old information but not able to explain what is happening in the last 24-48 hours. Her watch was upside down and I helped her fix-it - Labs CBC & Chem 7: 05/05/16 06:00 05/05/16 06:00 Labs: Abnormal Lab Results - Last 24 Hours (Table) 05/05/16 05/05/16 Range/Units 06:00 06:00 WBC 16.7 H (3.8-10.6) k/uL RBC 3.25 L (3.80-5.40) m/uL Hgb 10.2 L (11.4-16.0) gm/dL Hct 32.3 L (34.0-46.0) % Neutrophils # 15.4 H (1.3-7.7) k/uL Lymphocytes # 0.5 L (1.0-4.8) k/uL BUN 26 H (7-17) mg/dL Glucose 119 H (74-99) mg/dL AST 38 H (14-36) U/L Total Protein 5.6 L (6.3-8.2) g/dL Albumin 2.4 L (3.5-5.0) g/dL Microbiology - Last 24 Hours (Table) 05/04/16 09:40 Blood Culture - Preliminary Blood No Growth after 24 hours 05/04/16 09:52 Blood Culture - Preliminary Blood No Growth after 24 hours Laboratory Results WBC 16.7 k/uL (3.8-10.6) H 05/05/16 06:00 RBC 3.25 m/uL (3.80-5.40) L 05/05/16 06:00 Hgb 10.2 gm/dL (11.4-16.0) L 05/05/16 06:00 Hct 32.3 % (34.0-46.0) L 05/05/16 06:00 MCV 99.3 fL (80.0-100.0) 05/05/16 06:00 MCH 31.3 pg (25.0-35.0) 05/05/16 06:00 MCHC 31.5 g/dL (31.0-37.0) 05/05/16 06:00 RDW 12.4 % (11.5-15.5) 05/05/16 06:00 Plt Count 418 k/uL (150-450) 05/05/16 06:00 Neutrophils % 92 % 05/05/16 06:00 Lymphocytes % 3 % 05/05/16 06:00 Monocytes % 3 % 05/05/16 06:00 Eosinophils % 0 % 05/05/16 06:00 Basophils % 0 % 05/05/16 06:00 Neutrophils # 15.4 k/uL (1.3-7.7) H 05/05/16 06:00 Lymphocytes # 0.5 k/uL (1.0-4.8) L 05/05/16 06:00 Monocytes # 0.6 k/uL (0-1.0) 05/05/16 06:00 Eosinophils # 0.0 k/uL (0-0.7) 05/05/16 06:00 Basophils # 0.0 k/uL (0-0.2) 05/05/16 06:00 Hypochromasia Slight 05/05/16 06:00 PT 10.6 sec (9.0-12.0) 05/03/16 05:51 INR 1.1 (<1.1) 05/03/16 05:51 APTT 26.3 sec (22.0-30.0) 05/02/16 09:20 Sodium 139 mmol/L (137-145) 05/05/16 06:00 Potassium 4.0 mmol/L (3.5-5.1) 05/05/16 06:00 Chloride 104 mmol/L (98-107) 05/05/16 06:00 Carbon Dioxide 27 mmol/L (22-30) 05/05/16 06:00 Anion Gap 8 mmol/L 05/05/16 06:00 BUN 26 mg/dL (7-17) H 05/05/16 06:00 Creatinine 0.60 mg/dL (0.52-1.04) 05/05/16 06:00 Est GFR (MDRD) Af Amer >60 (>60 ml/min/1.73 sqM) 05/05/16 06:00 Est GFR (MDRD) Non-Af >60 (>60 ml/min/1.73 sqM) 05/05/16 06:00 Glucose 119 mg/dL (74-99) H 05/05/16 06:00 Calcium 8.4 mg/dL (8.4-10.2) 05/05/16 06:00 Phosphorus 4.5 mg/dL (2.5-4.5) 05/02/16 09:20 Magnesium 3.1 mg/dL (1.6-2.3) H 05/02/16 09:20 Total Bilirubin 0.3 mg/dL (0.2-1.3) 05/05/16 06:00 AST 38 U/L (14-36) H 05/05/16 06:00 ALT 43 U/L (9-52) 05/05/16 06:00 Alkaline Phosphatase 123 U/L (38-126) 05/05/16 06:00 Creatine Kinase 549 U/L (30-135) H 05/04/16 05:50 Total Creatine Kinase 1437 U/L (30-135) H 05/02/16 21:57 CK-MB (CK-2) 9.3 ng/mL (0.0-2.4) H* 05/02/16 21:57 CK-MB (CK-2) Rel Index 0.6 05/02/16 21:57 Troponin I 0.042 ng/mL (0.000-0.034) H* 05/02/16 21:57 NT-Pro-B Natriuret Pep 6130 pg/mL 05/02/16 09:20 Total Protein 5.6 g/dL (6.3-8.2) L 05/05/16 06:00 Albumin 2.4 g/dL (3.5-5.0) L 05/05/16 06:00 Urine Color Yellow 05/02/16 09:20 Urine Appearance Cloudy (Clear) H 05/02/16 09:20 Urine pH 5.5 (5.0-8.0) 05/02/16 09:20 Ur Specific [place] 1.014 (1.001-1.035) 05/02/16 09:20 Urine Protein 1+ (Negative) H 05/02/16 09:20 Urine Glucose (UA) Negative (Negative) 05/02/16 09:20 Urine Ketones Negative (Negative) 05/02/16 09:20 Urine Blood Moderate (Negative) H 05/02/16 09:20 Urine Nitrite Negative (Negative) 05/02/16 09:20 Urine Bilirubin Negative (Negative) 05/02/16 09:20 Urine Urobilinogen <2.0 mg/dL (<2.0) 05/02/16 09:20 Ur Leukocyte Esterase Negative (Negative) 05/02/16 09:20 Urine WBC 13 /hpf (0-5) H 05/02/16 09:20 Urine WBC Clumps Few /hpf (None) H 05/02/16 09:20 Amorphous Sediment Rare /hpf (None) H 05/02/16 09:20 Granular Casts 1 /lpf (0) 05/02/16 09:20 Urine Mucus Rare /hpf (None) H 05/02/16 09:20 Microbiology 05/04/16 09:40 Blood Blood Culture - Preliminary No Growth after 24 hours 05/04/16 09:52 Blood Blood Culture - Preliminary No Growth after 24 hours 05/02/16 09:20 Blood Blood Culture Gram Stain - Final 05/02/16 09:20 Blood Blood Culture - Final Diphtheroid species 05/02/16 09:20 Blood Blood Culture - Final 05/02/16 09:20 Urine,Catheterized Urine Culture - Final Assessment and Plan (1) Bacteremia Narrative/Plan: 89-year-old female who is having a decline of her status over time presents to the hospital because she was profoundly weak. She was having severe pain in her lumbar spine. She is evidence of admission of rhabdomyolysis as well as acute renal failure. She is improving overall except for severe and ongoing pain. There was evidence of possible cultures at admission. There however diphtheroid species and this is a contamination. He will not need further treatment. There is concern about pneumonia she's been treated with levofloxacin and seems to be having some improvement. Her acute renal failure has improved. CT without evidence of abscess. Leukocytosis appears related to current steroid therapy. Status: Acute (2) Low back pain Status: Acute (3) Pneumonia Status: Acute (4) Acute kidney injury Status: Acute
[2016-05-05] MEDS: MORPHINE SULFATE 4 MG/ML SYRINGE IV PRN (22:32)
[2016-05-06] MEDS: MORPHINE SULFATE 4 MG/ML SYRINGE IV PRN ×4 (02:17→22:28)
[2016-05-06] MEDS: LEVOTHYROXINE 25 MCG TAB PO SCH (05:53)
[2016-05-06] MEDS: HYDROcodone/APAP 5-325MG 1 EACH TAB PO PRN ×2 (05:53→11:08)
[2016-05-06 06:24] LABS: Basophils % (A) 0 %; CH 31.4; CHCM 31.6; Eosinophils # (A) 0.2 k/uL (0-0.7); Eosinophils % (A) 1 %; HCT 32.8 % (34.0-46.0); HGB 10.3 gm/dL (11.4-16.0); Hypochromasia Slight; Luc # (Auto) 0.22; Luc % (Auto) 2; Lymphocytes # (A) 0.6 k/uL (1.0-4.8); Lymphocytes % (A) 4 %; MCH 31.4 pg (25.0-35.0); MCHC 31.5 g/dL (31.0-37.0); MCV 99.8 fL (80.0-100.0); Monocytes # (A) 0.5 k/uL (0-1.0); Monocytes % (A) 3 %; Neutrophils # (A) 13.3 k/uL (1.3-7.7); Neutrophils % (A) 90 %; RBC 3.29 m/uL (3.80-5.40); RDW 12.4 % (11.5-15.5); WBC 14.9 k/uL (3.8-10.6)
[2016-05-06 06:46] LABS: ALT 38 U/L (9-52); AST 35 U/L (14-36); Alkaline Phosphatase 124 U/L (38-126); Anion Gap 9 mmol/L; Blood Urea Nitrogen 23 mg/dL (7-17); Calcium 8.6 mg/dL (8.4-10.2); Carbon Dioxide 30 mmol/L (22-30); Chloride 103 mmol/L (98-107); Glucose 94 mg/dL (74-99); Non-African American GFR(MDRD) >60 (>60 ml/min/1.73 sqM); Potassium 4.2 mmol/L (3.5-5.1); Sodium 142 mmol/L (137-145); Total Bilirubin 0.4 mg/dL (0.2-1.3)
[2016-05-06] MEDS: GABAPENTIN 400 MG CAP PO SCH ×3 (06:52→17:27)
[2016-05-06] MEDS: FLUTICASONE 50MCG/SPRAY NASAL 16GM EA NOSTRIL SCH (09:41)
[2016-05-06] MEDS: DOCUSATE 100 MG CAP PO SCH ×2 (09:41→20:50)
[2016-05-06] MEDS: ASPIRIN 81 MG CHEW PO SCH (09:41)
[2016-05-06] MEDS: ENOXAPARIN 40 MG/0.4 ML SYRINGE SQ SCH (09:42)
[2016-05-06] MEDS: LEVOFLOXACIN 250 MG TAB PO SCH (09:43)
[2016-05-06] MEDS: PANTOPRAZOLE 40 MG TABLET PO SCH (09:44)
[2016-05-06] MEDS: methylPREDNISolone 4 MG TAB TAPER PO SCH (10:16)
[2016-05-06] MEDS: MULTIVITAMINS, THERA 1 EACH TAB PO SCH (11:08)
[2016-05-06] MEDS: FUROSEMIDE 10 MG/ML 2 ML VIAL IV SCH ×2 (11:21→20:50)
--- NOTE | 2016-05-06 13:41 | P.PN ---
Subjective Principal diagnosis: Left leg pain Is an 89-year-old female who recently had an injury with her garage door, which she's been experiencing left lower back pain and left leg pain. She did go to [facility], she was initially treated with ibuprofen and recently started on Ultram. She states that her crew director and friend stopped in to see her, she was speaking goofy, for this reason she was brought to the emergency room. The pain in her left hip and left leg was quite severe on arrival here. Patient denies any difficulty in breathing at home she does admit that she's had a cough, nonproductive. She denies any fever or chills, denies any chest discomfort. Patient does have prior history of hypertension, and prior history of smoking. EKG on arrival shows normal sinus rhythm with nonspecific ST-T wave changes in the lateral leads. Patient had been initiated on a small dose of IV Lasix, diuresed well. We will discontinue the IV Lasix today, start the patient on a low-dose of oral diuretics. She is also being followed by ID service because of positive blood cultures. Objective - Vital Signs Vital signs: Vital Signs Temp 98.8 F 05/06/16 11:41 Pulse 94 05/06/16 11:41 Resp 17 05/06/16 11:41 BP 102/59 05/06/16 11:41 Pulse Ox 95 05/06/16 11:41 Intake & Output 05/05/16 05/06/16 05/06/16 18:59 06:59 18:59 Intake Total 480 20 480 Balance 480 20 480 Weight 48.5 kg Intake: IV 20 0.9 20 Oral 480 480 Other: Voiding Method Diaper Diaper Diaper # Voids 2 1 - Exam PHYSICAL EXAMINATION: HEENT: Head is atraumatic, normocephalic. Pupils equal, round. Neck is supple. There is no elevated jugular venous pressure. HEART EXAMINATION: Heart S1 and S2 systolic murmur is heard CHEST EXAMINATION: Lungs reveal fine crackles to bilateral bases. ABDOMEN: Soft, nontender. Bowel sounds are heard. No organomegaly noted. EXTREMITIES: 2+ peripheral pulses with no evidence of peripheral edema and no calf tenderness noted. NEUROLOGIC patient is awake, alert and oriented -3. . - Labs CBC & Chem 7: 05/06/16 05:57 05/06/16 05:57 Labs: Abnormal Lab Results - Last 24 Hours (Table) 05/06/16 05/06/16 Range/Units 05:57 05:57 WBC 14.9 H (3.8-10.6) k/uL RBC 3.29 L (3.80-5.40) m/uL Hgb 10.3 L (11.4-16.0) gm/dL Hct 32.8 L (34.0-46.0) % Neutrophils # 13.3 H (1.3-7.7) k/uL Lymphocytes # 0.6 L (1.0-4.8) k/uL BUN 23 H (7-17) mg/dL Total Protein 6.0 L (6.3-8.2) g/dL Albumin 2.5 L (3.5-5.0) g/dL Microbiology - Last 24 Hours (Table) 05/04/16 09:40 Blood Culture - Preliminary Blood No Growth after 48 hours 05/04/16 09:52 Blood Culture - Preliminary Blood No Growth after 48 hours Assessment and Plan Plan: Assessment and plan #1 left lower back and leg pain, orthopedics following. #2 evidence of infiltrate on chest x-ray patient is currently being treated for pneumonia. #3 hyperkalemia #4 abnormal troponins, patient denies having any chest discomfort. EKG shows normal sinus rhythm with no acute changes. CK-MB also abnormal, likely secondary to recent trauma. EKG shows normal sinus rhythm with ST-T wave changes in lateral leads. #5 abnormal BNP was suggestion of mild failure on the x-ray. 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 #6 positive blood cultures Plan From cardiology's perspective, we'll discontinue the IV Lasix and start the patient on oral diuretics. We'll follow this patient with you now on an as- needed basis only, please don't hesitate to call with any questions. DNP note has been reviewed, I agree with a documented findings and plan of care. Patient was seen and examined.
--- NOTE | 2016-05-06 16:02 | P.PN ---
Subjective Principal diagnosis: Pneumonia Patient is an 89-year-old female who presented to [facility] with multiple medical problems including pneumonia, urinary tract infection, intractable back pain, she was admitted to telemetry floor she was started on IV antibiotic, patient had some minimal improvement since yesterday. Objective - Vital Signs Vital signs: Vital Signs Temp 98.8 F 05/06/16 11:41 Pulse 94 05/06/16 11:41 Resp 17 05/06/16 11:41 BP 102/59 05/06/16 11:41 Pulse Ox 95 05/06/16 11:41 Intake & Output 05/05/16 05/06/16 05/06/16 18:59 06:59 18:59 Intake Total 480 20 480 Balance 480 20 480 Weight 48.5 kg Intake: IV 20 0.9 20 Oral 480 480 Other: Voiding Method Diaper Diaper Diaper # Voids 2 1 - Exam In general patient is alert and oriented 3 in no apparent distress HEENT head normocephalic and atraumatic Neck is supple no JVD no goiter no lymphadenopathy Chest exam reveals coarse crackles in both lung vuong no wheezing Cardiac exam reveals regular heart sounds no gallops no murmurs Abdomen is soft nontender no organomegaly Extremity exam reveals no edema no cyanosis or clubbing - Labs CBC & Chem 7: 05/06/16 05:57 05/06/16 05:57 Labs: Abnormal Lab Results - Last 24 Hours (Table) 05/06/16 05/06/16 Range/Units 05:57 05:57 WBC 14.9 H (3.8-10.6) k/uL RBC 3.29 L (3.80-5.40) m/uL Hgb 10.3 L (11.4-16.0) gm/dL Hct 32.8 L (34.0-46.0) % Neutrophils # 13.3 H (1.3-7.7) k/uL Lymphocytes # 0.6 L (1.0-4.8) k/uL BUN 23 H (7-17) mg/dL Total Protein 6.0 L (6.3-8.2) g/dL Albumin 2.5 L (3.5-5.0) g/dL Microbiology - Last 24 Hours (Table) 05/04/16 09:40 Blood Culture - Preliminary Blood No Growth after 48 hours 05/04/16 09:52 Blood Culture - Preliminary Blood No Growth after 48 hours Assessment and Plan Plan: #1 right lung infiltrate suggestive of pneumonia #2 urinary tract infection #3 acute hypoxic respiratory failure #4 acute rhabdomyolysis #5 acute kidney injury, improving #6 slightly elevated troponin level on presentation, without any chest pain or any suggestion of acute coronary syndrome #7 acute intractable back pain with physical debility with inability to sit or stand #8 positive blood culture for dephterioid species possibly a contaminant #9 intractable back pain consult anesthesia service for pain management At this time continue with current medications sputum sample for culture and Gram stain Consult physical therapy and occupational therapy
--- NOTE | 2016-05-06 22:09 | P.PN ---
Subjective Principal diagnosis: Weakness This is an 89-year-old female who has history of lumbar spine pain with radiation down the left leg that has been going on for 2 weeks. Patient states that she was hit in her back with the door because her initial pain. She has seen Dr. Chaidez was placed on ibuprofen which did not help and she was called in a prescription for Ultram. Patient apparently has been confused since that time. She came into [facility] emergency center was found to have acute kidney injury with BUN of 68 and creatinine 1.81 and hyperkalemia with 5.5. AST 113, ALT 53 and alkaline phosphatase 184. CK was 2788 and repeat is 1437. Troponins were mildly elevated. Urinalysis was cloudy , blood moderate, the PVCs 13, nitrate and leukoesterase negative. Urine culture showing no growth at 18 hours and finalize. Blood cultures showing gram -positive bacilli/diphtheria species. White count initially 12.1. Patient has been afebrile. Chest x-ray showed COPD, cardiomegaly, right-sided infiltrate. 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 CAT scan of the brain showed no acute abnormality with atrophic change and chronic white matter ischemic change. Patient was admitted to the selective care unit for rhabdomyolysis, acute kidney injury with hyperkalemia, elevated troponins, transaminitis, lumbar pain and possible UTI. Patient has been seen by orthopedic spine with plan for no surgical intervention and possible consult with Dr. Reyes. CAT scan of the lumbar spine showed old mild L2 compression fracture without change. Severe spinal stenosis at L3-4 and L4-5. She is been seen by cardiology and started on Lasix for heart failure and echocardiogram is in process. Patient continues to have low back pain. Patient is an unreliable historian. Patient's goal was to sit at the bedside. This did not occur because of her pain. Pain consult is pending. Objective - Vital Signs Vital signs: Vital Signs Temp 98.8 F 05/06/16 11:41 Pulse 66 05/06/16 16:00 Resp 16 05/06/16 16:00 BP 197/71 05/06/16 16:00 Pulse Ox 95 05/06/16 16:00 Intake & Output 05/06/16 05/06/16 05/07/16 06:59 18:59 06:59 Intake Total 20 480 Balance 20 480 Weight 48.5 kg Intake: IV 20 0.9 20 Oral 480 Other: Voiding Method Diaper Diaper # Voids 2 1 - Exam Gen: This is an 89-year-old female. She is found in bed and appears to be in no acute distress. Patient is very talkative. HEENT: Head is atraumatic, normocephalic. Pupils equal, round. Sclerae is anicteric. conjunctiva pink. Mucous membranes of the mouth are dry. No thrush noted. NECK: Supple. No JVD. No lymphadenopathy. No thyromegaly. LUNGS: diminished bilaterallyi. No intercostal retractions. HEART: Regular rate and rhythm. No murmur. ABDOMEN: Soft. Bowel sounds are present. No masses. No tenderness. EXTREMITIES: No pedal edema. No calf tenderness.dorsalis pedis +2 bilaterally. Patient does have lumbar pain with straight leg raise worse on the left than right. Tenderness to the lumbar L4 area on the left NEUROLOGICAL: Patient is awake, alert and oriented x2. Cranial nerves 2 through 12 are grossly intact. patient appears to be somewhat unreliable historian. Relates is unable to sit beside the bed because of her pain. Better this evening. Pain medication throughout the day. - Labs CBC & Chem 7: 05/06/16 05:57 05/06/16 05:57 Labs: Abnormal Lab Results - Last 24 Hours (Table) 05/06/16 05/06/16 Range/Units 05:57 05:57 WBC 14.9 H (3.8-10.6) k/uL RBC 3.29 L (3.80-5.40) m/uL Hgb 10.3 L (11.4-16.0) gm/dL Hct 32.8 L (34.0-46.0) % Neutrophils # 13.3 H (1.3-7.7) k/uL Lymphocytes # 0.6 L (1.0-4.8) k/uL BUN 23 H (7-17) mg/dL Total Protein 6.0 L (6.3-8.2) g/dL Albumin 2.5 L (3.5-5.0) g/dL Microbiology - Last 24 Hours (Table) 05/04/16 09:40 Blood Culture - Preliminary Blood No Growth after 48 hours 05/04/16 09:52 Blood Culture - Preliminary Blood No Growth after 48 hours Laboratory Results WBC 14.9 k/uL (3.8-10.6) H 05/06/16 05:57 RBC 3.29 m/uL (3.80-5.40) L 05/06/16 05:57 Hgb 10.3 gm/dL (11.4-16.0) L 05/06/16 05:57 Hct 32.8 % (34.0-46.0) L 05/06/16 05:57 MCV 99.8 fL (80.0-100.0) 05/06/16 05:57 MCH 31.4 pg (25.0-35.0) 05/06/16 05:57 MCHC 31.5 g/dL (31.0-37.0) 05/06/16 05:57 RDW 12.4 % (11.5-15.5) 05/06/16 05:57 Plt Count 436 k/uL (150-450) 05/06/16 05:57 Neutrophils % 90 % 05/06/16 05:57 Lymphocytes % 4 % 05/06/16 05:57 Monocytes % 3 % 05/06/16 05:57 Eosinophils % 1 % 05/06/16 05:57 Basophils % 0 % 05/06/16 05:57 Neutrophils # 13.3 k/uL (1.3-7.7) H 05/06/16 05:57 Lymphocytes # 0.6 k/uL (1.0-4.8) L 05/06/16 05:57 Monocytes # 0.5 k/uL (0-1.0) 05/06/16 05:57 Eosinophils # 0.2 k/uL (0-0.7) 05/06/16 05:57 Basophils # 0.0 k/uL (0-0.2) 05/06/16 05:57 Hypochromasia Slight 05/06/16 05:57 PT 10.6 sec (9.0-12.0) 05/03/16 05:51 INR 1.1 (<1.1) 05/03/16 05:51 APTT 26.3 sec (22.0-30.0) 05/02/16 09:20 Sodium 142 mmol/L (137-145) 05/06/16 05:57 Potassium 4.2 mmol/L (3.5-5.1) 05/06/16 05:57 Chloride 103 mmol/L (98-107) 05/06/16 05:57 Carbon Dioxide 30 mmol/L (22-30) 05/06/16 05:57 Anion Gap 9 mmol/L 05/06/16 05:57 BUN 23 mg/dL (7-17) H 05/06/16 05:57 Creatinine 0.53 mg/dL (0.52-1.04) 05/06/16 05:57 Est GFR (MDRD) Af Amer >60 (>60 ml/min/1.73 sqM) 05/06/16 05:57 Est GFR (MDRD) Non-Af >60 (>60 ml/min/1.73 sqM) 05/06/16 05:57 Glucose 94 mg/dL (74-99) 05/06/16 05:57 Calcium 8.6 mg/dL (8.4-10.2) 05/06/16 05:57 Phosphorus 4.5 mg/dL (2.5-4.5) 05/02/16 09:20 Magnesium 3.1 mg/dL (1.6-2.3) H 05/02/16 09:20 Total Bilirubin 0.4 mg/dL (0.2-1.3) 05/06/16 05:57 AST 35 U/L (14-36) 05/06/16 05:57 ALT 38 U/L (9-52) 05/06/16 05:57 Alkaline Phosphatase 124 U/L (38-126) 05/06/16 05:57 Creatine Kinase 549 U/L (30-135) H 05/04/16 05:50 Total Creatine Kinase 1437 U/L (30-135) H 05/02/16 21:57 CK-MB (CK-2) 9.3 ng/mL (0.0-2.4) H* 05/02/16 21:57 CK-MB (CK-2) Rel Index 0.6 05/02/16 21:57 Troponin I 0.042 ng/mL (0.000-0.034) H* 05/02/16 21:57 NT-Pro-B Natriuret Pep 6130 pg/mL 05/02/16 09:20 Total Protein 6.0 g/dL (6.3-8.2) L 05/06/16 05:57 Albumin 2.5 g/dL (3.5-5.0) L 05/06/16 05:57 Urine Color Yellow 05/02/16 09:20 Urine Appearance Cloudy (Clear) H 05/02/16 09:20 Urine pH 5.5 (5.0-8.0) 05/02/16 09:20 Ur Specific [place] 1.014 (1.001-1.035) 05/02/16 09:20 Urine Protein 1+ (Negative) H 05/02/16 09:20 Urine Glucose (UA) Negative (Negative) 05/02/16 09:20 Urine Ketones Negative (Negative) 05/02/16 09:20 Urine Blood Moderate (Negative) H 05/02/16 09:20 Urine Nitrite Negative (Negative) 05/02/16 09:20 Urine Bilirubin Negative (Negative) 05/02/16 09:20 Urine Urobilinogen <2.0 mg/dL (<2.0) 05/02/16 09:20 Ur Leukocyte Esterase Negative (Negative) 05/02/16 09:20 Urine WBC 13 /hpf (0-5) H 05/02/16 09:20 Urine WBC Clumps Few /hpf (None) H 05/02/16 09:20 Amorphous Sediment Rare /hpf (None) H 05/02/16 09:20 Granular Casts 1 /lpf (0) 05/02/16 09:20 Urine Mucus Rare /hpf (None) H 05/02/16 09:20 Microbiology 05/04/16 09:40 Blood Blood Culture - Preliminary No Growth after 48 hours 05/04/16 09:52 Blood Blood Culture - Preliminary No Growth after 48 hours 05/02/16 09:20 Blood Blood Culture Gram Stain - Final 05/02/16 09:20 Blood Blood Culture - Final Diphtheroid species 05/02/16 09:20 Blood Blood Culture - Final 05/02/16 09:20 Urine,Catheterized Urine Culture - Final Assessment and Plan (1) Bacteremia Narrative/Plan: 89-year-old female who is having a decline of her status over time presents to the hospital because she was profoundly weak. She was having severe pain in her lumbar spine. She is evidence of admission of rhabdomyolysis as well as acute renal failure. She is improving overall except for severe and ongoing pain. There was evidence of possible cultures at admission. There however diphtheroid species and this is a contamination. He will not need further treatment. There is concern about pneumonia she's been treated with levofloxacin and seems to be having some improvement. Her acute renal failure has improved. CT without evidence of abscess. Leukocytosis appears related to current steroid therapy. awaits a pain consult to attempt to improvthe lower placement in rehab. Status: Acute (2) Low back pain Status: Acute (3) Pneumonia Status: Acute (4) Acute kidney injury Status: Acute
[2016-05-07] MEDS: MORPHINE SULFATE 4 MG/ML SYRINGE IV PRN ×3 (03:55→22:06)
[2016-05-07] MEDS: HYDROcodone/APAP 5-325MG 1 EACH TAB PO PRN ×2 (05:31→09:08)
[2016-05-07] MEDS: LEVOTHYROXINE 25 MCG TAB PO SCH (06:21)
[2016-05-07 06:28] LABS: ALT 43 U/L (9-52); AST 34 U/L (14-36); Alkaline Phosphatase 111 U/L (38-126); Anion Gap 5 mmol/L; Blood Urea Nitrogen 22 mg/dL (7-17); Calcium 8.5 mg/dL (8.4-10.2); Carbon Dioxide 33 mmol/L (22-30); Chloride 102 mmol/L (98-107); Glucose 114 mg/dL (74-99); Non-African American GFR(MDRD) >60 (>60 ml/min/1.73 sqM); Potassium 4.1 mmol/L (3.5-5.1); Sodium 140 mmol/L (137-145); Total Bilirubin 0.3 mg/dL (0.2-1.3); Total Protein 5.7 g/dL (6.3-8.2)
[2016-05-07] MEDS: GABAPENTIN 400 MG CAP PO SCH ×2 (06:31→09:12)
[2016-05-07 06:32] LABS: CH 31.1; CHCM 31.5; Eosinophils % (A) 1 %; HDW 2.52; HGB 10.7 gm/dL (11.4-16.0); Hypochromasia Slight; Lymphocytes % (A) 4 %; MCH 31.3 pg (25.0-35.0); MCHC 31.5 g/dL (31.0-37.0); MCV 99.3 fL (80.0-100.0); Mean Platelet Volume 6.8; Monocytes % (A) 4 %; Neutrophils % (A) 89 %; RBC 3.42 m/uL (3.80-5.40); RDW 12.5 % (11.5-15.5); WBC 13.8 k/uL (3.8-10.6); WBC (Perox) 14.16
[2016-05-07 06:33] LABS: Basophils % (A) 0 %; Eosinophils # (A) 0.2 k/uL (0-0.7); Luc # (Auto) 0.18; Luc % (Auto) 1; Lymphocytes # (A) 0.6 k/uL (1.0-4.8); Monocytes # (A) 0.5 k/uL (0-1.0); Neutrophils # (A) 12.3 k/uL (1.3-7.7)
[2016-05-07] MEDS: ENOXAPARIN 40 MG/0.4 ML SYRINGE SQ SCH (09:11)
[2016-05-07] MEDS: ASPIRIN 81 MG CHEW PO SCH (09:12)
[2016-05-07] MEDS: LEVOFLOXACIN 250 MG TAB PO SCH (09:12)
[2016-05-07] MEDS: methylPREDNISolone 4 MG TAB TAPER PO SCH (09:12)
[2016-05-07] MEDS: PANTOPRAZOLE 40 MG TABLET PO SCH (09:12)
[2016-05-07] MEDS: FUROSEMIDE 10 MG/ML 2 ML VIAL IV SCH (09:13)
[2016-05-07] MEDS: DOCUSATE 100 MG CAP PO SCH ×2 (09:13→22:05)
[2016-05-07] MEDS: FLUTICASONE 50MCG/SPRAY NASAL 16GM EA NOSTRIL SCH (09:13)
[2016-05-07] MEDS: MULTIVITAMINS, THERA 1 EACH TAB PO SCH (09:14)
[2016-05-07] MEDS ORDERED: LACTULOSE 20 GM/30 ML CUP PO ONE (10:41)
--- NOTE | 2016-05-07 10:46 | P.PN ---
Subjective Patient is an 89-year-old female who presented to [facility] with multiple medical problems including pneumonia, urinary tract infection, intractable back pain, she was admitted to telemetry floor she was started on IV antibiotic. Patient still complaining of back pain. Patient reports pain service was possibly going to give her on pain injection. She was unable to work with physical therapy yesterday. She denies any chest pain or shortness of breath. Still having some cough but it has improved. She denies a nausea vomiting. Complaining of constipation and no BM 1 week. Objective - Vital Signs Vital signs: Vital Signs Temp 97.1 F L 05/07/16 08:00 Pulse 91 05/07/16 08:00 Resp 19 05/07/16 08:00 BP 107/66 05/07/16 08:00 Pulse Ox 97 05/07/16 08:00 Intake & Output 05/06/16 05/07/16 05/07/16 18:59 06:59 18:59 Intake Total 480 100 Balance 480 100 Weight 44.5 kg Intake: Oral 480 100 Other: Voiding Method Diaper Diaper Diaper # Voids 1 1 - Exam Head normocephalic Neck supple Lungs: Diminished bilaterally no wheezing or crackles noted Heart regular rate and rhythm S1-S2, no rub or gallop Abdomen is soft nontender nondistended positive bowel sounds no hepatosplenomegaly Extremities no edema Neuro alert and orientated to 3 - Labs CBC & Chem 7: 05/07/16 05:56 05/07/16 05:56 Labs: Abnormal Lab Results - Last 24 Hours (Table) 05/07/16 05/07/16 Range/Units 05:56 05:56 WBC 13.8 H (3.8-10.6) k/uL RBC 3.42 L (3.80-5.40) m/uL Hgb 10.7 L (11.4-16.0) gm/dL Plt Count 460 H (150-450) k/uL Neutrophils # 12.3 H (1.3-7.7) k/uL Lymphocytes # 0.6 L (1.0-4.8) k/uL Carbon Dioxide 33 H (22-30) mmol/L BUN 22 H (7-17) mg/dL Creatinine 0.50 L (0.52-1.04) mg/dL Glucose 114 H (74-99) mg/dL Total Protein 5.7 L (6.3-8.2) g/dL Albumin 2.4 L (3.5-5.0) g/dL Microbiology - Last 24 Hours (Table) 05/04/16 09:40 Blood Culture - Preliminary Blood No Growth after 48 hours 05/04/16 09:52 Blood Culture - Preliminary Blood No Growth after 48 hours Assessment and Plan Plan: #1 pneumonia in the right lung: Continue Levaquin #2 urinary tract infection: Urine culture negative continue Levaquin #3 acute hypoxic respiratory failure secondary to pneumonia #4 acute rhabdomyolysis after a fall and prolonged. On the ground #5 acute kidney injury: Possibly related to dehydration and rhabdomyolysis. Improving with IV fluids. #6 slightly elevated troponin level on presentation, without any chest pain or any suggestion of acute coronary syndrome. Evaluated by cardiology #7 acute lower back pain with left lower extremity radiculopathy and difficulty ambulating. Patient evaluated by Dr. White. Computed tomography scan of the lumbar spine showing an old L2 compression fracture. 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 Continue with current pain control. They did add a Medrol Dosepak. Await pain service evaluation #8 acute mental status changes likely metabolic encephalopathy related to the UTI and pneumonia. They have also had a toxic encephalopathy due to Ultram. Now improved. #9 acute CHF diastolic exacerbation: Cardiology switch patient to by mouth Lasix 20 mg twice a day #10 hyperkalemia likely related to the acute kidney injury now resolved. #11 positive blood culture with diphtheroid species: Evaluated by infectious disease. Repeat blood cultures negative. This is likely due to contamination. #12 constipation: Continue stool softener we'll give lactulose Will have patient seen by pain service and anticipate discharge to [facility] tomorrow GI prophylaxis Protonix and DVT prophylaxis Lovenox
[2016-05-07] MEDS: GABAPENTIN 300 MG CAP PO SCH ×3 (13:14→22:05)
--- NOTE | 2016-05-07 13:18 | P.CON ---
Consult Note - . Consult date: 05/07/16 Assessment/Plan:: Patient seen and examined, chart reviewed, past medical/surgical/social/family history reviewed, ALLERGIES reviewed. Ms. Barragan is an 89-year-old female who presented to the hospital with difficulty walking, back pain, left lower extremity pain. She was evaluated by computed tomography scan, which demonstrated severe spinal stenosis at L3-L4, L4 -L5, and moderate spinal stenosis at L5-S1. She has been through rehabilitation before and was also recently seen by Dr. White who did not recommend surgical intervention but instead recommended pain control and conservative therapy with epidural steroid injections. Anesthesia pain service is consulted for this. In the hospital the patient is currently on [place] 5/325 up to every 4 hours as needed for pain along with gabapentin 400 mg 3 times a day. Patient is also considered to have pneumonia and urinary tract infection and is being treated with antibiotics at this time for both. She is also on subcutaneous Lovenox for DVT prophylaxis, which she did receive this morning. Physical exam demonstrates straight leg raise on left lower extremity at 5 degrees and pain to palpation over the lumbar paravertebral area. Ms. Barragan would likely benefit from some epidural steroid injections in the future, but she got her subcutaneous Lovenox only a few hours ago and is also receiving antibiotics for presumed infection, and steroids could potentially worsen this; thus, she is not a candidate for an epidural steroid injection today. I will increase her [place] 5/325 to Percocet 5/325 q4h prn pain and increase her gabapentin from 400 mg to 600 mg TID. If the patient is still in the hospital through the weekend and the hospitalists believe that the benefits of the injection outweigh the risks of potentially worsening her pneumonia and UTI, please hold her Lovenox dose on Wednesday morning and we may potentially be able to do an epidural steroid injection for her on that day itself (which is the next day that an interventional pain physician will be here). Please call with any further questions.
[2016-05-07] MEDS: FUROSEMIDE 20 MG TAB PO SCH (17:43)
[2016-05-07] MEDS: oxyCODONE-APAP 5-325MG 1 EACH TAB PO PRN (17:43)
--- NOTE | 2016-05-07 21:47 | P.PN ---
Subjective Principal diagnosis: Weakness This is an 89-year-old female who has history of lumbar spine pain with radiation down the left leg that has been going on for 2 weeks. Patient states that she was hit in her back with the door because her initial pain. She has seen Dr. Chaidez was placed on ibuprofen which did not help and she was called in a prescription for Ultram. Patient apparently has been confused since that time. She came into [facility] emergency center was found to have acute kidney injury with BUN of 68 and creatinine 1.81 and hyperkalemia with 5.5. AST 113, ALT 53 and alkaline phosphatase 184. CK was 2788 and repeat is 1437. Troponins were mildly elevated. Urinalysis was cloudy , blood moderate, the PVCs 13, nitrate and leukoesterase negative. Urine culture showing no growth at 18 hours and finalize. Blood cultures showing gram -positive bacilli/diphtheria species. White count initially 12.1. Patient has been afebrile. Chest x-ray showed COPD, cardiomegaly, right-sided infiltrate. 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 CAT scan of the brain showed no acute abnormality with atrophic change and chronic white matter ischemic change. Patient was admitted to the selective care unit for rhabdomyolysis, acute kidney injury with hyperkalemia, elevated troponins, transaminitis, lumbar pain and possible UTI. Patient has been seen by orthopedic spine with plan for no surgical intervention and possible consult with Dr. Reyes. CAT scan of the lumbar spine showed old mild L2 compression fracture without change. Severe spinal stenosis at L3-4 and L4-5. She is been seen by cardiology and started on Lasix for heart failure and echocardiogram is in process. Patient continues to have low back pain. Patient is an unreliable historian. Patient's goal was to sit at the bedside. This did occur today, she did see pain management. Objective - Vital Signs Vital signs: Vital Signs Temp 98.1 F 05/07/16 20:17 Pulse 93 05/07/16 16:21 Resp 14 05/07/16 20:20 BP 97/61 05/07/16 20:17 Pulse Ox 95 05/07/16 12:00 Intake & Output 03/05/07/16 05/08/16 06:59 18:59 06:59 Intake Total 300 Balance 300 Weight 44.5 kg 44.5 kg Intake: Oral 300 Other: Voiding Method Diaper Diaper Diaper # Voids 1 1 - Exam Gen: This is an 89-year-old female. She is found in bed and appears to be in no acute distress. Patient is very talkative. HEENT: Head is atraumatic, normocephalic. Pupils equal, round. Sclerae is anicteric. conjunctiva pink. Mucous membranes of the mouth are dry. No thrush noted. NECK: Supple. No JVD. No lymphadenopathy. No thyromegaly. LUNGS: diminished bilaterallyi. No intercostal retractions. HEART: Regular rate and rhythm. No murmur. ABDOMEN: Soft. Bowel sounds are present. No masses. No tenderness. EXTREMITIES: No pedal edema. No calf tenderness.dorsalis pedis +2 bilaterally. Patient does have lumbar pain with straight leg raise worse on the left than right. Tenderness to the lumbar L4 area on the left NEUROLOGICAL: Patient is awake, alert and oriented x2. Cranial nerves 2 through 12 are grossly intact. patient appears to be somewhat unreliable historian. Relates is unable to sit beside the bed because of her pain. Better this evening. Pain medication throughout the day. - Labs CBC & Chem 7: 05/07/16 05:56 05/07/16 05:56 Labs: Abnormal Lab Results - Last 24 Hours (Table) 05/07/16 05/07/16 Range/Units 05:56 05:56 WBC 13.8 H (3.8-10.6) k/uL RBC 3.42 L (3.80-5.40) m/uL Hgb 10.7 L (11.4-16.0) gm/dL Plt Count 460 H (150-450) k/uL Neutrophils # 12.3 H (1.3-7.7) k/uL Lymphocytes # 0.6 L (1.0-4.8) k/uL Carbon Dioxide 33 H (22-30) mmol/L BUN 22 H (7-17) mg/dL Creatinine 0.50 L (0.52-1.04) mg/dL Glucose 114 H (74-99) mg/dL Total Protein 5.7 L (6.3-8.2) g/dL Albumin 2.4 L (3.5-5.0) g/dL Microbiology - Last 24 Hours (Table) 05/07/16 14:47 Gram Stain - Preliminary Sputum Sputum Culture - Preliminary 05/04/16 09:40 Blood Culture - Preliminary Blood No Growth after 72 hours 05/04/16 09:52 Blood Culture - Preliminary Blood No Growth after 72 hours Laboratory Results WBC 13.8 k/uL (3.8-10.6) H 05/07/16 05:56 RBC 3.42 m/uL (3.80-5.40) L 05/07/16 05:56 Hgb 10.7 gm/dL (11.4-16.0) L 05/07/16 05:56 Hct 34.0 % (34.0-46.0) 05/07/16 05:56 MCV 99.3 fL (80.0-100.0) 05/07/16 05:56 MCH 31.3 pg (25.0-35.0) 05/07/16 05:56 MCHC 31.5 g/dL (31.0-37.0) 05/07/16 05:56 RDW 12.5 % (11.5-15.5) 05/07/16 05:56 Plt Count 460 k/uL (150-450) H 05/07/16 05:56 Neutrophils % 89 % 05/07/16 05:56 Lymphocytes % 4 % 05/07/16 05:56 Monocytes % 4 % 05/07/16 05:56 Eosinophils % 1 % 05/07/16 05:56 Basophils % 0 % 05/07/16 05:56 Neutrophils # 12.3 k/uL (1.3-7.7) H 05/07/16 05:56 Lymphocytes # 0.6 k/uL (1.0-4.8) L 05/07/16 05:56 Monocytes # 0.5 k/uL (0-1.0) 05/07/16 05:56 Eosinophils # 0.2 k/uL (0-0.7) 05/07/16 05:56 Basophils # 0.0 k/uL (0-0.2) 05/07/16 05:56 Hypochromasia Slight 05/07/16 05:56 PT 10.6 sec (9.0-12.0) 05/03/16 05:51 INR 1.1 (<1.1) 05/03/16 05:51 APTT 26.3 sec (22.0-30.0) 05/02/16 09:20 Sodium 140 mmol/L (137-145) 05/07/16 05:56 Potassium 4.1 mmol/L (3.5-5.1) 05/07/16 05:56 Chloride 102 mmol/L (98-107) 05/07/16 05:56 Carbon Dioxide 33 mmol/L (22-30) H 05/07/16 05:56 Anion Gap 5 mmol/L 05/07/16 05:56 BUN 22 mg/dL (7-17) H 05/07/16 05:56 Creatinine 0.50 mg/dL (0.52-1.04) L 05/07/16 05:56 Est GFR (MDRD) Af Amer >60 (>60 ml/min/1.73 sqM) 05/07/16 05:56 Est GFR (MDRD) Non-Af >60 (>60 ml/min/1.73 sqM) 05/07/16 05:56 Glucose 114 mg/dL (74-99) H 05/07/16 05:56 Calcium 8.5 mg/dL (8.4-10.2) 05/07/16 05:56 Phosphorus 4.5 mg/dL (2.5-4.5) 05/02/16 09:20 Magnesium 3.1 mg/dL (1.6-2.3) H 05/02/16 09:20 Total Bilirubin 0.3 mg/dL (0.2-1.3) 05/07/16 05:56 AST 34 U/L (14-36) 05/07/16 05:56 ALT 43 U/L (9-52) 05/07/16 05:56 Alkaline Phosphatase 111 U/L (38-126) 05/07/16 05:56 Creatine Kinase 549 U/L (30-135) H 05/04/16 05:50 Total Creatine Kinase 1437 U/L (30-135) H 05/02/16 21:57 CK-MB (CK-2) 9.3 ng/mL (0.0-2.4) H* 05/02/16 21:57 CK-MB (CK-2) Rel Index 0.6 05/02/16 21:57 Troponin I 0.042 ng/mL (0.000-0.034) H* 05/02/16 21:57 NT-Pro-B Natriuret Pep 6130 pg/mL 05/02/16 09:20 Total Protein 5.7 g/dL (6.3-8.2) L 05/07/16 05:56 Albumin 2.4 g/dL (3.5-5.0) L 05/07/16 05:56 Urine Color Yellow 05/02/16 09:20 Urine Appearance Cloudy (Clear) H 05/02/16 09:20 Urine pH 5.5 (5.0-8.0) 05/02/16 09:20 Ur Specific [place] 1.014 (1.001-1.035) 05/02/16 09:20 Urine Protein 1+ (Negative) H 05/02/16 09:20 Urine Glucose (UA) Negative (Negative) 05/02/16 09:20 Urine Ketones Negative (Negative) 05/02/16 09:20 Urine Blood Moderate (Negative) H 05/02/16 09:20 Urine Nitrite Negative (Negative) 05/02/16 09:20 Urine Bilirubin Negative (Negative) 05/02/16 09:20 Urine Urobilinogen <2.0 mg/dL (<2.0) 05/02/16 09:20 Ur Leukocyte Esterase Negative (Negative) 05/02/16 09:20 Urine WBC 13 /hpf (0-5) H 05/02/16 09:20 Urine WBC Clumps Few /hpf (None) H 05/02/16 09:20 Amorphous Sediment Rare /hpf (None) H 05/02/16 09:20 Granular Casts 1 /lpf (0) 05/02/16 09:20 Urine Mucus Rare /hpf (None) H 05/02/16 09:20 Microbiology 05/07/16 14:47 Sputum Gram Stain - Preliminary 05/07/16 14:47 Sputum Sputum Culture - Preliminary 05/04/16 09:40 Blood Blood Culture - Preliminary No Growth after 72 hours 05/04/16 09:52 Blood Blood Culture - Preliminary No Growth after 72 hours 05/02/16 09:20 Blood Blood Culture Gram Stain - Final 05/02/16 09:20 Blood Blood Culture - Final Diphtheroid species 05/02/16 09:20 Blood Blood Culture - Final 05/02/16 09:20 Urine,Catheterized Urine Culture - Final Assessment and Plan (1) Bacteremia Narrative/Plan: 89-year-old female who is having a decline of her status over time presents to the hospital because she was profoundly weak. She was having severe pain in her lumbar spine. She is evidence of admission of rhabdomyolysis as well as acute renal failure. She is improving overall except for severe and ongoing pain. There was evidence of possible cultures at admission. There however diphtheroid species and this is a contamination. It will not need further treatment. There is concern about pneumonia she's been treated with levofloxacin and seems to be having some improvement. Her acute renal failure has improved. CT without evidence of abscess. Leukocytosis appears related to current steroid therapy. pain consult to attempt to improve the lower back pain and allow placement in rehab. Status: Acute (2) Low back pain Status: Acute (3) Pneumonia Status: Acute (4) Acute kidney injury Status: Acute
[2016-05-08] MEDS: oxyCODONE-APAP 5-325MG 1 EACH TAB PO PRN ×6 (00:42→22:23)
[2016-05-08 06:23] LABS: Basophils % (A) 0 %; CH 31.3; CHCM 31.6; Eosinophils # (A) 0.3 k/uL (0-0.7); Eosinophils % (A) 2 %; HCT 32.7 % (34.0-46.0); HGB 10.4 gm/dL (11.4-16.0); Hypochromasia Slight; Luc % (Auto) 1; Lymphocytes # (A) 0.7 k/uL (1.0-4.8); Lymphocytes % (A) 4 %; MCH 31.5 pg (25.0-35.0); MCHC 31.8 g/dL (31.0-37.0); MCV 99.2 fL (80.0-100.0); Monocytes # (A) 0.4 k/uL (0-1.0); Monocytes % (A) 3 %; Neutrophils # (A) 14.3 k/uL (1.3-7.7); Neutrophils % (A) 90 %; RBC 3.29 m/uL (3.80-5.40); RDW 12.5 % (11.5-15.5); WBC 15.9 k/uL (3.8-10.6)
[2016-05-08 06:34] LABS: ALT 43 U/L (9-52); AST 37 U/L (14-36); Alkaline Phosphatase 114 U/L (38-126); Anion Gap 5 mmol/L; Blood Urea Nitrogen 23 mg/dL (7-17); Calcium 8.5 mg/dL (8.4-10.2); Carbon Dioxide 32 mmol/L (22-30); Chloride 101 mmol/L (98-107); Glucose 101 mg/dL (74-99); Non-African American GFR(MDRD) >60 (>60 ml/min/1.73 sqM); Potassium 4.2 mmol/L (3.5-5.1); Sodium 138 mmol/L (137-145); Total Bilirubin 0.3 mg/dL (0.2-1.3); Total Protein 5.7 g/dL (6.3-8.2)
[2016-05-08] MEDS: LEVOTHYROXINE 25 MCG TAB PO SCH (06:44)
[2016-05-08] MEDS: MORPHINE SULFATE 4 MG/ML SYRINGE IV PRN ×2 (06:49→15:29)
[2016-05-08] MEDS: GABAPENTIN 300 MG CAP PO SCH ×4 (09:14→22:23)
[2016-05-08] MEDS: ASPIRIN 81 MG CHEW PO SCH (09:14)
[2016-05-08] MEDS: PANTOPRAZOLE 40 MG TABLET PO SCH (09:14)
[2016-05-08] MEDS: methylPREDNISolone 4 MG TAB TAPER PO SCH (09:14)
[2016-05-08] MEDS: DOCUSATE 100 MG CAP PO SCH ×3 (09:14→22:23)
[2016-05-08] MEDS: ENOXAPARIN 40 MG/0.4 ML SYRINGE SQ SCH (09:14)
[2016-05-08] MEDS: LEVOFLOXACIN 500 MG TAB PO SCH (09:14)
[2016-05-08] MEDS: FUROSEMIDE 20 MG TAB PO SCH ×2 (09:14→17:47)
[2016-05-08] MEDS: FLUTICASONE 50MCG/SPRAY NASAL 16GM EA NOSTRIL SCH (09:15)
[2016-05-08] MEDS ORDERED: SODIUM CHLORIDE 0.9% 500 ML IV ONE (11:30)
[2016-05-08] MEDS: MULTIVITAMINS, THERA 1 EACH TAB PO SCH (12:52)
[2016-05-08] MEDS ORDERED: LACTULOSE 20 GM/30 ML CUP PO ONE (13:45)
--- NOTE | 2016-05-08 13:48 | P.PN ---
Subjective Principal diagnosis: Pneumonia Patient is an 89-year-old female who presented to [facility] with multiple medical problems including pneumonia, urinary tract infection, intractable back pain, she was admitted to telemetry floor she was started on IV antibiotic, patient had some minimal improvement since yesterday. Objective - Vital Signs Vital signs: Vital Signs Temp 97 F L 05/08/16 08:00 Pulse 109 H 05/08/16 08:00 Resp 16 05/08/16 08:00 BP 101/50 05/08/16 08:00 Pulse Ox 97 05/08/16 08:00 Intake & Output 05/07/16 05/08/16 05/08/16 18:59 06:59 18:59 Intake Total 300 120 Balance 300 120 Weight 44.5 kg 45 kg Intake: Oral 300 120 Other: Voiding Method Diaper Diaper # Voids 1 1 # Bowel Movements 0 - Exam In general patient is alert and oriented 3 in no apparent distress HEENT head normocephalic and atraumatic Neck is supple no JVD no goiter no lymphadenopathy Chest exam reveals coarse crackles in both lung vuong no wheezing Cardiac exam reveals regular heart sounds no gallops no murmurs Abdomen is soft nontender no organomegaly Extremity exam reveals no edema no cyanosis or clubbing - Labs CBC & Chem 7: 05/08/16 05:54 05/08/16 05:54 Labs: Abnormal Lab Results - Last 24 Hours (Table) 05/08/16 05/08/16 Range/Units 05:54 05:54 WBC 15.9 H (3.8-10.6) k/uL RBC 3.29 L (3.80-5.40) m/uL Hgb 10.4 L (11.4-16.0) gm/dL Hct 32.7 L (34.0-46.0) % Plt Count 472 H (150-450) k/uL Neutrophils # 14.3 H (1.3-7.7) k/uL Lymphocytes # 0.7 L (1.0-4.8) k/uL Carbon Dioxide 32 H (22-30) mmol/L BUN 23 H (7-17) mg/dL Glucose 101 H (74-99) mg/dL AST 37 H (14-36) U/L Total Protein 5.7 L (6.3-8.2) g/dL Albumin 2.5 L (3.5-5.0) g/dL Microbiology - Last 24 Hours (Table) 05/04/16 09:40 Blood Culture - Preliminary Blood No Growth after 96 hours 05/04/16 09:52 Blood Culture - Preliminary Blood No Growth after 96 hours 05/07/16 14:47 Gram Stain - Final Sputum Sputum Culture - Final Assessment and Plan Plan: #1 right lung infiltrate suggestive of pneumonia #2 urinary tract infection #3 acute hypoxic respiratory failure #4 acute rhabdomyolysis #5 acute kidney injury, improving #6 slightly elevated troponin level on presentation, without any chest pain or any suggestion of acute coronary syndrome #7 acute intractable back pain with physical debility with inability to sit or stand #8 positive blood culture for dephterioid species possibly a contaminant #9 intractable back pain consult anesthesia service for pain management #10 episode of hypotension today, patient received IV fluid she is stable at this At this time continue with current medications sputum sample for culture and Gram stain Consult physical therapy and occupational therapy
--- NOTE | 2016-05-08 23:12 | P.PN ---
Subjective Principal diagnosis: Weakness This is an 89-year-old female who has history of lumbar spine pain with radiation down the left leg that has been going on for 2 weeks. Patient states that she was hit in her back with the door because her initial pain. She has seen Dr. Chaidez was placed on ibuprofen which did not help and she was called in a prescription for Ultram. Patient apparently has been confused since that time. She came into [facility] emergency center was found to have acute kidney injury with BUN of 68 and creatinine 1.81 and hyperkalemia with 5.5. AST 113, ALT 53 and alkaline phosphatase 184. CK was 2788 and repeat is 1437. Troponins were mildly elevated. Urinalysis was cloudy , blood moderate, the PVCs 13, nitrate and leukoesterase negative. Urine culture showing no growth at 18 hours and finalize. Blood cultures showing gram -positive bacilli/diphtheria species. White count initially 12.1. Patient has been afebrile. Chest x-ray showed COPD, cardiomegaly, right-sided infiltrate. 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 CAT scan of the brain showed no acute abnormality with atrophic change and chronic white matter ischemic change. Patient was admitted to the selective care unit for rhabdomyolysis, acute kidney injury with hyperkalemia, elevated troponins, transaminitis, lumbar pain and possible UTI. Patient has been seen by orthopedic spine with plan for no surgical intervention and possible consult with Dr. Reyes. CAT scan of the lumbar spine showed old mild L2 compression fracture without change. Severe spinal stenosis at L3-4 and L4-5. She is been seen by cardiology and started on Lasix for heart failure and echocardiogram is in process. Patient continues to have low back pain. Patient is an unreliable historian. Patient's goal was to sit at the bedside. This did occur today, she did see pain management.but is still having severe pain and is not able to ambulate Objective - Vital Signs Vital signs: Vital Signs Temp 97.6 F 05/08/16 20:30 Pulse 109 H 05/08/16 21:42 Resp 15 05/08/16 20:30 BP 107/67 05/08/16 21:42 Pulse Ox 97 05/08/16 11:00 Intake & Output 05/08/16 05/08/16 05/09/16 06:59 18:59 06:59 Intake Total 830 Balance 830 Weight 45 kg Intake: Intake, IV Titration 500 Amount Sodium Chloride 0.9% 500 500 ml @ 999 mls/hr IV .Q31M ONE Rx#:[id number] Oral 330 Other: Voiding Method Diaper Diaper # Voids 1 2 # Bowel Movements 0 - Exam Gen: This is an 89-year-old female. She is found in bed and appears to be in no acute distress. Patient is very talkative. HEENT: Head is atraumatic, normocephalic. Pupils equal, round. Sclerae is anicteric. conjunctiva pink. Mucous membranes of the mouth are dry. No thrush noted. NECK: Supple. No JVD. No lymphadenopathy. No thyromegaly. LUNGS: diminished bilaterallyi. No intercostal retractions. HEART: Regular rate and rhythm. No murmur. ABDOMEN: Soft. Bowel sounds are present. No masses. No tenderness. EXTREMITIES: No pedal edema. No calf tenderness.dorsalis pedis +2 bilaterally. Patient does have lumbar pain with straight leg raise worse on the left than right. Tenderness to the lumbar L4 area on the left NEUROLOGICAL: Patient is awake, alert and oriented x2. Cranial nerves 2 through 12 are grossly intact. patient appears to be somewhat unreliable historian. Relates is unable to sit beside the bed because of her pain. Better this evening. Pain medication throughout the day. - Labs CBC & Chem 7: 05/08/16 05:54 05/08/16 05:54 Labs: Abnormal Lab Results - Last 24 Hours (Table) 05/08/16 05/08/16 Range/Units 05:54 05:54 WBC 15.9 H (3.8-10.6) k/uL RBC 3.29 L (3.80-5.40) m/uL Hgb 10.4 L (11.4-16.0) gm/dL Hct 32.7 L (34.0-46.0) % Plt Count 472 H (150-450) k/uL Neutrophils # 14.3 H (1.3-7.7) k/uL Lymphocytes # 0.7 L (1.0-4.8) k/uL Carbon Dioxide 32 H (22-30) mmol/L BUN 23 H (7-17) mg/dL Glucose 101 H (74-99) mg/dL AST 37 H (14-36) U/L Total Protein 5.7 L (6.3-8.2) g/dL Albumin 2.5 L (3.5-5.0) g/dL Microbiology - Last 24 Hours (Table) 05/04/16 09:40 Blood Culture - Preliminary Blood No Growth after 96 hours 05/04/16 09:52 Blood Culture - Preliminary Blood No Growth after 96 hours 05/07/16 14:47 Gram Stain - Final Sputum Sputum Culture - Final Laboratory Results WBC 15.9 k/uL (3.8-10.6) H 05/08/16 05:54 RBC 3.29 m/uL (3.80-5.40) L 05/08/16 05:54 Hgb 10.4 gm/dL (11.4-16.0) L 05/08/16 05:54 Hct 32.7 % (34.0-46.0) L 05/08/16 05:54 MCV 99.2 fL (80.0-100.0) 05/08/16 05:54 MCH 31.5 pg (25.0-35.0) 05/08/16 05:54 MCHC 31.8 g/dL (31.0-37.0) 05/08/16 05:54 RDW 12.5 % (11.5-15.5) 05/08/16 05:54 Plt Count 472 k/uL (150-450) H 05/08/16 05:54 Neutrophils % 90 % 05/08/16 05:54 Lymphocytes % 4 % 05/08/16 05:54 Monocytes % 3 % 05/08/16 05:54 Eosinophils % 2 % 05/08/16 05:54 Basophils % 0 % 05/08/16 05:54 Neutrophils # 14.3 k/uL (1.3-7.7) H 05/08/16 05:54 Lymphocytes # 0.7 k/uL (1.0-4.8) L 05/08/16 05:54 Monocytes # 0.4 k/uL (0-1.0) 05/08/16 05:54 Eosinophils # 0.3 k/uL (0-0.7) 05/08/16 05:54 Basophils # 0.0 k/uL (0-0.2) 05/08/16 05:54 Hypochromasia Slight 05/08/16 05:54 PT 10.6 sec (9.0-12.0) 05/03/16 05:51 INR 1.1 (<1.1) 05/03/16 05:51 APTT 26.3 sec (22.0-30.0) 05/02/16 09:20 Sodium 138 mmol/L (137-145) 05/08/16 05:54 Potassium 4.2 mmol/L (3.5-5.1) 05/08/16 05:54 Chloride 101 mmol/L (98-107) 05/08/16 05:54 Carbon Dioxide 32 mmol/L (22-30) H 05/08/16 05:54 Anion Gap 5 mmol/L 05/08/16 05:54 BUN 23 mg/dL (7-17) H 05/08/16 05:54 Creatinine 0.60 mg/dL (0.52-1.04) 05/08/16 05:54 Est GFR (MDRD) Af Amer >60 (>60 ml/min/1.73 sqM) 05/08/16 05:54 Est GFR (MDRD) Non-Af >60 (>60 ml/min/1.73 sqM) 05/08/16 05:54 Glucose 101 mg/dL (74-99) H 05/08/16 05:54 Plasma Lactic Acid [place] 1.6 mmol/L (0.7-2.0) 05/08/16 11:51 Calcium 8.5 mg/dL (8.4-10.2) 05/08/16 05:54 Phosphorus 4.5 mg/dL (2.5-4.5) 05/02/16 09:20 Magnesium 3.1 mg/dL (1.6-2.3) H 05/02/16 09:20 Total Bilirubin 0.3 mg/dL (0.2-1.3) 05/08/16 05:54 AST 37 U/L (14-36) H 05/08/16 05:54 ALT 43 U/L (9-52) 05/08/16 05:54 Alkaline Phosphatase 114 U/L (38-126) 05/08/16 05:54 Creatine Kinase 549 U/L (30-135) H 05/04/16 05:50 Total Creatine Kinase 1437 U/L (30-135) H 05/02/16 21:57 CK-MB (CK-2) 9.3 ng/mL (0.0-2.4) H* 05/02/16 21:57 CK-MB (CK-2) Rel Index 0.6 05/02/16 21:57 Troponin I 0.042 ng/mL (0.000-0.034) H* 05/02/16 21:57 NT-Pro-B Natriuret Pep 6130 pg/mL 05/02/16 09:20 Total Protein 5.7 g/dL (6.3-8.2) L 05/08/16 05:54 Albumin 2.5 g/dL (3.5-5.0) L 05/08/16 05:54 Urine Color Yellow 05/02/16 09:20 Urine Appearance Cloudy (Clear) H 05/02/16 09:20 Urine pH 5.5 (5.0-8.0) 05/02/16 09:20 Ur Specific [place] 1.014 (1.001-1.035) 05/02/16 09:20 Urine Protein 1+ (Negative) H 05/02/16 09:20 Urine Glucose (UA) Negative (Negative) 05/02/16 09:20 Urine Ketones Negative (Negative) 05/02/16 09:20 Urine Blood Moderate (Negative) H 05/02/16 09:20 Urine Nitrite Negative (Negative) 05/02/16 09:20 Urine Bilirubin Negative (Negative) 05/02/16 09:20 Urine Urobilinogen <2.0 mg/dL (<2.0) 05/02/16 09:20 Ur Leukocyte Esterase Negative (Negative) 05/02/16 09:20 Urine WBC 13 /hpf (0-5) H 05/02/16 09:20 Urine WBC Clumps Few /hpf (None) H 05/02/16 09:20 Amorphous Sediment Rare /hpf (None) H 05/02/16 09:20 Granular Casts 1 /lpf (0) 05/02/16 09:20 Urine Mucus Rare /hpf (None) H 05/02/16 09:20 Microbiology 05/04/16 09:40 Blood Blood Culture - Preliminary No Growth after 96 hours 05/04/16 09:52 Blood Blood Culture - Preliminary No Growth after 96 hours 05/07/16 14:47 Sputum Gram Stain - Final 05/07/16 14:47 Sputum Sputum Culture - Final 05/02/16 09:20 Blood Blood Culture Gram Stain - Final 05/02/16 09:20 Blood Blood Culture - Final Diphtheroid species 05/02/16 09:20 Blood Blood Culture - Final 05/02/16 09:20 Urine,Catheterized Urine Culture - Final Assessment and Plan (1) Bacteremia Narrative/Plan: 89-year-old female who is having a decline of her status over time presents to the hospital because she was profoundly weak. She was having severe pain in her lumbar spine. She is evidence of admission of rhabdomyolysis as well as acute renal failure. She is improving overall except for severe and ongoing pain. There was evidence of possible cultures at admission. There however diphtheroid species and this is a contamination. It will not need further treatment. There is concern about pneumonia she's been treated with levofloxacin and seems to be having some improvement. Her acute renal failure has improved. CT without evidence of abscess. Leukocytosis appears related to current steroid therapy. pain consult to attempt to improve the lower back pain and allow placement in rehab. Status: Acute (2) Low back pain Status: Acute (3) Pneumonia Status: Acute (4) Acute kidney injury Status: Acute
[2016-05-09] MEDS: oxyCODONE-APAP 5-325MG 1 EACH TAB PO PRN ×4 (04:57→19:56)
[2016-05-09 06:42] LABS: Basophils # (A) 0.1 k/uL (0-0.2); Basophils % (A) 0 %; CHCM 31.1; Eosinophils # (A) 0.2 k/uL (0-0.7); Eosinophils % (A) 1 %; HCT 31.9 % (34.0-46.0); HDW 2.44; HGB 10.1 gm/dL (11.4-16.0); Hypochromasia Slight; Luc # (Auto) 0.15; Luc % (Auto) 1; Lymphocytes # (A) 0.6 k/uL (1.0-4.8); Lymphocytes % (A) 3 %; MCH 31.6 pg (25.0-35.0); MCHC 31.6 g/dL (31.0-37.0); MCV 99.9 fL (80.0-100.0); Monocytes # (A) 0.4 k/uL (0-1.0); Monocytes % (A) 2 %; Neutrophils # (A) 19.8 k/uL (1.3-7.7); Neutrophils % (A) 94 %; RDW 12.7 % (11.5-15.5); WBC 21.1 k/uL (3.8-10.6); WBC (Perox) 22.21
[2016-05-09] MEDS: LEVOTHYROXINE 25 MCG TAB PO SCH (06:55)
[2016-05-09 07:05] LABS: Calcium 8.5 mg/dL (8.4-10.2); Potassium 4.4 mmol/L (3.5-5.1); Total Bilirubin 0.3 mg/dL (0.2-1.3); Total Protein 5.7 g/dL (6.3-8.2)
[2016-05-09] MEDS: ENOXAPARIN 40 MG/0.4 ML SYRINGE SQ SCH (08:49)
[2016-05-09] MEDS: DOCUSATE 100 MG CAP PO SCH ×2 (08:49→22:06)
[2016-05-09] MEDS: FLUTICASONE 50MCG/SPRAY NASAL 16GM EA NOSTRIL SCH (08:49)
[2016-05-09] MEDS: ASPIRIN 81 MG CHEW PO SCH (08:49)
[2016-05-09] MEDS: PANTOPRAZOLE 40 MG TABLET PO SCH (08:50)
[2016-05-09] MEDS: GABAPENTIN 300 MG CAP PO SCH ×3 (08:50→22:07)
[2016-05-09] MEDS: LEVOFLOXACIN 500 MG TAB PO SCH (08:50)
[2016-05-09] MEDS: methylPREDNISolone 4 MG TAB TAPER PO SCH (08:50)
[2016-05-09] MEDS ORDERED: NON-FORMULARY DRUG (Alendronate Sodium [Fosamax] 70 MG) PO SCH (09:00)
[2016-05-09] MEDS: MULTIVITAMINS, THERA 1 EACH TAB PO SCH (11:41)
--- NOTE | 2016-05-09 12:40 | P.PN ---
Subjective Principal diagnosis: Pneumonia Patient is an 89-year-old female who presented to [facility] with multiple medical problems including pneumonia, urinary tract infection, intractable back pain, she was admitted to telemetry floor she was started on IV antibiotic, patient had some minimal improvement since yesterday. Objective - Vital Signs Vital signs: Vital Signs Temp 97.0 F L 05/09/16 11:31 Pulse 95 05/09/16 11:31 Resp 18 05/09/16 11:31 BP 89/50 05/09/16 11:31 Pulse Ox 97 05/09/16 11:31 Intake & Output 05/08/16 05/09/16 05/09/16 18:59 06:59 18:59 Intake Total 830 200 180 Balance 830 200 180 Weight 46.5 kg Intake: Intake, IV Titration 500 Amount Sodium Chloride 0.9% 500 500 ml @ 999 mls/hr IV .Q31M ONE Rx#:[id number] Oral 330 200 180 Other: Voiding Method Diaper Diaper Diaper # Voids 2 1 # Bowel Movements 0 - Exam In general patient is alert and oriented 3 in no apparent distress HEENT head normocephalic and atraumatic Neck is supple no JVD no goiter no lymphadenopathy Chest exam reveals coarse crackles in both lung vuong no wheezing Cardiac exam reveals regular heart sounds no gallops no murmurs Abdomen is soft nontender no organomegaly Extremity exam reveals no edema no cyanosis or clubbing - Labs CBC & Chem 7: 05/09/16 06:16 05/09/16 06:16 Labs: Abnormal Lab Results - Last 24 Hours (Table) 05/09/16 05/09/16 Range/Units 06:16 06:16 WBC 21.1 H (3.8-10.6) k/uL RBC 3.20 L (3.80-5.40) m/uL Hgb 10.1 L (11.4-16.0) gm/dL Hct 31.9 L (34.0-46.0) % Plt Count 478 H (150-450) k/uL Neutrophils # 19.8 H (1.3-7.7) k/uL Lymphocytes # 0.6 L (1.0-4.8) k/uL Carbon Dioxide 31 H (22-30) mmol/L BUN 33 H (7-17) mg/dL Creatinine 1.10 H (0.52-1.04) mg/dL Glucose 105 H (74-99) mg/dL Total Protein 5.7 L (6.3-8.2) g/dL Albumin 2.5 L (3.5-5.0) g/dL Microbiology - Last 24 Hours (Table) 05/04/16 09:40 Blood Culture - Preliminary Blood No Growth after 120 hours 05/04/16 09:52 Blood Culture - Preliminary Blood No Growth after 120 hours Assessment and Plan Plan: #1 right lung infiltrate suggestive of pneumonia #2 urinary tract infection #3 acute hypoxic respiratory failure #4 acute rhabdomyolysis #5 acute kidney injury, improving #6 slightly elevated troponin level on presentation, without any chest pain or any suggestion of acute coronary syndrome #7 acute intractable back pain with physical debility with inability to sit or stand #8 positive blood culture for dephterioid species possibly a contaminant #9 intractable back pain consult anesthesia service for pain management #10 episode of hypotension today, patient received IV fluid she is stable #11 constipation patient received lactulose yesterday without any results she will be given Fleet enema today At this time continue with current medications sputum sample for culture and Gram stain Consult physical therapy and occupational therapy
[2016-05-09] MEDS: NA PHOS,M-B/NA PHOS,DI-BA 133 ML ENEMA RECTAL ONE ×3 (15:37→17:00)
[2016-05-09] MEDS: FUROSEMIDE 20 MG TAB PO SCH (17:10)
--- NOTE | 2016-05-09 18:23 | P.PN ---
Subjective Principal diagnosis: Weakness This is an 89-year-old female who has history of lumbar spine pain with radiation down the left leg that has been going on for 2 weeks. Patient states that she was hit in her back with the door because her initial pain. She has seen Dr. Chaidez was placed on ibuprofen which did not help and she was called in a prescription for Ultram. Patient apparently has been confused since that time. She came into [facility] emergency center was found to have acute kidney injury with BUN of 68 and creatinine 1.81 and hyperkalemia with 5.5. AST 113, ALT 53 and alkaline phosphatase 184. CK was 2788 and repeat is 1437. Troponins were mildly elevated. Urinalysis was cloudy , blood moderate, the PVCs 13, nitrate and leukoesterase negative. Urine culture showing no growth at 18 hours and finalize. Blood cultures showing gram -positive bacilli/diphtheria species. White count initially 12.1. Patient has been afebrile. Chest x-ray showed COPD, cardiomegaly, right-sided infiltrate. 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 CAT scan of the brain showed no acute abnormality with atrophic change and chronic white matter ischemic change. Patient was admitted to the selective care unit for rhabdomyolysis, acute kidney injury with hyperkalemia, elevated troponins, transaminitis, lumbar pain and possible UTI. Patient has been seen by orthopedic spine with plan for no surgical intervention and possible consult with Dr. Reyes. CAT scan of the lumbar spine showed old mild L2 compression fracture without change. Severe spinal stenosis at L3-4 and L4-5. She is been seen by cardiology and started on Lasix for heart failure and echocardiogram is in process. Patient continues to have low back pain. Patient is an unreliable historian. Patient's goal was to sit at the bedside. This did occur today, she did see pain management.but is still having severe pain and is not able to ambulate Objective - Vital Signs Vital signs: Vital Signs Temp 97.2 F L 05/09/16 15:46 Pulse 96 05/09/16 15:46 Resp 18 05/09/16 15:46 BP 96/53 05/09/16 15:46 Pulse Ox 96 05/09/16 15:46 Intake & Output 05/08/16 05/09/16 05/09/16 18:59 06:59 18:59 Intake Total 830 200 300 Balance 830 200 300 Weight 46.5 kg Intake: Intake, IV Titration 500 Amount Sodium Chloride 0.9% 500 500 ml @ 999 mls/hr IV .Q31M ONE Rx#:[id number] Oral 330 200 300 Other: Voiding Method Diaper Diaper Diaper # Voids 2 1 # Bowel Movements 0 - Exam Gen: This is an 89-year-old female. She is found in bed and appears to be in no acute distress. Patient is very talkative. HEENT: Head is atraumatic, normocephalic. Pupils equal, round. Sclerae is anicteric. conjunctiva pink. Mucous membranes of the mouth are dry. No thrush noted. NECK: Supple. No JVD. No lymphadenopathy. No thyromegaly. LUNGS: diminished bilaterallyi. No intercostal retractions. HEART: Regular rate and rhythm. No murmur. ABDOMEN: Soft. Bowel sounds are present. No masses. No tenderness. EXTREMITIES: No pedal edema. No calf tenderness.dorsalis pedis +2 bilaterally. Patient does have lumbar pain with straight leg raise worse on the left than right. Tenderness to the lumbar L4 area on the left NEUROLOGICAL: Patient is awake, alert and oriented x2. Cranial nerves 2 through 12 are grossly intact. patient appears to be somewhat unreliable historian. Relates is unable to sit beside the bed because of her pain. Better this evening. Pain medication throughout the day. - Labs CBC & Chem 7: 05/09/16 06:16 05/09/16 06:16 Labs: Abnormal Lab Results - Last 24 Hours (Table) 05/09/16 05/09/16 Range/Units 06:16 06:16 WBC 21.1 H (3.8-10.6) k/uL RBC 3.20 L (3.80-5.40) m/uL Hgb 10.1 L (11.4-16.0) gm/dL Hct 31.9 L (34.0-46.0) % Plt Count 478 H (150-450) k/uL Neutrophils # 19.8 H (1.3-7.7) k/uL Lymphocytes # 0.6 L (1.0-4.8) k/uL Carbon Dioxide 31 H (22-30) mmol/L BUN 33 H (7-17) mg/dL Creatinine 1.10 H (0.52-1.04) mg/dL Glucose 105 H (74-99) mg/dL Total Protein 5.7 L (6.3-8.2) g/dL Albumin 2.5 L (3.5-5.0) g/dL Microbiology - Last 24 Hours (Table) 05/04/16 09:40 Blood Culture - Preliminary Blood No Growth after 120 hours 05/04/16 09:52 Blood Culture - Preliminary Blood No Growth after 120 hours Assessment and Plan (1) Bacteremia Narrative/Plan: 89-year-old female who is having a decline of her status over time presents to the hospital because she was profoundly weak. She was having severe pain in her lumbar spine. She is evidence of admission of rhabdomyolysis as well as acute renal failure. She is improving overall except for severe and ongoing pain. There was evidence of possible cultures at admission. There however diphtheroid species and this is a contamination. It will not need further treatment. There is concern about pneumonia she's been treated with levofloxacin and seems to be having some improvement. Her acute renal failure has improved. CT without evidence of abscess. Leukocytosis appears related to current steroid therapy. pain consult to attempt to improve the lower back pain and allow placement in rehab. Status: Acute (2) Low back pain Status: Acute (3) Pneumonia Status: Acute (4) Acute kidney injury Status: Acute
[2016-05-10] MEDS: oxyCODONE-APAP 5-325MG 1 EACH TAB PO PRN ×6 (00:06→22:37)
[2016-05-10] MEDS: LEVOTHYROXINE 25 MCG TAB PO SCH (07:03)
[2016-05-10 07:32] LABS: ALT 33 U/L (9-52); AST 26 U/L (14-36); Alkaline Phosphatase 119 U/L (38-126); Anion Gap 6 mmol/L; Blood Urea Nitrogen 27 mg/dL (7-17); Calcium 8.3 mg/dL (8.4-10.2); Carbon Dioxide 32 mmol/L (22-30); Chloride 97 mmol/L (98-107); Glucose 83 mg/dL (74-99); Non-African American GFR(MDRD) >60 (>60 ml/min/1.73 sqM); Potassium 4.4 mmol/L (3.5-5.1); Sodium 135 mmol/L (137-145); Total Bilirubin 0.4 mg/dL (0.2-1.3); Total Protein 5.3 g/dL (6.3-8.2)
[2016-05-10 07:54] LABS: Basophils % (A) 0 %; CHCM 31.4; Eosinophils # (A) 0.2 k/uL (0-0.7); Eosinophils % (A) 1 %; HCT 29.5 % (34.0-46.0); HDW 2.46; HGB 9.4 gm/dL (11.4-16.0); Hypochromasia Slight; Luc % (Auto) 1; Lymphocytes # (A) 0.5 k/uL (1.0-4.8); Lymphocytes % (A) 3 %; MCH 31.4 pg (25.0-35.0); MCHC 31.8 g/dL (31.0-37.0); MCV 98.9 fL (80.0-100.0); Mean Platelet Volume 7.7; Monocytes # (A) 0.4 k/uL (0-1.0); Monocytes % (A) 2 %; Neutrophils # (A) 16.6 k/uL (1.3-7.7); Neutrophils % (A) 93 %; RBC 2.98 m/uL (3.80-5.40); RDW 12.7 % (11.5-15.5); WBC 17.8 k/uL (3.8-10.6); WBC (Perox) 19.29
[2016-05-10] MEDS: ENOXAPARIN 40 MG/0.4 ML SYRINGE SQ SCH (08:34)
[2016-05-10] MEDS: GABAPENTIN 300 MG CAP PO SCH ×3 (08:34→20:48)
[2016-05-10] MEDS: LEVOFLOXACIN 500 MG TAB PO SCH (08:34)
[2016-05-10] MEDS: PANTOPRAZOLE 40 MG TABLET PO SCH (08:34)
[2016-05-10] MEDS: DOCUSATE 100 MG CAP PO SCH ×2 (08:34→20:48)
[2016-05-10] MEDS: ASPIRIN 81 MG CHEW PO SCH (08:34)
[2016-05-10] MEDS: FLUTICASONE 50MCG/SPRAY NASAL 16GM EA NOSTRIL SCH (08:35)
[2016-05-10] MEDS: MULTIVITAMINS, THERA 1 EACH TAB PO SCH (11:37)
--- NOTE | 2016-05-10 16:41 | P.PN ---
Subjective Principal diagnosis: Pneumonia Patient is an 89-year-old female who presented to [facility] with multiple medical problems including pneumonia, urinary tract infection, intractable back pain, she was admitted to telemetry floor she was started on IV antibiotic, patient had some minimal improvement since yesterday. Objective - Vital Signs Vital signs: Vital Signs Temp 97.8 F 05/10/16 12:00 Pulse 96 05/10/16 12:00 Resp 20 05/10/16 12:00 BP 106/70 05/10/16 12:00 Pulse Ox 94 L 05/10/16 12:00 Intake & Output 05/09/16 05/10/16 05/10/16 18:59 06:59 18:59 Intake Total 300 600 360 Balance 300 600 360 Weight 49 kg 49 kg Intake: Oral 300 600 360 Other: Voiding Method Diaper Diaper Diaper # Voids 4 1 1 # Bowel Movements 0 - Exam In general patient is alert and oriented 3 in no apparent distress HEENT head normocephalic and atraumatic Neck is supple no JVD no goiter no lymphadenopathy Chest exam reveals coarse crackles in both lung vuong no wheezing Cardiac exam reveals regular heart sounds no gallops no murmurs Abdomen is soft nontender no organomegaly Extremity exam reveals no edema no cyanosis or clubbing - Labs CBC & Chem 7: 05/10/16 06:55 05/10/16 06:55 Labs: Abnormal Lab Results - Last 24 Hours (Table) 05/10/16 05/10/16 Range/Units 06:55 06:55 WBC 17.8 H (3.8-10.6) k/uL RBC 2.98 L (3.80-5.40) m/uL Hgb 9.4 L (11.4-16.0) gm/dL Hct 29.5 L (34.0-46.0) % Plt Count 472 H (150-450) k/uL Neutrophils # 16.6 H (1.3-7.7) k/uL Lymphocytes # 0.5 L (1.0-4.8) k/uL Sodium 135 L (137-145) mmol/L Chloride 97 L (98-107) mmol/L Carbon Dioxide 32 H (22-30) mmol/L BUN 27 H (7-17) mg/dL Calcium 8.3 L (8.4-10.2) mg/dL Total Protein 5.3 L (6.3-8.2) g/dL Albumin 2.3 L (3.5-5.0) g/dL Microbiology - Last 24 Hours (Table) 05/04/16 09:40 Blood Culture - Final Blood No Growth after 144 hours 05/04/16 09:52 Blood Culture - Final Blood No Growth after 144 hours Assessment and Plan Plan: #1 right lung infiltrate suggestive of pneumonia #2 urinary tract infection #3 acute hypoxic respiratory failure #4 acute rhabdomyolysis #5 acute kidney injury, improving #6 slightly elevated troponin level on presentation, without any chest pain or any suggestion of acute coronary syndrome #7 acute intractable back pain with physical debility with inability to sit or stand #8 positive blood culture for dephterioid species possibly a contaminant #9 intractable back pain consult anesthesia service for pain management #10 episode of hypotension today, patient received IV fluid she is stable #11 constipation patient received lactulose yesterday without any results she will be given Fleet enema today At this time continue with current medications sputum sample for culture and Gram stain Consult physical therapy and occupational therapy Possible transfer to a rehab unit at [facility] on April tomorrow
[2016-05-11] MEDS: oxyCODONE-APAP 5-325MG 1 EACH TAB PO PRN ×5 (03:40→21:04)
[2016-05-11] MEDS: LEVOTHYROXINE 25 MCG TAB PO SCH (06:43)
[2016-05-11] MEDS: FLUTICASONE 50MCG/SPRAY NASAL 16GM EA NOSTRIL SCH (09:25)
[2016-05-11] MEDS: DOCUSATE 100 MG CAP PO SCH ×2 (09:25→21:04)
[2016-05-11] MEDS: ASPIRIN 81 MG CHEW PO SCH (09:25)
[2016-05-11] MEDS: ENOXAPARIN 40 MG/0.4 ML SYRINGE SQ SCH (09:25)
[2016-05-11] MEDS: GABAPENTIN 300 MG CAP PO SCH ×3 (09:25→21:04)
[2016-05-11] MEDS: LEVOFLOXACIN 500 MG TAB PO SCH (09:26)
[2016-05-11] MEDS: PANTOPRAZOLE 40 MG TABLET PO SCH (09:26)
[2016-05-11] MEDS: MULTIVITAMINS, THERA 1 EACH TAB PO SCH (12:27)
--- NOTE | 2016-05-11 17:31 | P.PN ---
Subjective Principal diagnosis: Pneumonia Patient is an 89-year-old female who presented to [facility] with multiple medical problems including pneumonia, urinary tract infection, intractable back pain, she was admitted to telemetry floor she was started on IV antibiotic, patient had some minimal improvement since yesterday. Objective - Vital Signs Vital signs: Vital Signs Temp 98.6 F 05/11/16 15:43 Pulse 87 05/11/16 15:43 Resp 20 05/11/16 15:43 BP 99/57 05/11/16 15:43 Pulse Ox 98 05/11/16 15:43 Intake & Output 05/10/16 05/11/16 05/11/16 18:59 06:59 18:59 Intake Total 360 420 802 Balance 360 420 802 Weight 49 kg 48 kg 48 kg Intake: IV 20 0.9% NS FLUSH 10 mL 20 Oral 360 400 802 Other: Voiding Method Diaper Diaper Diaper Incontinent Incontinent # Voids 1 2 # Bowel Movements 0 - Exam In general patient is alert and oriented 3 in no apparent distress HEENT head normocephalic and atraumatic Neck is supple no JVD no goiter no lymphadenopathy Chest exam reveals coarse crackles in both lung vuong no wheezing Cardiac exam reveals regular heart sounds no gallops no murmurs Abdomen is soft nontender no organomegaly Extremity exam reveals no edema no cyanosis or clubbing - Labs CBC & Chem 7: 05/10/16 06:55 05/10/16 06:55 Assessment and Plan Plan: #1 right lung infiltrate suggestive of pneumonia #2 urinary tract infection #3 acute hypoxic respiratory failure #4 acute rhabdomyolysis #5 acute kidney injury, improving #6 slightly elevated troponin level on presentation, without any chest pain or any suggestion of acute coronary syndrome #7 acute intractable back pain with physical debility with inability to sit or stand #8 positive blood culture for dephterioid species possibly a contaminant #9 intractable back pain consult anesthesia service for pain management #10 episode of hypotension today, patient received IV fluid she is stable #11 constipation patient received lactulose yesterday without any results she will be given Fleet enema today At this time continue with current medications . Awaiting epidural injection by pain management services sputum sample for culture and Gram stain Consult physical therapy and occupational therapy Possible transfer to a rehab unit at [facility] on April tomorrow
--- NOTE | 2016-05-11 18:33 | P.PN ---
Subjective Principal diagnosis: Weakness This is an 89-year-old female who has history of lumbar spine pain with radiation down the left leg that has been going on for 2 weeks. Patient states that she was hit in her back with the door because her initial pain. She has seen Dr. Chaidez was placed on ibuprofen which did not help and she was called in a prescription for Ultram. Patient apparently has been confused since that time. She came into [facility] emergency center was found to have acute kidney injury with BUN of 68 and creatinine 1.81 and hyperkalemia with 5.5. AST 113, ALT 53 and alkaline phosphatase 184. CK was 2788 and repeat is 1437. Troponins were mildly elevated. Urinalysis was cloudy , blood moderate, the PVCs 13, nitrate and leukoesterase negative. Urine culture showing no growth at 18 hours and finalize. Blood cultures showing gram -positive bacilli/diphtheria species. White count initially 12.1. Patient has been afebrile. Chest x-ray showed COPD, cardiomegaly, right-sided infiltrate. 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 CAT scan of the brain showed no acute abnormality with atrophic change and chronic white matter ischemic change. Patient was admitted to the selective care unit for rhabdomyolysis, acute kidney injury with hyperkalemia, elevated troponins, transaminitis, lumbar pain and possible UTI. Patient has been seen by orthopedic spine with plan for no surgical intervention and possible consult with Dr. Reyes. CAT scan of the lumbar spine showed old mild L2 compression fracture without change. Severe spinal stenosis at L3-4 and L4-5. She is been seen by cardiology and started on Lasix for heart failure and echocardiogram is in process. Patient continues to have low back pain. Patient is an unreliable historian. Patient's goal was to sit at the bedside. This did occur today, she did see pain management.but is still having severe pain and is not able to ambulate Objective - Vital Signs Vital signs: Vital Signs Temp 98.6 F 05/11/16 15:43 Pulse 87 05/11/16 15:43 Resp 20 05/11/16 15:43 BP 99/57 05/11/16 15:43 Pulse Ox 98 05/11/16 15:43 Intake & Output 05/10/16 05/11/16 05/11/16 18:59 06:59 18:59 Intake Total 360 420 802 Balance 360 420 802 Weight 49 kg 48 kg 48 kg Intake: IV 20 0.9% NS FLUSH 10 mL 20 Oral 360 400 802 Other: Voiding Method Diaper Diaper Diaper Incontinent Incontinent # Voids 1 2 # Bowel Movements 0 - Exam Gen: This is an 89-year-old female. She is found in bed and appears to be in no acute distress. Patient is very talkative. HEENT: Head is atraumatic, normocephalic. Pupils equal, round. Sclerae is anicteric. conjunctiva pink. Mucous membranes of the mouth are dry. No thrush noted. NECK: Supple. No JVD. No lymphadenopathy. No thyromegaly. LUNGS: diminished bilaterallyi. No intercostal retractions. HEART: Regular rate and rhythm. No murmur. ABDOMEN: Soft. Bowel sounds are present. No masses. No tenderness. EXTREMITIES: No pedal edema. No calf tenderness.dorsalis pedis +2 bilaterally. Patient does have lumbar pain with straight leg raise worse on the left than right. Tenderness to the lumbar L4 area on the left NEUROLOGICAL: Patient is awake, alert and oriented x2. Cranial nerves 2 through 12 are grossly intact. patient appears to be somewhat unreliable historian. Relates is unable to sit beside the bed because of her pain. Better this evening. Pain medication throughout the day. - Labs CBC & Chem 7: 05/10/16 06:55 05/10/16 06:55 Labs: Laboratory Results WBC 17.8 k/uL (3.8-10.6) H 05/10/16 06:55 RBC 2.98 m/uL (3.80-5.40) L 05/10/16 06:55 Hgb 9.4 gm/dL (11.4-16.0) L 05/10/16 06:55 Hct 29.5 % (34.0-46.0) L 05/10/16 06:55 MCV 98.9 fL (80.0-100.0) 05/10/16 06:55 MCH 31.4 pg (25.0-35.0) 05/10/16 06:55 MCHC 31.8 g/dL (31.0-37.0) 05/10/16 06:55 RDW 12.7 % (11.5-15.5) 05/10/16 06:55 Plt Count 472 k/uL (150-450) H 05/10/16 06:55 Neutrophils % 93 % 05/10/16 06:55 Lymphocytes % 3 % 05/10/16 06:55 Monocytes % 2 % 05/10/16 06:55 Eosinophils % 1 % 05/10/16 06:55 Basophils % 0 % 05/10/16 06:55 Neutrophils # 16.6 k/uL (1.3-7.7) H 05/10/16 06:55 Lymphocytes # 0.5 k/uL (1.0-4.8) L 05/10/16 06:55 Monocytes # 0.4 k/uL (0-1.0) 05/10/16 06:55 Eosinophils # 0.2 k/uL (0-0.7) 05/10/16 06:55 Basophils # 0.0 k/uL (0-0.2) 05/10/16 06:55 Hypochromasia Slight 05/10/16 06:55 PT 10.6 sec (9.0-12.0) 05/03/16 05:51 INR 1.1 (<1.1) 05/03/16 05:51 APTT 26.3 sec (22.0-30.0) 05/02/16 09:20 Sodium 135 mmol/L (137-145) L 05/10/16 06:55 Potassium 4.4 mmol/L (3.5-5.1) 05/10/16 06:55 Chloride 97 mmol/L (98-107) L 05/10/16 06:55 Carbon Dioxide 32 mmol/L (22-30) H 05/10/16 06:55 Anion Gap 6 mmol/L 05/10/16 06:55 BUN 27 mg/dL (7-17) H 05/10/16 06:55 Creatinine 0.70 mg/dL (0.52-1.04) 05/10/16 06:55 Est GFR (MDRD) Af Amer >60 (>60 ml/min/1.73 sqM) 05/10/16 06:55 Est GFR (MDRD) Non-Af >60 (>60 ml/min/1.73 sqM) 05/10/16 06:55 Glucose 83 mg/dL (74-99) 05/10/16 06:55 Plasma Lactic Acid Jerzy 1.6 mmol/L (0.7-2.0) 05/08/16 11:51 Calcium 8.3 mg/dL (8.4-10.2) L 05/10/16 06:55 Phosphorus 4.5 mg/dL (2.5-4.5) 05/02/16 09:20 Magnesium 3.1 mg/dL (1.6-2.3) H 05/02/16 09:20 Total Bilirubin 0.4 mg/dL (0.2-1.3) 05/10/16 06:55 AST 26 U/L (14-36) 05/10/16 06:55 ALT 33 U/L (9-52) 05/10/16 06:55 Alkaline Phosphatase 119 U/L (38-126) 05/10/16 06:55 Creatine Kinase 549 U/L (30-135) H 05/04/16 05:50 Total Creatine Kinase 1437 U/L (30-135) H 05/02/16 21:57 CK-MB (CK-2) 9.3 ng/mL (0.0-2.4) H* 05/02/16 21:57 CK-MB (CK-2) Rel Index 0.6 05/02/16 21:57 Troponin I 0.042 ng/mL (0.000-0.034) H* 05/02/16 21:57 NT-Pro-B Natriuret Pep 6130 pg/mL 05/02/16 09:20 Total Protein 5.3 g/dL (6.3-8.2) L 05/10/16 06:55 Albumin 2.3 g/dL (3.5-5.0) L 05/10/16 06:55 Urine Color Yellow 05/02/16 09:20 Urine Appearance Cloudy (Clear) H 05/02/16 09:20 Urine pH 5.5 (5.0-8.0) 05/02/16 09:20 Ur Specific [facility] 1.014 (1.001-1.035) 05/02/16 09:20 Urine Protein 1+ (Negative) H 05/02/16 09:20 Urine Glucose (UA) Negative (Negative) 05/02/16 09:20 Urine Ketones Negative (Negative) 05/02/16 09:20 Urine Blood Moderate (Negative) H 05/02/16 09:20 Urine Nitrite Negative (Negative) 05/02/16 09:20 Urine Bilirubin Negative (Negative) 05/02/16 09:20 Urine Urobilinogen <2.0 mg/dL (<2.0) 05/02/16 09:20 Ur Leukocyte Esterase Negative (Negative) 05/02/16 09:20 Urine WBC 13 /hpf (0-5) H 05/02/16 09:20 Urine WBC Clumps Few /hpf (None) H 05/02/16 09:20 Amorphous Sediment Rare /hpf (None) H 05/02/16 09:20 Granular Casts 1 /lpf (0) 05/02/16 09:20 Urine Mucus Rare /hpf (None) H 05/02/16 09:20 Microbiology 05/04/16 09:40 Blood Blood Culture - Final No Growth after 144 hours 05/04/16 09:52 Blood Blood Culture - Final No Growth after 144 hours 05/07/16 14:47 Sputum Gram Stain - Final 05/07/16 14:47 Sputum Sputum Culture - Final 05/02/16 09:20 Blood Blood Culture Gram Stain - Final 05/02/16 09:20 Blood Blood Culture - Final Diphtheroid species 05/02/16 09:20 Blood Blood Culture - Final 05/02/16 09:20 Urine,Catheterized Urine Culture - Final Assessment and Plan (1) Bacteremia Narrative/Plan: 89-year-old female who is having a decline of her status over time presents to the hospital because she was profoundly weak. She was having severe pain in her lumbar spine. She is evidence of admission of rhabdomyolysis as well as acute renal failure. She is improving overall except for severe and ongoing pain. There was evidence of possible cultures at admission. There however diphtheroid species and this is a contamination. It will not need further treatment. There is concern about pneumonia she's been treated with levofloxacin and seems to be having some improvement. Her acute renal failure has improved. CT without evidence of abscess. Leukocytosis appears related to current steroid therapy. pain consult to attempt to improve the lower back pain and allow placement in rehab. Status: Acute (2) Low back pain Status: Acute (3) Pneumonia Status: Acute (4) Acute kidney injury Status: Acute
[2016-05-12] MEDS: LEVOTHYROXINE 25 MCG TAB PO SCH (06:20)
[2016-05-12] MEDS: oxyCODONE-APAP 5-325MG 1 EACH TAB PO PRN ×5 (06:20→21:38)
[2016-05-12] MEDS: DOCUSATE 100 MG CAP PO SCH ×2 (08:02→21:38)
[2016-05-12] MEDS: PANTOPRAZOLE 40 MG TABLET PO SCH (08:02)
[2016-05-12] MEDS: ASPIRIN 81 MG CHEW PO SCH (08:02)
[2016-05-12] MEDS: GABAPENTIN 300 MG CAP PO SCH ×3 (08:02→21:38)
[2016-05-12] MEDS: LEVOFLOXACIN 250 MG TAB PO SCH (08:02)
[2016-05-12] MEDS: FLUTICASONE 50MCG/SPRAY NASAL 16GM EA NOSTRIL SCH (08:02)
[2016-05-12 09:58] LABS: Basophils % (A) 0 %; CH 31.2; CHCM 31.5; Eosinophils # (A) 0.2 k/uL (0-0.7); Eosinophils % (A) 1 %; HCT 30.2 % (34.0-46.0); HDW 2.51; HGB 9.5 gm/dL (11.4-16.0); Hypochromasia Slight; Luc % (Auto) 1; Lymphocytes # (A) 0.4 k/uL (1.0-4.8); Lymphocytes % (A) 4 %; MCH 31.1 pg (25.0-35.0); MCHC 31.3 g/dL (31.0-37.0); MCV 99.4 fL (80.0-100.0); Mean Platelet Volume 7.3; Monocytes # (A) 0.4 k/uL (0-1.0); Monocytes % (A) 3 %; Neutrophils # (A) 10.3 k/uL (1.3-7.7); Neutrophils % (A) 91 %; RBC 3.04 m/uL (3.80-5.40); RDW 12.8 % (11.5-15.5); WBC 11.3 k/uL (3.8-10.6); WBC (Perox) 12.06
[2016-05-12] MEDS: MULTIVITAMINS, THERA 1 EACH TAB PO SCH (10:38)
[2016-05-12 10:40] LABS: ALT 25 U/L (9-52); AST 27 U/L (14-36); Alkaline Phosphatase 122 U/L (38-126); Anion Gap 8 mmol/L; Blood Urea Nitrogen 16 mg/dL (7-17); Calcium 8.5 mg/dL (8.4-10.2); Carbon Dioxide 29 mmol/L (22-30); Chloride 99 mmol/L (98-107); Glucose 99 mg/dL (74-99); Non-African American GFR(MDRD) >60 (>60 ml/min/1.73 sqM); Potassium 4.4 mmol/L (3.5-5.1); Sodium 136 mmol/L (137-145); Total Bilirubin 0.4 mg/dL (0.2-1.3); Total Protein 5.7 g/dL (6.3-8.2)
--- NOTE | 2016-05-12 13:40 | P.PN ---
Subjective Principal diagnosis: Pneumonia Patient is an 89-year-old female who presented to [facility] with multiple medical problems including pneumonia, urinary tract infection, intractable back pain, she was admitted to telemetry floor she was started on IV antibiotic, patient had some minimal improvement since yesterday. Objective - Vital Signs Vital signs: Vital Signs Temp 98.3 F 05/12/16 07:00 Pulse 87 05/12/16 07:00 Resp 14 05/12/16 07:00 BP 89/57 05/12/16 07:00 Pulse Ox 96 05/12/16 07:00 Intake & Output 05/11/16 05/12/16 05/12/16 18:59 06:59 18:59 Intake Total 902 350 Balance 902 350 Weight 48 kg 47.5 kg Intake: Oral 902 350 Other: Voiding Method Diaper Diaper Diaper Incontinent Incontinent Incontinent # Voids 2 1 2 - Exam In general patient is alert and oriented 3 in no apparent distress HEENT head normocephalic and atraumatic Neck is supple no JVD no goiter no lymphadenopathy Chest exam reveals coarse crackles in both lung vuong no wheezing Cardiac exam reveals regular heart sounds no gallops no murmurs Abdomen is soft nontender no organomegaly Extremity exam reveals no edema no cyanosis or clubbing - Labs CBC & Chem 7: 05/12/16 09:07 05/12/16 09:07 Labs: Abnormal Lab Results - Last 24 Hours (Table) 05/12/16 05/12/16 Range/Units 09:07 09:07 WBC 11.3 H (3.8-10.6) k/uL RBC 3.04 L (3.80-5.40) m/uL Hgb 9.5 L (11.4-16.0) gm/dL Hct 30.2 L (34.0-46.0) % Plt Count 566 H (150-450) k/uL Neutrophils # 10.3 H (1.3-7.7) k/uL Lymphocytes # 0.4 L (1.0-4.8) k/uL Sodium 136 L (137-145) mmol/L Total Protein 5.7 L (6.3-8.2) g/dL Albumin 2.4 L (3.5-5.0) g/dL Assessment and Plan Plan: #1 right lung infiltrate suggestive of pneumonia #2 urinary tract infection #3 acute hypoxic respiratory failure #4 acute rhabdomyolysis #5 acute kidney injury, improving #6 slightly elevated troponin level on presentation, without any chest pain or any suggestion of acute coronary syndrome #7 acute intractable back pain with physical debility with inability to sit or stand #8 positive blood culture for dephterioid species possibly a contaminant #9 intractable back pain consult anesthesia service for pain management #10 episode of hypotension today, patient received IV fluid she is stable #11 constipation patient received lactulose yesterday without any results she will be given Fleet enema today At this time continue with current medications . Awaiting epidural injection by pain management services sputum sample for culture and Gram stain Consult physical therapy and occupational therapy At this time awaiting pain management service for possible epidural injection Possible discharge to [facility] in 1-2 days
[2016-05-13] MEDS: LEVOTHYROXINE 25 MCG TAB PO SCH (06:18)
[2016-05-13] MEDS: oxyCODONE-APAP 5-325MG 1 EACH TAB PO PRN ×3 (06:45→14:35)
[2016-05-13 07:41] VITALS: BP 85/53; PULSE 86; RESP 20; TEMP 98.4
[2016-05-13] MEDS: ASPIRIN 81 MG CHEW PO SCH (07:43)
[2016-05-13] MEDS: GABAPENTIN 300 MG CAP PO SCH ×2 (08:06→14:35)
[2016-05-13] MEDS: LEVOFLOXACIN 250 MG TAB PO SCH (08:06)
[2016-05-13] MEDS: PANTOPRAZOLE 40 MG TABLET PO SCH (08:06)
[2016-05-13] MEDS: FLUTICASONE 50MCG/SPRAY NASAL 16GM EA NOSTRIL SCH (08:06)
[2016-05-13] MEDS: DOCUSATE 100 MG CAP PO SCH (08:06)
[2016-05-13] MEDS ORDERED: ENOXAPARIN 40 MG/0.4 ML SYRINGE SQ SCH (09:00)
[2016-05-13] MEDS: MULTIVITAMINS, THERA 1 EACH TAB PO SCH (11:05)
--- NOTE | 2016-05-13 13:05 | P.DS ---
Providers Date of admission: 05/02/16 11:45 Expected date of discharge: 05/13/16 Attending physician: Mario Rain Consults: 05/03/16 09:50 Consult Physician Routine Consulting Provider: Umer Crain Consult Reason/Comments: gait disturbance Do you want consulting provider notified?: Yes 05/03/16 11:49 Consult Anesthesia Routine Consulting Provider: Anesthesia,Services Consult Reason/Comments: Low back pain and left LE radiculopathy with difficulty in ambulation 05/03/16 14:59 Consult Physician Urgent Consulting Provider: Hilton Fuller Consult Reason/Comments: Gram positive Bacilli Do you want consulting provider notified?: Yes 05/06/16 16:00 Consult Physician Routine Consulting Provider: Dianna Reyes Consult Reason/Comments: pain management Do you want consulting provider notified?: Yes Primary care physician: Mario [facility] Course: This is a 89-year-old female with past medical history noted below who presented to the hospital initially with generalized weakness and was found to have acute kidney injury and evidence of rhabdomyolysis. Patient was treated with antibiotic for underlying pneumonia and possible UTI. Blood culture came back contaminant and repeat blood culture were negative. Patient was complaining of severe and intractable low back pain. 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 She was seen and evaluated by pain services and her regimen was adjusted. She was also seen by PT/OT and plan is to discharge her to rehab facility. He was at his of her medical problems addressed during this hospitalization. #1 right lung infiltrate suggestive of pneumonia #2 urinary tract infection #3 acute hypoxic respiratory failure #4 acute rhabdomyolysis #5 acute kidney injury, improving #6 slightly elevated troponin level on presentation, without any chest pain or any suggestion of acute coronary syndrome #7 acute intractable back pain with physical debility with inability to sit or stand Patient Condition at Discharge: Fair Plan - Discharge Summary New Discharge Prescriptions: oxyCODONE-APAP 5-325MG [Percocet 5-325 mg] 1 each PO Q4HR PRN #60 tab PRN Reason: Pain Discharge Medication List Aspirin 81 mg PO DAILY 02/04/14 [History] Multivitamin/Iron/Folic Acid [Centrum Complete Multivit Tab] 1 tab PO DAILY [History] Alendronate Sodium [Fosamax] 70 mg PO WEEKLY 02/08/14 [History] Fluticasone Nasal [place] [Flonase Nasal [place]] 1 spray EA NOSTRIL DAILY 05/02/16 [History] Ibuprofen [Motrin] 800 mg PO BID PRN 05/02/16 [History] Levothyroxine Sodium [Synthroid] 25 mcg PO DAILY 05/02/16 [History] Magnesium Hydroxide [Milk of Magnesia] 400 mg PO DAILY PRN 05/02/16 [History] Acetaminophen Tab [Tylenol] 650 mg PO Q6HR PRN #0 tab 05/13/16 [Rx] Gabapentin [Neurontin] 600 mg PO TID cap 05/13/16 [Rx] oxyCODONE-APAP 5-325MG [Percocet 5-325 mg] 1 each PO Q4HR PRN #60 tab 05/13/16 [ Rx] Follow up Appointment(s)/Referral(s): Kisha Burrell MD [STAFF PHYSICIAN] - 1 Week Discharge Disposition: TRANSFER TO SNF/ECF
== END 2016-05-13 15:00 | DRG 193 ==
LOC: EC 08:58 → 6SEL 11:45 → 4MS4W 05-11 19:23
PROVIDERS: ADMIT Internal Medicine; ATTEND Internal Medicine
DX: J18.9 Pneumonia, unspecified organism (principal); J96.01 Acute respiratory failure with hypoxia; I50.33 Acute on chronic diastolic (congestive) heart failure; G92 Toxic encephalopathy; R64 Cachexia; I95.9 Hypotension, unspecified; N17.9 Acute kidney failure, unspecified; R78.81 Bacteremia; M62.82 Rhabdomyolysis; J44.0 Chronic obstructive pulmonary disease with (acute) lower respiratory infection; N39.0 Urinary tract infection, site not specified; Z68.1 Body mass index [BMI] 19.9 or less, adult; I11.0 Hypertensive heart disease with heart failure; G62.9 Polyneuropathy, unspecified; E87.5 Hyperkalemia; E86.0 Dehydration; M16.0 Bilateral primary osteoarthritis of hip; I34.0 Nonrheumatic mitral (valve) insufficiency; M48.07 Spinal stenosis, lumbosacral region; M48.06 Spinal stenosis, lumbar region; T38.0X5A Adverse effect of glucocorticoids and synthetic analogues, initial encounter; T40.4X5A Adverse effect of other synthetic narcotics, initial encounter; E86.1 Hypovolemia; I49.3 Ventricular premature depolarization; I67.9 Cerebrovascular disease, unspecified; G89.29 Other chronic pain; M47.816 Spondylosis without myelopathy or radiculopathy, lumbar region; M47.26 Other spondylosis with radiculopathy, lumbar region; M46.96 Unspecified inflammatory spondylopathy, lumbar region; N39.41 Urge incontinence; M51.17 Intervertebral disc disorders with radiculopathy, lumbosacral region; M79.605 Pain in left leg; R74.8 Abnormal levels of other serum enzymes; K59.09 Other constipation; E03.9 Hypothyroidism, unspecified; R15.9 Full incontinence of feces; J45.909 Unspecified asthma, uncomplicated; R26.2 Difficulty in walking, not elsewhere classified; F41.9 Anxiety disorder, unspecified; D72.829 Elevated white blood cell count, unspecified; R74.0 Nonspecific elevation of levels of transaminase and lactic acid dehydrogenase [LDH]; R94.31 Abnormal electrocardiogram [ECG] [EKG]; Z82.49 Family history of ischemic heart disease and other diseases of the circulatory system; Z79.899 Other long term (current) drug therapy; Z79.82 Long term (current) use of aspirin; Z87.891 Personal history of nicotine dependence; Z88.0 Allergy status to penicillin; Z87.828 Personal history of other (healed) physical injury and trauma; Z79.83 Long term (current) use of bisphosphonates; Z79.1 Long term (current) use of non-steroidal anti-inflammatories (NSAID); Z90.49 Acquired absence of other specified parts of digestive tract; Z79.51 Long term (current) use of inhaled steroids; Z71.3 Dietary counseling and surveillance; Z87.311 Personal history of (healed) other pathological fracture; Z90.710 Acquired absence of both cervix and uterus; W01.198A Fall on same level from slipping, tripping and stumbling with subsequent striking against other object, initial encounter; Y93.9 Activity, unspecified; Y92.008 Other place in unspecified non-institutional (private) residence as the place of occurrence of the external cause
CPT/HCPCS: 36415; 70450; 71020; 72100; 72131; 72170; 80048; 80053; 81001; 82550; 82553; 83605; 83735; 83880; 84100; 84484; 85025; 85610; 85730; 87040; 87070; 87086; 87205; 93005; 93306; 94760; 96365; 96366; 96376; 99285

== ENCOUNTER 2016-05-25 12:48 | Inpatient (IN) | payer MEDICARE ==
[2016-05-25] MEDS ORDERED: PANTOPRAZOLE 40 MG/10 ML VIAL IVP STA (13:14)
--- NOTE | 2016-05-25 13:18 | ED ---
General Adult HPI - General Chief complaint: Extremity Injury, Lower Stated complaint: abn labs Time Seen by Provider: 05/25/16 13:05 Source: patient, EMS, RN notes reviewed Mode of arrival: EMS Limitations: altered mental status - History of Present Illness Initial comments: Patient is a pleasant 82-year-old female presenting to the emergency department with reported coffee-ground emesis. Patient has had several episodes. Patient is a poor historian and has difficulty providing history. Chart review only shows aspirin as far as anticoagulation. No known history of similar symptoms previously. Patient believes she was recently started on steroids however is unclear why. No abdominal pain. Patient has been slightly constipated recently. Last bowel movement was 2 days ago and described as normal. Patient reportedly has a low hemoglobin level. - Related Data Home Medications Medication Instructions Recorded Confirmed Aspirin 81 mg PO DAILY 02/04/14 05/25/16 Multivitamin/Iron/Folic Acid 1 tab PO DAILY 02/04/14 05/25/16 [Centrum Complete Multivit Tab] Alendronate Sodium [Fosamax] 70 mg PO SA 02/08/14 05/25/16 Fluticasone Nasal [place] [Flonase 1 spray EA NOSTRIL DAILY 05/02/16 05/25/16 Nasal [place]] Ibuprofen [Motrin] 800 mg PO BID PRN 05/02/16 05/25/16 Levothyroxine Sodium [Synthroid] 25 mcg PO DAILY 05/02/16 05/25/16 Gabapentin [Neurontin] 600 mg PO Q8H 05/25/16 05/25/16 Simethicone Chew [Mylicon Chew] 80 mg PO Q6H PRN 05/25/16 05/25/16 methylPREDNISolone [Medrol] 4 mg PO DAILY 05/25/16 05/25/16 oxyCODONE-APAP 5-325MG [Percocet 1 - 2 tab PO Q4HR PRN 05/25/16 05/25/16 5-325 mg] Previous Rx's Medication Instructions Recorded Acetaminophen Tab [Tylenol] 650 mg PO Q6HR PRN #0 tab 05/13/16 Allergies Allergy/AdvReac Type Severity Reaction Status Date / Time Penicillins Allergy Rash/Hives Verified 05/25/16 13:36 Review of Systems ROS Statement: Those systems with pertinent positive or pertinent negative responses have been documented in the HPI. ROS Other: All systems not noted in ROS Statement are negative. Constitutional: Denies: fever Eyes: Denies: eye pain ENT: Denies: ear pain Respiratory: Denies: cough Cardiovascular: Denies: chest pain Endocrine: Denies: fatigue Gastrointestinal: Reports: nausea, vomiting. Denies: abdominal pain Genitourinary: Denies: dysuria Musculoskeletal: Denies: back pain Skin: Denies: rash Neurological: Denies: headache Past Medical History Past Medical History: Hypertension Additional Past Medical History / Comment(s): chronic back pain, polyneuropathy, arthritis History of Any Multi-Drug Resistant Organisms: None Reported Past Surgical History: Adenoidectomy, Appendectomy, Hysterectomy, Tonsillectomy Past Anesthesia/Blood Transfusion Reactions: No Reported Reaction Past Psychological History: Anxiety Smoking Status: Former smoker Past Alcohol Use History: Daily Additional Past Alcohol Use History / Comment(s): patient was a smoker for approximately 43 years. 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 She has a cat in the home. She does have a friend that helps her daily. Past Drug Use History: None Reported - Past Family History Mother History Unknown: Yes General Exam Limitations: no limitations General appearance: alert, in no apparent distress Head exam: Present: atraumatic Eye exam: Present: other (Pale conjunctiva) ENT exam: Present: normal oropharynx Neck exam: Present: normal inspection Respiratory exam: Present: normal lung sounds bilaterally Cardiovascular Exam: Present: regular rate, normal rhythm GI/Abdominal exam: Present: soft. Absent: tenderness Extremities exam: Present: pedal edema. Absent: calf tenderness Neurological exam: Present: alert Psychiatric exam: Present: normal affect, normal mood Skin exam: Absent: rash Course Vital Signs 05/25/16 13:07 Pulse Rate 100 Respiratory 18 Rate Blood Pressure 118/58 Medical Decision Making - Medical Decision Making Patient reexamined and resting comfortably in bed. Patient and family are updated. Patient will need blood transfusion secondary to anemia. Case discussed in detail with Dr. Chen, who will admit. Admission orders written. Case was discussed with Dr. Chen, who will admit for Dr. Rain. - Lab Data Result diagrams: 05/25/16 13:50 05/25/16 13:50 Lab Results 05/25/16 05/25/16 Range/Units 13:50 13:50 WBC 16.0 H (3.8-10.6) k/uL RBC 1.36 L (3.80-5.40) m/uL Hgb 4.3 L* (11.4-16.0) gm/dL Hct 14.0 L* (34.0-46.0) % MCV 102.8 H (80.0-100.0) fL MCH 31.6 (25.0-35.0) pg MCHC 30.7 L (31.0-37.0) g/dL RDW 19.7 H (11.5-15.5) % Plt Count 482 H (150-450) k/uL Neutrophils % 94 % Lymphocytes % 4 % Monocytes % 2 % Eosinophils % 0 % Basophils % 0 % Neutrophils # 14.9 H (1.3-7.7) k/uL Lymphocytes # 0.6 L (1.0-4.8) k/uL Monocytes # 0.3 (0-1.0) k/uL Eosinophils # 0.0 (0-0.7) k/uL Basophils # 0.0 (0-0.2) k/uL Hypochromasia Moderate Anisocytosis Slight Macrocytosis Moderate Sodium 139 (137-145) mmol/L Potassium 4.6 (3.5-5.1) mmol/L Chloride 105 (98-107) mmol/L Carbon Dioxide 19 L (22-30) mmol/L Anion Gap 15 mmol/L BUN 49 H (7-17) mg/dL Creatinine 0.70 (0.52-1.04) mg/dL Est GFR (MDRD) Af Amer >60 (>60 ml/min/1.73 sqM) Est GFR (MDRD) Non-Af >60 (>60 ml/min/1.73 sqM) Glucose 119 H (74-99) mg/dL Calcium 8.7 (8.4-10.2) mg/dL Total Bilirubin 0.5 (0.2-1.3) mg/dL AST 34 (14-36) U/L ALT 25 (9-52) U/L Alkaline Phosphatase 133 H (38-126) U/L Total Protein 6.2 L (6.3-8.2) g/dL Albumin 2.9 L (3.5-5.0) g/dL Critical Care Time Critical Care Time: Yes Total Critical Care Time: 32 Disposition Clinical Impression: Upper GI hemorrhage, Anemia Disposition: ADMITTED IP TO THIS HOSP Condition: Serious Time of Disposition: 15:01
[2016-05-25 14:13] LABS: Anisocytosis Slight; Basophils % (A) 0 %; CH 31.9; CHCM 31.3; Eosinophils % (A) 0 %; HDW 3.17; Hypochromasia Moderate; Luc # (Auto) 0.11; Luc % (Auto) 1; Lymphocytes # (A) 0.6 k/uL (1.0-4.8); Lymphocytes % (A) 4 %; MCH 31.6 pg (25.0-35.0); MCHC 30.7 g/dL (31.0-37.0); MCV 102.8 fL (80.0-100.0); Macrocytosis Moderate; Mean Platelet Volume 7.1; Monocytes # (A) 0.3 k/uL (0-1.0); Monocytes % (A) 2 %; Neutrophils # (A) 14.9 k/uL (1.3-7.7); Neutrophils % (A) 94 %; RBC 1.36 m/uL (3.80-5.40); RDW 19.7 % (11.5-15.5)
[2016-05-25 14:19] LABS: ALT 25 U/L (9-52); AST 34 U/L (14-36); Alkaline Phosphatase 133 U/L (38-126); Anion Gap 15 mmol/L; Blood Urea Nitrogen 49 mg/dL (7-17); Calcium 8.7 mg/dL (8.4-10.2); Carbon Dioxide 19 mmol/L (22-30); Chloride 105 mmol/L (98-107); Glucose 119 mg/dL (74-99); Non-African American GFR(MDRD) >60 (>60 ml/min/1.73 sqM); Potassium 4.6 mmol/L (3.5-5.1); Sodium 139 mmol/L (137-145); Total Bilirubin 0.5 mg/dL (0.2-1.3); Total Protein 6.2 g/dL (6.3-8.2)
[2016-05-25 14:30] LABS: HGB 4.3 gm/dL (11.4-16.0)
[2016-05-25 14:43] LABS: INR 1.2 (<1.1); Prothrombin Time 11.7 sec (9.0-12.0)
[2016-05-25 14:58] LABS: Partial Thromboplastin Time 18.1 sec (22.0-30.0)
[2016-05-25] MEDS ORDERED: NALOXONE 0.4 MG/ML 1 ML VIAL IV PRN (15:02)
[2016-05-25 17:06] LABS: Glucose,Whole Blood 129 mg/dL (75-99)
[2016-05-25] MEDS: MORPHINE SULFATE 4 MG/ML SYRINGE IV PRN (17:59)
[2016-05-25 18:18] VITALS: BMI 20.3
--- NOTE | 2016-05-25 19:43 | CONS ---
DATE OF CONSULTATION: 05/25/2016 REASON FOR CONSULTATION: Acute upper GI bleed. HISTORY OF PRESENT ILLNESS: The patient is an 89-year-old pleasant lady who was admitted to the hospital with coffee-ground emesis for the last 2 days' duration. The patient said that she has been having some vague abdominal discomfort with early satiety for the last 1 or 2 years' duration. However, for the last 2 days she started having some coffee-ground emesis. She recently had some back pain, went to see Dr. Burnett, and she was given some Motrin for back pain and was also started on steroid Dosepak. She started feeling much better but 2 days ago started with multiple episodes of coffee-ground emesis and this morning was not feeling well, came into the emergency room and was noted to have a hemoglobin of 4.3 and subsequently admitted to the intensive care unit. Since being in the hospital, she has not no further episodes of bleeding. She thought her stools were black and tarry in nature. She reports no abdominal pain, no further episodes of nausea or vomiting; never had similar symptoms in past. She was diagnosed with peptic ulcer disease about 60 years ago. Past medical history is significant for: 1. Degenerative joint disease. 2. Hypothyroidism. 3. Hypertension. 4. Osteoporosis. 5. Chronic back pain. 6. Peripheral neuropathy. PAST SURGICAL HISTORY: 1. Adenoidectomy. 2. Appendectomy. 3. Hysterectomy. 4. Tonsillectomy. Medications at home include: 1. Percocet. 2. Medrol Dosepak. 3. Neurontin. 4. Synthroid. 5. Motrin. 6. Flonase. 7. Fosamax. 8. Aspirin. 9. Calcium. 10. Multivitamin. ALLERGIES: PENICILLIN. SOCIAL HISTORY: No smoking. No alcohol use. FAMILY HISTORY: Unremarkable. REVIEW OF SYSTEMS: CARDIOPULMONARY: No chest pain or shortness of breath. GENITOURINARY: No dysuria or hematuria. MUSCULOSKELETAL: Back pain. NEUROLOGY: Unremarkable. PSYCHIATRIC: Unremarkable. ENT/VISION: Unremarkable. CONSTITUTIONAL: No recent weight loss. No fever, chills, night sweats. ENDOCRINE: Unremarkable. PSYCHIATRIC: Unremarkable. HEMATOLOGY: Anemia. On physical examination, she appears comfortable, in no apparent distress. Vital signs are stable. Blood pressure 120/56, pulse rate 96, temperature 98. HEENT EXAMINATION: Unremarkable. Conjunctivae pink. Sclerae anicteric. Oral cavity with no lesions. NECK: No JVD or lymph node enlargement. CHEST: Clear to auscultation. HEART: Regular rate and rhythm. ABDOMEN: Slightly distended, but it was nontender, nondistended. Bowel sounds are positive. No organomegaly. EXTREMITIES: No pedal edema. Some hyperpigmentation noted in the lower extremities. SKIN: No rashes. NEURO: She is alert and oriented x3. LABS: WBC 16, hemoglobin 4.8, platelets 482. MCV is 102. INR 1.2. BUN is 49, creatinine 0.7. AST, ALT, total bilirubin, alkaline phosphatase are within normal limits. IMPRESSION: Severe symptomatic anemia and coffee-ground emesis for the last 2 days' duration. Her hemoglobin was 4.3, requiring 3 units of PRBC transfusion. Since being in the hospital, no further episodes of bleeding. Patient was recently started on Motrin as well as Medrol Dosepak for back pain. Most likely we are dealing with peptic ulcer disease. At present hemodynamically stable. RECOMMENDATIONS: 1. Start her on a clear liquid diet. 2. Will plan on upper endoscopy tomorrow. 3. IV Protonix q.12 hours. 4. CBC every 6 hours, and transfuse if the hemoglobin is less than 7. Will continue to follow the patient closely during her hospital stay. Thank you for this consultation.
[2016-05-25] MEDS: SODIUM CHLORIDE 0.9% 1,000 ML IV SCH (20:21)
[2016-05-25] MEDS: PANTOPRAZOLE 40 MG/10 ML VIAL IV SCH (20:22)
[2016-05-26 00:32] LABS: Anisocytosis Slight; Basophils # (A) 0.1 k/uL (0-0.2); Basophils % (A) 0 %; CH 32.1; CHCM 34.8; Eosinophils # (A) 0.4 k/uL (0-0.7); Eosinophils % (A) 2 %; HCT 26.4 % (34.0-46.0); Luc # (Auto) 0.16; Luc % (Auto) 1; Lymphocytes % (A) 7 %; MCH 30.4 pg (25.0-35.0); MCHC 32.6 g/dL (31.0-37.0); Mean Platelet Volume 8.2; Monocytes # (A) 0.7 k/uL (0-1.0); Monocytes % (A) 4 %; Neutrophils # (A) 13.4 k/uL (1.3-7.7); Neutrophils % (A) 85 %; Poikilocytosis Slight; RBC 2.83 m/uL (3.80-5.40); RDW 19.5 % (11.5-15.5); WBC 15.6 k/uL (3.8-10.6); WBC (Perox) 15.78
[2016-05-26 00:33] LABS: MCV 93.2 fL (80.0-100.0)
[2016-05-26] MEDS: MORPHINE SULFATE 4 MG/ML SYRINGE IV PRN ×7 (00:49→23:13)
[2016-05-26] MEDS: SODIUM CHLORIDE 0.9% 1,000 ML IV SCH ×2 (00:50→18:26)
[2016-05-26 05:45] LABS: Anisocytosis Moderate; CH 31.8; CHCM 33.9; HCT 26.5 % (34.0-46.0); HDW 3.78; HGB 8.9 gm/dL (11.4-16.0); MCH 31.8 pg (25.0-35.0); MCHC 33.5 g/dL (31.0-37.0); Macrocytosis Slight; Mean Platelet Volume 6.7; Poikilocytosis Slight; RBC 2.79 m/uL (3.80-5.40); RDW 20.4 % (11.5-15.5); WBC 11.5 k/uL (3.8-10.6)
[2016-05-26 05:55] LABS: Anion Gap 7 mmol/L; Blood Urea Nitrogen 36 mg/dL (7-17); Calcium 7.8 mg/dL (8.4-10.2); Carbon Dioxide 24 mmol/L (22-30); Chloride 107 mmol/L (98-107); Glucose 86 mg/dL (74-99); Non-African American GFR(MDRD) >60 (>60 ml/min/1.73 sqM); Phosphorous 2.9 mg/dL (2.5-4.5); Potassium 3.9 mmol/L (3.5-5.1); Sodium 138 mmol/L (137-145)
[2016-05-26 07:30] LABS: HGB 8.6 gm/dL (11.4-16.0)
[2016-05-26] MEDS ORDERED: PANTOPRAZOLE 40 MG/10 ML VIAL IV SCH (09:00)
[2016-05-26] MEDS ORDERED: MORPHINE SULFATE 4 MG/ML SYRINGE IV PRN (09:46)
--- NOTE | 2016-05-26 09:57 | P.CNPUL ---
History of Present Illness Consult date: 05/26/16 Reason for consult: other Chief complaint: GI bleed, anemia History of present illness: This is a 89-year-old female who presents to the emergency department with coffee ground emesis. Her hemoglobin in the emergency department yesterday was 4.3. She received 3 units of blood. She was transferred up to the ICU. I did speak to the ER doctor Dr. Puneet Diamond. Currently she is doing relatively well. We'll have a EGD done by Dr. Collazo today. She is on O2 at 4 L. She getting an IV appointment 9 at 75 mL an hour. Her hemoglobin this morning was 8.9 up from 4.3. Her primary physician is Dr. Jim east. Other than that she's doing reasonably well. Denies complaints. Was having a bit of abdominal pain but that has settled down. No nausea vomiting or diarrhea. No fever no chills. No chest pain. No shortness of breath. Review of Systems A 12 point review of systems is positive only for coffee-ground emesis. She had a bit of abdominal discomfort and cramping. That settled down. She denies all other complaints of any fever chills cough phlegm production hemoptysis he missed promises hematochezia loss of consciousness chest pain chest discomfort and all other complaints for that matter. Past Medical History Past Medical History: Hypertension Additional Past Medical History / Comment(s): chronic back pain, polyneuropathy, arthritis. 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 She has a cat in the home. She does have a friend that helps her daily. She currently came from [facility] for Rehab. History of Any Multi-Drug Resistant Organisms: None Reported Past Surgical History: Adenoidectomy, Appendectomy, Hysterectomy, Tonsillectomy Past Anesthesia/Blood Transfusion Reactions: No Reported Reaction Additional Past Anesthesia/Blood Transfusion Reaction / Comment(s): current transfusion 3PRBCs 05/25/16 Past Psychological History: Anxiety Smoking Status: Former smoker Past Alcohol Use History: Daily Additional Past Alcohol Use History / Comment(s): patient was a smoker for approximately 43 years. Past Drug Use History: None Reported - Past Family History Mother History Unknown: Yes Family Medical History: Congestive Heart Failure (CHF), Myocardial Infarction ( [place]) Father Family Medical History: Congestive Heart Failure (CHF) Medications and Allergies Home Medications Medication Instructions Recorded Confirmed Type Aspirin 81 mg PO DAILY 02/04/14 05/25/16 History Multivitamin/Iron/Folic Acid 1 tab PO DAILY 02/04/14 05/25/16 History [Centrum Complete Multivit Tab] Alendronate Sodium [Fosamax] 70 mg PO SA 02/08/14 05/25/16 History Fluticasone Nasal [place] [Flonase 1 spray EA NOSTRIL DAILY 05/02/16 05/25/16 History Nasal [place]] Ibuprofen [Motrin] 800 mg PO BID PRN 05/02/16 05/25/16 History Levothyroxine Sodium [Synthroid] 25 mcg PO DAILY 05/02/16 05/25/16 History Gabapentin [Neurontin] 600 mg PO Q8H 05/25/16 05/25/16 History Simethicone Chew [Mylicon Chew] 80 mg PO Q6H PRN 05/25/16 05/25/16 History methylPREDNISolone [Medrol] 4 mg PO DAILY 05/25/16 05/25/16 History oxyCODONE-APAP 5-325MG [Percocet 1 - 2 tab PO Q4HR PRN 05/25/16 05/25/16 History 5-325 mg] Allergies Allergy/AdvReac Type Severity Reaction Status Date / Time Penicillins Allergy Rash/Hives Verified 05/25/16 13:36 Physical Exam Osteopathic Statement: *. No significant issues noted on an osteopathic structural exam other than those noted in the History and Physical/Consult. Vitals: Vital Signs Temp Pulse Pulse Resp BP BP Pulse Ox 05/26/16 07:00 98.5 F 76 24 125/68 99 05/26/16 06:00 79 7 L 127/70 05/26/16 05:00 123 H 24 111/66 05/26/16 04:00 78 24 117/68 05/26/16 03:00 76 19 117/72 97 05/26/16 02:00 77 13 111/65 98 05/26/16 01:00 74 21 129/74 93 L 05/26/16 00:00 97.9 F 81 19 126/74 96 05/25/16 23:00 97.6 F 78 18 122/72 93 L 05/25/16 22:40 82 18 129/72 96 05/25/16 22:30 84 18 131/74 96 05/25/16 22:20 85 16 131/74 98 05/25/16 22:10 79 15 129/76 99 05/25/16 22:00 83 21 136/75 100 05/25/16 21:40 86 16 134/73 99 05/25/16 21:20 81 18 131/72 100 05/25/16 21:10 83 19 127/74 99 05/25/16 21:00 86 17 127/74 100 05/25/16 20:50 87 16 117/65 100 05/25/16 20:45 97.7 F 05/25/16 20:40 80 16 116/72 100 05/25/16 20:30 84 17 121/64 05/25/16 20:25 97.9 F 05/25/16 20:20 92 116/69 90 L 05/25/16 20:15 97.7 F 05/25/16 19:58 98.1 F 84 18 116/69 88 L 05/25/16 19:01 81 26 H 123/66 93 L 05/25/16 19:00 88 18 123/66 97 05/25/16 18:59 96 22 123/66 100 05/25/16 18:58 96 49 H 123/66 91 L 05/25/16 18:57 87 42 H 123/66 91 L 05/25/16 18:56 90 34 H 123/66 05/25/16 18:55 86 25 H 123/66 99 17 18:54 89 23 123/66 05/25/16 18:50 90 21 123/66 100 17 18:40 95 23 127/70 99 05/25/16 18:30 97.6 F 90 20 127/70 100 05/25/16 18:20 93 22 119/76 94 L 17 18:10 91 38 H 122/65 100 17 18:00 97.6 F 100 37 H 118/71 83 L 05/25/16 17:50 98 31 H 118/71 05/25/16 17:40 97.7 F 93 23 120/69 99 17 17:34 90 22 05/25/16 17:30 94 31 H 120/69 93 L 05/25/16 17:27 97.9 F 91 13 119/64 92 L 05/25/16 17:20 92 92 L 05/25/16 17:10 91 98 05/25/16 17:03 98.2 F 93 05/25/16 17:00 97.7 F 95 20 114/57 05/25/16 16:45 97.8 F 88 20 100/58 100 05/25/16 16:30 98.2 F 95 90 24 112/55 122/65 98 05/25/16 16:15 98.0 F 96 20 120/56 100 05/25/16 16:00 97.9 F 98 20 114/54 100 05/25/16 15:45 98.0 F 100 20 108/54 100 05/25/16 15:40 98.0 F 101 H 20 104/52 100 05/25/16 15:30 97.4 F L 100 20 100/51 100 05/25/16 15:20 97.8 F 98 20 95/55 96 05/25/16 15:17 111 H 16 99/52 99 05/25/16 15:12 97.4 F L 100 20 109/54 97 Intake and Output 05/25/16 05/26/16 05/26/16 22:59 06:59 14:59 Intake Total 1110 940 105 Output Total 955 244 85 Balance 155 696 20 Intake: IV 225 75 Sodium Chloride 0.9% 1, 225 75 000 ml @ 75 mls/hr IV . [id number] [facility] Rx#:[id number] Intake, IV Titration 375 Amount Sodium Chloride 0.9% 1, 375 000 ml @ 75 mls/hr IV . [id number] [facility] Rx#:[id number] Oral 490 30 30 Blood Product 620 310 Rc As-3 Unit 0 310 [id number] Rc Pheresis 2 As3 Unit 310 [id number] Rc Pheresis 2 As3 Unit 310 [id number] Output: Urine 955 244 85 Other: Voiding Method Indwelling Catheter Indwelling Catheter Weight 48.9 kg No acute distress, oriented 3. Nasal O2 in place. HEENT examination is unremarkable. Mucous membranes are moist. No oral lesions. Neck supple. Full range of motion. No adenopathy or thyromegaly. Neck veins are flat. Cardiovascular examination reveals regular rhythm rate. S1 and S2 normal. No S3-S4 or murmur. Lungs reveal relatively clear breath sounds. No wheezes or rhonchi. No crackles. Abdomen soft. Bowel sounds are heard. No masses or tenderness. Extremities are intact. No cyanosis clubbing or edema Skin without rash or lesions Neurologic examination is brief and nonfocal. Results - Laboratory Findings CBC and BMP: 05/26/16 05:31 05/26/16 05:31 PT/INR, D-dimer PT 11.7 sec (9.0-12.0) 05/25/16 14:05 INR 1.2 (<1.1) 05/25/16 14:05 Abnormal lab findings: Abnormal Labs 05/25/16 05/25/16 05/26/16 17:05 23:30 05:31 WBC 15.6 H RBC 2.83 L Hgb 8.6 L D Hct 26.4 L RDW 19.5 H Neutrophils # 13.4 H BUN 36 H POC Glucose (mg/dL) 129 H Calcium 7.8 L 05/26/16 05:31 WBC 11.5 H RBC 2.79 L Hgb 8.9 L Hct 26.5 L RDW 20.4 H Neutrophils # BUN POC Glucose (mg/dL) Calcium - Diagnostic Findings Chest x-ray: image reviewed Additional studies: X-rays labs medications are all reviewed. Patient interviewed and examined as above. Assessment and Plan (1) Anemia Status: Acute (2) Upper GI hemorrhage Status: Acute Plan: Plan dated 05/26/2016 The patient will be watched very closely. We'll continue to monitor hemoglobin. The patient will have an EGD by Dr. Herrera today. We'll continue her in the ICU for the time being. Currently her hemodynamics and respiratory status are stable. I review the x-rays labs and medications. Everything seems appropriate. Time with Patient: Greater than 30
[2016-05-26] MEDS: PANTOPRAZOLE 40 MG/10 ML VIAL IV SCH ×2 (10:25→23:12)
--- NOTE | 2016-05-26 10:56 | P.HPIM ---
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 Patient was doing fairly well up until 2 days ago when she said that she was started burping and feeling nauseous. Subsequently she had 2 episodes of dark coffee-ground emesis and started feeling dizzy. Patient denies any abdominal pain. She was given nausea medicine but yesterday she had another large coffee-ground emesis. Patient said that she did not have a bowel movement for the past 3 days. Prior to that her bowel movements were normal. She is taking ibuprofen twice a day to [facility] for her pain. He was transferred to the emergency room after a stat CBC at the [facility] showed a hemoglobin of 4.5. Patient remained hemodynamically stable. She was managed in the ER and was given 3 units of blood transfusion. She is currently admitted to the intensive care unit. She is awake and alert. She does not have any specific concerns or complaints. Review of Systems Review of system: 14 points review of systems were obtained and were negative except to what were mentioned in the HPI. Past Medical History Past Medical History: Hypertension Additional Past Medical History / Comment(s): chronic back pain, polyneuropathy, arthritis. 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 She has a cat in the home. She does have a friend that helps her daily. She currently came from [facility] for Rehab. History of Any Multi-Drug Resistant Organisms: None Reported Past Surgical History: Adenoidectomy, Appendectomy, Hysterectomy, Tonsillectomy Past Anesthesia/Blood Transfusion Reactions: No Reported Reaction Additional Past Anesthesia/Blood Transfusion Reaction / Comment(s): current transfusion 3PRBCs 05/25/16 Past Psychological History: Anxiety Smoking Status: Former smoker Past Alcohol Use History: Daily Additional Past Alcohol Use History / Comment(s): patient was a smoker for approximately 43 years. Past Drug Use History: None Reported - Past Family History Mother History Unknown: Yes Family Medical History: Congestive Heart Failure (CHF), Myocardial Infarction ( [place]) Father Family Medical History: Congestive Heart Failure (CHF) Medications and Allergies Home Medications Medication Instructions Recorded Confirmed Type Aspirin 81 mg PO DAILY 02/04/14 05/25/16 History Multivitamin/Iron/Folic Acid 1 tab PO DAILY 02/04/14 05/25/16 History [Centrum Complete Multivit Tab] Alendronate Sodium [Fosamax] 70 mg PO SA 02/08/14 05/25/16 History Fluticasone Nasal [place] [Flonase 1 spray EA NOSTRIL DAILY 05/02/16 05/25/16 History Nasal [place]] Ibuprofen [Motrin] 800 mg PO BID PRN 05/02/16 05/25/16 History Levothyroxine Sodium [Synthroid] 25 mcg PO DAILY 05/02/16 05/25/16 History Gabapentin [Neurontin] 600 mg PO Q8H 05/25/16 05/25/16 History Simethicone Chew [Mylicon Chew] 80 mg PO Q6H PRN 05/25/16 05/25/16 History methylPREDNISolone [Medrol] 4 mg PO DAILY 05/25/16 05/25/16 History oxyCODONE-APAP 5-325MG [Percocet 1 - 2 tab PO Q4HR PRN 05/25/16 05/25/16 History 5-325 mg] Allergies Allergy/AdvReac Type Severity Reaction Status Date / Time Penicillins Allergy Rash/Hives Verified 05/25/16 13:36 Physical Exam Vitals: Vital Signs Temp Pulse Pulse Resp BP BP Pulse Ox 05/26/16 10:00 96 120 H 114/69 100 05/26/16 09:00 75 51 H 110/65 100 05/26/16 08:00 76 53 H 125/68 100 05/26/16 07:00 98.5 F 76 24 125/68 99 05/26/16 06:00 79 7 L 127/70 05/26/16 05:00 123 H 24 111/66 05/26/16 04:00 78 24 117/68 05/26/16 03:00 76 19 117/72 97 05/26/16 02:00 77 13 111/65 98 05/26/16 01:00 74 21 129/74 93 L 05/26/16 00:00 97.9 F 81 19 126/74 96 05/25/16 23:00 97.6 F 78 18 122/72 93 L 05/25/16 22:40 82 18 129/72 96 05/25/16 22:30 84 18 131/74 96 04/17/17 22:20 85 16 131/74 98 05/25/16 22:10 79 15 129/76 99 05/25/16 22:00 83 21 136/75 100 05/25/16 21:40 86 16 134/73 99 05/25/16 21:20 81 18 131/72 100 05/25/16 21:10 83 19 127/74 99 05/25/16 21:00 86 17 127/74 100 05/25/16 20:50 87 16 117/65 100 05/25/16 20:45 97.7 F 05/25/16 20:40 80 16 116/72 100 05/25/16 20:30 84 17 121/64 05/25/16 20:25 97.9 F 05/25/16 20:20 92 116/69 90 L 05/25/16 20:15 97.7 F 05/25/16 19:58 98.1 F 84 18 116/69 88 L 05/25/16 19:01 81 26 H 123/66 93 L 05/25/16 19:00 88 18 123/66 97 05/25/16 18:59 96 22 123/66 100 05/25/16 18:58 96 49 H 123/66 91 L 05/25/16 18:57 87 42 H 123/66 91 L 05/25/16 18:56 90 34 H 123/66 05/25/16 18:55 86 25 H 123/66 99 05/25/16 18:54 89 23 123/66 05/25/16 18:50 90 21 123/66 100 05/25/16 18:40 95 23 127/70 99 05/25/16 18:30 97.6 F 90 20 127/70 100 05/25/16 18:20 93 22 119/76 94 L 05/25/16 18:10 91 38 H 122/65 100 05/25/16 18:00 97.6 F 100 37 H 118/71 83 L 05/25/16 17:50 98 31 H 118/71 05/25/16 17:40 97.7 F 93 23 120/69 99 17 17:34 90 22 05/25/16 17:30 94 31 H 120/69 93 L 05/25/16 17:27 97.9 F 91 13 119/64 92 L 05/25/16 17:20 92 92 L 05/25/16 17:10 91 98 05/25/16 17:03 98.2 F 93 05/25/16 17:00 97.7 F 95 20 114/57 05/25/16 16:45 97.8 F 88 20 100/58 100 05/25/16 16:30 98.2 F 95 90 24 112/55 122/65 98 05/25/16 16:15 98.0 F 96 20 120/56 100 05/25/16 16:00 97.9 F 98 20 114/54 100 05/25/16 15:45 98.0 F 100 20 108/54 100 05/25/16 15:40 98.0 F 101 H 20 104/52 100 05/25/16 15:30 97.4 F L 100 20 100/51 100 05/25/16 15:20 97.8 F 98 20 95/55 96 05/25/16 15:17 111 H 16 99/52 99 05/25/16 15:12 97.4 F L 100 20 109/54 97 Intake and Output 05/25/16 05/26/16 05/26/16 22:59 06:59 14:59 Intake Total 1110 940 330 Output Total 955 244 190 Balance 155 696 140 Intake: IV 225 300 Sodium Chloride 0.9% 1, 225 300 000 ml @ 75 mls/hr IV . [id number] [facility] Rx#:[id number] Intake, IV Titration 375 Amount Sodium Chloride 0.9% 1, 375 000 ml @ 75 mls/hr IV . [id number] [facility] Rx#:[id number] Oral 490 30 30 Blood Product 620 310 Rc As-3 Unit 0 310 [id number] Rc Pheresis 2 As3 Unit 310 [id number] Rc Pheresis 2 As3 Unit 310 [id number] Output: Urine 955 244 190 Other: Voiding Method Indwelling Catheter Indwelling Catheter Weight 48.9 kg 53.9 kg General: The patient is awake and alert, in no distress, and does not appear acutely ill. Eye: extra-ocular movements are intact; there is normal conjunctiva bilaterally. . Neck: The neck is supple, there is no tenderness or JVD. Cardiovascular: Normal S1-S2, no S3-S4, no murmurs. Respiratory: Lungs clear to auscultation bilaterally with no wheezes rhonchi or rales. Gastrointestinal: Abdomen is soft, nontender, nondistended, with no organomegaly. . Musculoskeletal: Normal ROM, no tenderness, There is no pedal edema. Neurological: There are no obvious motor or sensory deficits. Speech is normal. Skin: Skin is warm and dry and no rashes or lesions are noted. Results CBC & Chem 7: 05/26/16 05:31 05/26/16 05:31 Labs: Abnormal Lab Results - Last 24 Hours (Table) 05/25/16 05/25/16 05/26/16 Range/Units 17:05 23:30 05:31 WBC 15.6 H (3.8-10.6) k/uL RBC 2.83 L (3.80-5.40) m/uL Hgb 8.6 L D (11.4-16.0) gm/dL Hct 26.4 L (34.0-46.0) % RDW 19.5 H (11.5-15.5) % Neutrophils # 13.4 H (1.3-7.7) k/uL BUN 36 H (7-17) mg/dL POC Glucose (mg/dL) 129 H (75-99) mg/dL Calcium 7.8 L (8.4-10.2) mg/dL 05/26/16 Range/Units 05:31 WBC 11.5 H (3.8-10.6) k/uL RBC 2.79 L (3.80-5.40) m/uL Hgb 8.9 L (11.4-16.0) gm/dL Hct 26.5 L (34.0-46.0) % RDW 20.4 H (11.5-15.5) % Neutrophils # (1.3-7.7) k/uL BUN (7-17) mg/dL POC Glucose (mg/dL) (75-99) mg/dL Calcium (8.4-10.2) mg/dL Thrombosis Risk Factor Assmnt - Choose All That Apply Any of the Below Risk Factors Present?: Yes Each Factor Represents 1 point: Age 41-60 years Other Risk Factors: Yes Each Risk Factor Represents 2 Points: Age 61-74 years Each Risk Factor Represents 3 Points: Age 75 years or older Thrombosis Risk Factor Assessment Total Risk Factor Score: 6 Thrombosis Risk Factor Assessment Level: High Risk Assessment and Plan Plan: 1. Upper GI bleed 2. Acute blood loss anemia status post 3 units of PRBC transfusion 3. Hypothyroidism, maintained on Synthroid 4. 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 Leukocytosis most likely reactive This is a 89-year-old female who presented to the hospital with upper GI bleed and was found to have a hemoglobin of 4.5. She remained hemodynamically stable. She received 3 units of blood transfusion since admission. She is currently monitored closely in the intensive care unit. She was seen and evaluated by GI and plan to proceed with the EGD today. We will continue supportive care otherwise. IV Protonix twice daily. Repeat lab work in the morning.
[2016-05-26 11:50] LABS: Anisocytosis Moderate; CH 31.5; CHCM 32.7; HCT 26.3 % (34.0-46.0); HDW 3.81; HGB 8.8 gm/dL (11.4-16.0); Hypochromasia Slight; MCH 32.7 pg (25.0-35.0); MCHC 33.5 g/dL (31.0-37.0); MCV 97.5 fL (80.0-100.0); Macrocytosis Slight; Poikilocytosis Slight; RDW 20.7 % (11.5-15.5); WBC 11.3 k/uL (3.8-10.6)
[2016-05-26 13:04] LABS: Glucose,Whole Blood 98 mg/dL (75-99)
[2016-05-26] MEDS ORDERED: PROPOFOL 10 MG/ML 20 ML VIAL IV ONE (17:36)
[2016-05-26] MEDS ORDERED: IV FLUID CONTINUATION 600 ML IV ONE (17:37)
--- NOTE | 2016-05-26 17:58 | P.PCN ---
Date of Procedure: 05/26/16 Procedure(s) Performed: BRIEF HISTORY: Patient is a 89-year-old, pleasant, white female, scheduled for an upper endoscopy as a part of evaluation of coffee-ground emesis for the last 2 days' duration. She presents to the emergency room and was noted to have a hemoglobin of 5.5 requiring 3 units of transfusion. Her last hemoglobin was 8.8 g/dL.. PROCEDURE PERFORMED: Esophagogastroduodenoscopy with biopsy. PREOPERATIVE DIAGNOSIS: Severe anemia and upper GI bleed. IV sedation per anesthesia. PROCEDURE: After informed consent was obtained, the patient was brought into the endoscopy unit. IV sedation was administered by Anesthesia under continuous monitoring. Initially the Olympus GIF-140 video endoscope was inserted into the mouth. Esophagus intubated without any difficulty. It was gradually advanced into the stomach and duodenum and carefully examined. The bulb and the second part of the duodenum appeared normal. The scope at this time was withdrawn to the stomach, adequately insufflated with air, and upon careful examination, mucosa of the antrum, there was a 2 cm clean-based ulcer with no active bleeding and biopsies were done from this area. The body of the stomach appeared normal. In the cardia of the stomach suggestive distal to the hiatal hernia there was a 3 cm clean-based ulcer identified and multiple biopsies were done from the margin of the ulcer. The fundus appeared normal. The scope was then withdrawn into the esophagus. The GE junction was located at 33 cm from the incisors. The esophagus appeared normal. There were no erosions or ulcerations seen and the patient tolerated the procedure well. IMPRESSION: 1. 3 cm gastric ulcer in the cardia of the stomach just distal to the hiatal hernial sac with no active bleeding status post biopsy 2. 2 cm antral ulcer status post biopsy. 3. Small to moderate size hiatal hernia. RECOMMENDATIONS: The findings of this examination were discussed with the patient. She will be started on clear liquid diet and will be advanced as tolerated. Continue on Protonix 40 mg every 12 hours and repeat CBC in the morning.
[2016-05-26 18:37] LABS: Glucose,Whole Blood 79 mg/dL (75-99)
--- NOTE | 2016-05-26 19:47 | PCN ---
DATE OF PROCEDURE: 05/26/2016 LEFT RADIAL ARTERIAL LINE PLACEMENT Indication: Hemodynamic monitoring. A time-out was completed verifying correct patient, procedure, site, positioning, and implant(s) or special equipment if applicable. [place]'s test was performed to ensure adequate perfusion. The patient's left wrist was prepped and draped in sterile fashion. Lidocaine 1% was used to anesthetize the area. An 18G Arrow arterial line was introduced into the radial artery. The catheter was threaded over the guidewire and the needle was removed with appropriate pulsatile blood return. Blood loss was minimal. The catheter was then sutured in place to the skin and a sterile dressing applied. Perfusion to the extremity distal to the point of catheter insertion was checked and found to be adequate. The patient tolerated the procedure well and there were no complications. ZAIDA
[2016-05-26] MEDS: GABAPENTIN 300 MG CAP PO SCH (20:33)
[2016-05-26] MEDS: LEVOTHYROXINE 25 MCG TAB PO SCH (23:14)
[2016-05-26] MEDS: ALPRAZolam 0.25 MG TAB PO PRN (23:24)
[2016-05-27] MEDS: LEVOTHYROXINE 25 MCG TAB PO SCH (06:45)
[2016-05-27] MEDS: GABAPENTIN 300 MG CAP PO SCH ×3 (06:45→21:36)
[2016-05-27] MEDS: SODIUM CHLORIDE 0.9% 1,000 ML IV SCH (06:46)
[2016-05-27 07:07] LABS: Anisocytosis Moderate; Basophils % (A) 1 %; CHCM 31.4; Eosinophils # (A) 0.3 k/uL (0-0.7); Eosinophils % (A) 3 %; HCT 28.5 % (34.0-46.0); HDW 3.77; HGB 9.3 gm/dL (11.4-16.0); Hypochromasia Moderate; Luc # (Auto) 0.07; Luc % (Auto) 1; Lymphocytes # (A) 0.5 k/uL (1.0-4.8); Lymphocytes % (A) 6 %; MCH 32.6 pg (25.0-35.0); MCHC 32.6 g/dL (31.0-37.0); MCV 100.2 fL (80.0-100.0); Macrocytosis Slight; Mean Platelet Volume 7.5; Monocytes # (A) 0.4 k/uL (0-1.0); Monocytes % (A) 5 %; Neutrophils # (A) 7.2 k/uL (1.3-7.7); Neutrophils % (A) 85 %; Poikilocytosis Slight; RBC 2.84 m/uL (3.80-5.40); RDW 21.6 % (11.5-15.5); WBC 8.5 k/uL (3.8-10.6); WBC (Perox) 8.73
[2016-05-27 07:28] LABS: Anion Gap 8 mmol/L; Blood Urea Nitrogen 18 mg/dL (7-17); Calcium 7.3 mg/dL (8.4-10.2); Carbon Dioxide 19 mmol/L (22-30); Chloride 112 mmol/L (98-107); Glucose 78 mg/dL (74-99); Magnesium 1.9 mg/dL (1.6-2.3); Non-African American GFR(MDRD) >60 (>60 ml/min/1.73 sqM); Phosphorous 2.5 mg/dL (2.5-4.5); Sodium 139 mmol/L (137-145)
[2016-05-27 07:48] LABS: Potassium 4.1 mmol/L (3.5-5.1)
[2016-05-27] MEDS: PANTOPRAZOLE 40 MG/10 ML VIAL IV SCH ×2 (09:02→20:46)
[2016-05-27] MEDS: MORPHINE SULFATE 4 MG/ML SYRINGE IV PRN (09:30)
--- NOTE | 2016-05-27 10:11 | PN ---
DATE OF SERVICE: 05/27/2016 Patient is an 89-year-old pleasant lady admitted to the hospital with severe symptomatic anemia with a hemoglobin of 5 and coffee-ground emesis. She underwent an upper endoscopy yesterday that showed 2 cm antral ulcer and 3 cm ulcer in the cardia of the stomach both of which were biopsied, but there was no active bleeding. She has been on Protonix 40 mg IV q.12 hours. She was started on clear liquid diet yesterday and this morning is on a full liquid diet, tolerating well. She denies any abdominal pain and no further episodes of nausea or vomiting. On physical examination, she appears comfortable in no apparent distress. Vital signs are stable. Blood pressure is 118/62, pulse rate 78, and temperature 97.9. HEENT EXAMINATION: Unremarkable. Conjunctivae pink. Sclerae anicteric. Oral cavity, no lesions. NECK: No JVD or lymph node enlargement. Chest was clear to auscultation. HEART: Regular rate and rhythm. ABDOMEN: Soft. It was nontender, nondistended. Bowel sounds are positive. No organomegaly. EXTREMITIES: No pedal edema. SKIN: No rashes. NEURO: She is alert and oriented x3. No focal deficits. LABS: From today hemoglobin is 9.3, WBC 8.5, and platelets are normal. BUN is 18, creatinine 0.41. IMPRESSION: Acute upper gastrointestinal bleed and severe symptomatic anemia secondary to peptic ulcer disease. EGD done yesterday showed an antral ulcer as well as ulcer in the proximal body of the stomach, both of which were biopsied, probably ( ). RECOMMENDATIONS: 1. Advance diet as tolerated. 2. Continue Protonix 40 mg b.i.d. 3. Can be discharged to the [facility] today or tomorrow with an outpatient follow up in a week.
--- NOTE | 2016-05-27 12:19 | P.PN ---
Subjective Principal diagnosis: Upper GI bleed Patient is doing well today. No evidence of ongoing bleed. Hemoglobin stable. Tolerating liquid diet with no problems. Continue to complain of low back pain. Objective - Vital Signs Vital signs: Vital Signs Temp 96 F L 05/27/16 11:49 Pulse 75 05/27/16 11:49 Resp 20 05/27/16 11:49 BP 131/66 05/27/16 11:49 Pulse Ox 91 L 05/27/16 11:49 Intake & Output 05/26/16 05/27/16 05/27/16 18:59 06:59 18:59 Intake Total 1030 450 840 Output Total 690 400 200 Balance 340 50 640 Weight 53.9 kg 54 kg Intake: IV 1000 450 600 Sodium Chloride 0.9% 1, 900 450 600 000 ml @ 75 mls/hr IV . [id number] [facility] Rx#:[id number] Oral 30 240 Output: Urine 690 400 200 Uretheral (David) 200 Other: Voiding Method Indwelling Catheter Indwelling Catheter Indwelling Catheter # Voids 1 - Exam General: The patient is awake and alert, in no distress Eye: there is normal conjunctiva bilaterally. Neck: The neck is supple, there is no JVD. Cardiovascular: Normal S1-S2, no S3-S4, no murmurs. Respiratory: Lungs clear to auscultation bilaterally Gastrointestinal: Abdomen is soft, nontender Musculoskeletal: There is no pedal edema. Neurological:. Speech is normal. Skin: Skin is warm and dry - Labs CBC & Chem 7: 05/27/16 06:22 05/27/16 06:22 Labs: Abnormal Lab Results - Last 24 Hours (Table) 05/27/16 05/27/16 Range/Units 06:22 06:22 RBC 2.84 L (3.80-5.40) m/uL Hgb 9.3 L (11.4-16.0) gm/dL Hct 28.5 L (34.0-46.0) % MCV 100.2 H (80.0-100.0) fL RDW 21.6 H (11.5-15.5) % Lymphocytes # 0.5 L (1.0-4.8) k/uL Chloride 112 H (98-107) mmol/L Carbon Dioxide 19 L (22-30) mmol/L BUN 18 H (7-17) mg/dL Creatinine 0.41 L (0.52-1.04) mg/dL Calcium 7.3 L (8.4-10.2) mg/dL Assessment and Plan Plan: 1. Upper GI bleed 2. Acute blood loss anemia status post 3 units of PRBC transfusion 3. Hypothyroidism, maintained on Synthroid 4. 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 Leukocytosis most likely reactive This is a 89-year-old female who presented to the hospital with upper GI bleed and was found to have a hemoglobin of 4.5. She remained hemodynamically stable. She received 3 units of blood transfusion since admission. She was seen and evaluated by GI and underwent an EGD showing 2 gastric ulcers with no ongoing bleed. Biopsy obtained and pending. We will continue supportive care otherwise. IV Protonix twice daily. Repeat lab work in the morning. Advance diet as directed by GI. Given ongoing low back pain, I would consult pain management for further evaluation. Patient was seen by pain management during last admission and plan was to proceed with possible steroids injections. I would switch her pain medication back to her oral regimen. We will continue to monitor closely.
[2016-05-27] MEDS: oxyCODONE-APAP 10-325MG 1 EACH TAB PO PRN ×3 (12:52→20:45)
--- NOTE | 2016-05-27 16:42 | P.PN ---
Subjective 89-year-old female who we saw in consultation in the ICU yesterday. The patient came in with complaints of coffee-ground emesis. Her hemoglobin in the emergency room was down to 4.3. She received 3 units of blood. She was transferred to the ICU. She was transferred out of the ICU late last night. I spoke to the nurse about her. Doing relatively well. Relatively stable. She is 89 years of age. No additional active bleeding. Hemodynamically stable. No respiratory issues. Objective - Vital Signs Vital signs: Vital Signs Temp 97.1 F L 05/27/16 15:32 Pulse 83 05/27/16 15:32 Resp 20 05/27/16 15:32 BP 146/74 05/27/16 15:32 Pulse Ox 93 L 05/27/16 15:32 Intake & Output 05/26/16 05/27/16 05/27/16 18:59 06:59 18:59 Intake Total 2673 428 9140 Output Total 690 400 520 Balance 340 50 680 Weight 53.9 kg 54 kg Intake: IV 1000 450 600 Sodium Chloride 0.9% 1, 900 450 600 000 ml @ 75 mls/hr IV . [id number] [facility] Rx#:[id number] Oral 30 600 Output: Urine 690 400 250 Uretheral (David) 200 Post Void Residual 270 Other: Voiding Method Indwelling Catheter Indwelling Catheter Indwelling Catheter # Voids 50 - Exam No acute distress, oriented 3. HEENT examination is grossly unremarkable. Mucous membranes are now moist. No oral lesions. Neck supple. Full range of motion. No adenopathy or thyromegaly. Cardio vascular examination reveals regular rhythm rate. S1 and S2 normal. No S3-S4 murmur Lungs are clear breath sounds are equal. No wheezes rhonchi or crackles Abdomen soft bowel sounds are heard. Extremities are intact. No cyanosis clubbing or edema Skin without rash or lesion Neurologic examination is pretty but nonfocal. - Labs CBC & Chem 7: 05/27/16 06:22 05/27/16 06:22 Labs: Abnormal Lab Results - Last 24 Hours (Table) 05/27/16 05/27/16 Range/Units 06:22 06:22 RBC 2.84 L (3.80-5.40) m/uL Hgb 9.3 L (11.4-16.0) gm/dL Hct 28.5 L (34.0-46.0) % MCV 100.2 H (80.0-100.0) fL RDW 21.6 H (11.5-15.5) % Lymphocytes # 0.5 L (1.0-4.8) k/uL Chloride 112 H (98-107) mmol/L Carbon Dioxide 19 L (22-30) mmol/L BUN 18 H (7-17) mg/dL Creatinine 0.41 L (0.52-1.04) mg/dL Calcium 7.3 L (8.4-10.2) mg/dL Assessment and Plan (1) Anemia Status: Acute (2) Upper GI hemorrhage Status: Acute Plan: Plan dated 05/26/2016 The patient will be watched very closely. We'll continue to monitor hemoglobin. The patient will have an EGD by Dr. Herrera today. We'll continue her in the ICU for the time being. Currently her hemodynamics and respiratory status are stable. I review the x-rays labs and medications. Everything seems appropriate. Plan dated 05/27/2016. Patient's doing well. Apparently scheduled to have a procedure today to evaluate her upper GI tract. We'll continue to follow. Prognosis is guarded given her age and comorbidities. Additional recommendations are made at this time. Time with Patient: Less than 30
[2016-05-27] MEDS: ALPRAZolam 0.25 MG TAB PO PRN (20:46)
[2016-05-28 03:08] VITALS: RESP 16
[2016-05-28] MEDS: GABAPENTIN 300 MG CAP PO SCH ×4 (05:31→23:27)
[2016-05-28] MEDS: LEVOTHYROXINE 25 MCG TAB PO SCH (05:31)
[2016-05-28] MEDS: oxyCODONE-APAP 10-325MG 1 EACH TAB PO PRN ×2 (05:31→20:57)
[2016-05-28 07:30] LABS: Anisocytosis Moderate; CH 31.4; CHCM 31.1; HCT 31.8 % (34.0-46.0); HDW 3.48; HGB 9.9 gm/dL (11.4-16.0); Hypochromasia Moderate; MCH 31.8 pg (25.0-35.0); MCHC 31.1 g/dL (31.0-37.0); MCV 102.4 fL (80.0-100.0); Macrocytosis Moderate; Mean Platelet Volume 6.9; Poikilocytosis Slight; RBC 3.11 m/uL (3.80-5.40); RDW 21.7 % (11.5-15.5); WBC 7.4 k/uL (3.8-10.6)
[2016-05-28 07:35] LABS: Anion Gap 3 mmol/L; Blood Urea Nitrogen 11 mg/dL (7-17); Calcium 7.6 mg/dL (8.4-10.2); Carbon Dioxide 22 mmol/L (22-30); Chloride 111 mmol/L (98-107); Glucose 83 mg/dL (74-99); Magnesium 1.9 mg/dL (1.6-2.3); Non-African American GFR(MDRD) >60 (>60 ml/min/1.73 sqM); Phosphorous 2.4 mg/dL (2.5-4.5); Potassium 4.2 mmol/L (3.5-5.1); Sodium 136 mmol/L (137-145)
[2016-05-28] MEDS: PANTOPRAZOLE 40 MG/10 ML VIAL IV SCH ×2 (09:59→22:44)
--- NOTE | 2016-05-28 11:30 | P.PN ---
Subjective Principal diagnosis: symptomatic anemia coffee-ground emesis 89-year-old female admitted with acute upper GI bleed with symptomatic anemia coffee-ground emesis status post EGD with findings of 2 cm antral ulcer and 3 cm ulcer in the cardia of the stomach without active bleeding. Tolerating full liquid diet. No reepisodes of hematemesis hematochezia or melena. hemoglobin 9.9. Objective - Vital Signs Vital signs: Vital Signs Temp 97.1 F L 05/28/16 08:00 Pulse 73 05/28/16 08:00 Resp 16 05/28/16 08:00 BP 100/60 05/28/16 08:00 Pulse Ox 94 L 05/28/16 08:00 Intake & Output 05/27/16 05/28/16 05/28/16 18:59 06:59 18:59 Intake Total 1440 740 600 Output Total 520 Balance 920 740 600 Intake: IV 600 Sodium Chloride 0.9% 1, 600 000 ml @ 75 mls/hr IV . [id number] [facility] Rx#:[id number] Oral 840 740 600 Output: Urine 250 Uretheral (Advid) 200 Post Void Residual 270 Other: Voiding Method Indwelling Catheter Bedside Commode Bedside Commode # Voids 50 - Exam General appearance: The patient is alert, oriented, in no acute distress. HET: Head is normocephalic and atraumatic. Pupils are equal and reactive. Oropharynx is clear without lesions. Neck: Supple without lymphadenopathy. Trachea midline. Heart: S1 S2. Regular rate and rhythm. Lungs: No crackles or wheezes are heard. Abdomen: Soft, nontender, nondistended with bowel sounds. No peritoneal signs. No palpable organomegaly or masses. Extremities: Normal skin color and turgor. No cyanosis, rash, ulceration, clubbing, or edema. Radial and pedal pulses are 2/4 bilaterally. Neurological: No focal deficits. Strength and sensation are grossly intact. - Labs CBC & Chem 7: 05/28/16 07:08 05/28/16 07:08 Labs: Abnormal Lab Results - Last 24 Hours (Table) 05/28/16 05/28/16 Range/Units 07:08 07:08 RBC 3.11 L (3.80-5.40) m/uL Hgb 9.9 L (11.4-16.0) gm/dL Hct 31.8 L (34.0-46.0) % MCV 102.4 H (80.0-100.0) fL RDW 21.7 H (11.5-15.5) % Sodium 136 L (137-145) mmol/L Chloride 111 H (98-107) mmol/L Creatinine 0.43 L (0.52-1.04) mg/dL Calcium 7.6 L (8.4-10.2) mg/dL Phosphorus 2.4 L (2.5-4.5) mg/dL Assessment and Plan (1) Upper GI hemorrhage Narrative/Plan: secondary to antral and gastric cardia nonbleeding ulcers status post EGD Status: Acute (2) Acute blood loss anemia Status: Acute Plan: 1. Advance diet, 2. DC per medicine. 3. RTO 1-2 weeks. 4. Protonix 40 mg daily. 5. Avoid NSAIDS/ASA. Assessment and plan of care discussed with Dr. Johnson
--- NOTE | 2016-05-28 12:45 | P.PN ---
Subjective Principal diagnosis: Upper GI bleed Patient is doing well today. Hemoglobin is stable. No evidence of bleeding. Continue to complain of back pain. Objective - Vital Signs Vital signs: Vital Signs Temp 97.1 F L 05/28/16 08:00 Pulse 73 05/28/16 08:00 Resp 16 05/28/16 08:00 BP 100/60 05/28/16 08:00 Pulse Ox 94 L 05/28/16 08:00 Intake & Output 05/27/16 05/28/16 05/28/16 18:59 06:59 18:59 Intake Total 1440 740 600 Output Total 520 Balance 920 740 600 Intake: IV 600 Sodium Chloride 0.9% 1, 600 000 ml @ 75 mls/hr IV . [id number] [facility] Rx#:[id number] Oral 840 740 600 Output: Urine 250 Uretheral (David) 200 Post Void Residual 270 Other: Voiding Method Indwelling Catheter Bedside Commode Bedside Commode # Voids 50 - Exam General: The patient is awake and alert, in no distress Eye: there is normal conjunctiva bilaterally. Neck: The neck is supple, there is no JVD. Cardiovascular: Normal S1-S2, no S3-S4, no murmurs. Respiratory: Lungs clear to auscultation bilaterally Gastrointestinal: Abdomen is soft, nontender Musculoskeletal: There is no pedal edema. Neurological:. Speech is normal. Skin: Skin is warm and dry - Labs CBC & Chem 7: 05/28/16 07:08 05/28/16 07:08 Labs: Abnormal Lab Results - Last 24 Hours (Table) 05/28/16 05/28/16 Range/Units 07:08 07:08 RBC 3.11 L (3.80-5.40) m/uL Hgb 9.9 L (11.4-16.0) gm/dL Hct 31.8 L (34.0-46.0) % MCV 102.4 H (80.0-100.0) fL RDW 21.7 H (11.5-15.5) % Sodium 136 L (137-145) mmol/L Chloride 111 H (98-107) mmol/L Creatinine 0.43 L (0.52-1.04) mg/dL Calcium 7.6 L (8.4-10.2) mg/dL Phosphorus 2.4 L (2.5-4.5) mg/dL Assessment and Plan Plan: 1. Upper GI bleed 2. Acute blood loss anemia status post 3 units of PRBC transfusion 3. Hypothyroidism, maintained on Synthroid 4. 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 Leukocytosis most likely reactive This is a 89-year-old female who presented to the hospital with upper GI bleed and was found to have a hemoglobin of 4.5. She remained hemodynamically stable. She received 3 units of blood transfusion since admission. She was seen and evaluated by GI and underwent an EGD showing 2 gastric ulcers with no ongoing bleed. Biopsy obtained and pending. We will continue supportive care otherwise. IV Protonix twice daily. Repeat lab work in the morning. Advance diet as directed by GI. Given ongoing low back pain, pain management consulted and planned for epidural injection today. We will continue to monitor closely. Patient and her [employer] MEMBER were updated today about her clinical condition. She will return back to [facility] possibly tomorrow. Plan to discontinue aspirin and ibuprofen upon discharge.
--- NOTE | 2016-05-28 13:07 | P.PN ---
Subjective 89-year-old female who we saw in consultation in the ICU yesterday. The patient came in with complaints of coffee-ground emesis. Her hemoglobin in the emergency room was down to 4.3. She received 3 units of blood. She was transferred to the ICU. She was transferred out of the ICU late last night. I spoke to the nurse about her. Doing relatively well. Relatively stable. She is 89 years of age. No additional active bleeding. Hemodynamically stable. No respiratory issues. Progress note dated 05/28/2016 89-year-old female who was admitted with a diabetic diagnosis of GI bleed. Her hemoglobin was 4.3 on admission. EGD revealed 2 large nonbleeding gastric ulcers. The patient seemed be doing relatively well. Eating regular food. No particular complaints complaints. No nausea vomiting. No vomiting up any blood. No black tarry stools. No coffee-ground emesis. Patient is feeling better. No respiratory issues. Blood pressure has been stable. Objective - Vital Signs Vital signs: Vital Signs Temp 97.1 F L 05/28/16 08:00 Pulse 73 05/28/16 08:00 Resp 16 05/28/16 08:00 BP 100/60 05/28/16 08:00 Pulse Ox 94 L 05/28/16 08:00 Intake & Output 05/27/16 05/28/16 05/28/16 18:59 06:59 18:59 Intake Total 1440 740 600 Output Total 520 Balance 920 740 600 Intake: IV 600 Sodium Chloride 0.9% 1, 600 000 ml @ 75 mls/hr IV . [id number] [facility] Rx#:[id number] Oral 840 740 600 Output: Urine 250 Uretheral (David) 200 Post Void Residual 270 Other: Voiding Method Indwelling Catheter Bedside Commode Bedside Commode # Voids 50 - Exam No acute distress, oriented 3. HEENT examination is grossly unremarkable. Mucous membranes are now moist. No oral lesions. Neck supple. Full range of motion. No adenopathy or thyromegaly. Cardio vascular examination reveals regular rhythm rate. S1 and S2 normal. No S3-S4 murmur Lungs are clear breath sounds are equal. No wheezes rhonchi or crackles Abdomen soft bowel sounds are heard. No masses or tenderness Extremities are intact. No cyanosis clubbing or edema Skin without rash or lesion Neurologic examination is pretty but nonfocal. - Labs CBC & Chem 7: 05/28/16 07:08 05/28/16 07:08 Labs: Abnormal Lab Results - Last 24 Hours (Table) 05/28/16 05/28/16 Range/Units 07:08 07:08 RBC 3.11 L (3.80-5.40) m/uL Hgb 9.9 L (11.4-16.0) gm/dL Hct 31.8 L (34.0-46.0) % MCV 102.4 H (80.0-100.0) fL RDW 21.7 H (11.5-15.5) % Sodium 136 L (137-145) mmol/L Chloride 111 H (98-107) mmol/L Creatinine 0.43 L (0.52-1.04) mg/dL Calcium 7.6 L (8.4-10.2) mg/dL Phosphorus 2.4 L (2.5-4.5) mg/dL Assessment and Plan (1) Anemia Status: Acute (2) Upper GI hemorrhage Status: Acute Plan: Plan dated 05/26/2016 The patient will be watched very closely. We'll continue to monitor hemoglobin. The patient will have an EGD by Dr. Herrera today. We'll continue her in the ICU for the time being. Currently her hemodynamics and respiratory status are stable. I review the x-rays labs and medications. Everything seems appropriate. Plan dated 05/27/2016. Patient's doing well. Apparently scheduled to have a procedure today to evaluate her upper GI tract. We'll continue to follow. Prognosis is guarded given her age and comorbidities. Additional recommendations are made at this time. Plan dated 05/28/2016 The patient seemed to do relatively well. Less short of breath. Not having any abdominal pain. He will seems to be stable. Labs x-rays medications are all reviewed. The patient did mention something today about an epidural injection. I'm not aware that. We'll continue to follow. Time with Patient: Less than 30
--- NOTE | 2016-05-28 16:29 | P.CONS ---
History of Present Illness - Reason for Consult Consult date: 05/28/16 - History of Present Illness This is a 30 years old female with a chronic history of severe low back pain, with radiation to the lower extremity patient was seen previously as an inpatient few weeks ago, and she was diagnosed with lumbar spinal stenosis ,and she is supposed to be scheduled as an outpatient,Have lumbar epidural steroid injection, patient admitted recently because of GI bleed but also she is having severe low back pain for this reason management consultation was done , patient is not a surgical candidate, he was already seen during her previous admission by orthopedic surgeon and report that she is not a candidate for surgery, the pain interfere with her quality of life and she is not able to ambulate because of her pain Past Medical History Past Medical History: Hypertension Additional Past Medical History / Comment(s): chronic back pain, polyneuropathy, arthritis. 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 She has a cat in the home. She does have a friend that helps her daily. She currently came from [facility] for Rehab. History of Any Multi-Drug Resistant Organisms: None Reported Past Surgical History: Adenoidectomy, Appendectomy, Hysterectomy, Tonsillectomy Past Anesthesia/Blood Transfusion Reactions: No Reported Reaction Additional Past Anesthesia/Blood Transfusion Reaction / Comm: current transfusion 3PRBCs 05/25/16 Past Psychological History: Anxiety Smoking Status: Former smoker Past Alcohol Use History: Daily Additional Past Alcohol Use History / Comment(s): patient was a smoker for approximately 43 years. Past Drug Use History: None Reported - Past Family History Mother History Unknown: Yes Family Medical History: Congestive Heart Failure (CHF), Myocardial Infarction ( [place]) Father Family Medical History: Congestive Heart Failure (CHF) Medications and Allergies Home Medications Medication Instructions Recorded Confirmed Type Aspirin 81 mg PO DAILY 02/04/14 05/28/16 History Multivitamin/Iron/Folic Acid 1 tab PO DAILY 02/04/14 05/28/16 History [Centrum Complete Multivit Tab] Alendronate Sodium [Fosamax] 70 mg PO SA 02/08/14 05/28/16 History Fluticasone Nasal [place] [Flonase 1 spray EA NOSTRIL DAILY 05/02/16 05/28/16 History Nasal [place]] Ibuprofen [Motrin] 800 mg PO BID PRN 05/02/16 05/28/16 History Levothyroxine Sodium [Synthroid] 25 mcg PO DAILY 05/02/16 05/28/16 History Gabapentin [Neurontin] 600 mg PO Q8H 05/25/16 05/28/16 History Simethicone Chew [Mylicon Chew] 80 mg PO Q6H PRN 05/25/16 05/28/16 History methylPREDNISolone [Medrol] 4 mg PO DAILY 05/25/16 05/28/16 History oxyCODONE-APAP 5-325MG [Percocet 1 - 2 tab PO Q4HR PRN 05/25/16 05/28/16 History 5-325 mg] Allergies Allergy/AdvReac Type Severity Reaction Status Date / Time Penicillins Allergy Rash/Hives Verified 05/25/16 13:36 Physical Exam Vitals: Vital Signs Temp Pulse Pulse Pulse Pulse Resp BP 05/28/16 14:17 97.1 F L 79 70 81 16 05/28/16 14:15 79 81 16 05/28/16 08:00 97.1 F L 73 16 05/28/16 03:08 97.6 F 68 16 05/28/16 01:13 97.7 F 80 130/66 05/28/16 00:00 18 05/27/16 20:00 97.7 F 83 18 BP Pulse Ox 05/28/16 14:17 119/60 96 05/28/16 14:15 119/60 96 05/28/16 08:00 100/60 94 L 05/28/16 03:08 119/62 91 L 05/28/16 01:13 05/28/16 00:00 05/27/16 20:00 127/73 92 L Intake and Output 05/28/16 05/28/16 05/28/16 06:59 14:59 22:59 Intake Total 740 600 Balance 740 600 Intake: Oral 740 600 Other: Voiding Method Bedside Commode Bedside Commode Social history : not smoker , NO ETOH , NO Illegal drugs us Review of Systems : 1- Constitutional : no chills , no fever , no night sweats , 2- Ears : no ear discharge , no change in hearing 3-Nose, Mouth ,Throat ; no bleeding gums, no sore throat , no epistaxis , 4-Cardiovascular : Denies chest pain, , no orthopnea , no palpitation 5-Respiratory : Denies cough , no dyspnea , no hemoptysis 6-Gastrointestinal :, no change in bowel habits , no coffee- ground emesis . 7-Genitourinary : No hematuria , no discharge , no incontinence, 8-Musculoskeletal : No gait dysfunction , report low back pain , 9- Neurological : no ataxia , no tremor , no sezure , 10-Psychatric , no suicidal ideation no hallucination 11- Endocrine : no cold intolerence , no polyuria , no polydypsia , 12-Hematologic : no easy bleeding , no easy brusing , 13-Allergic / immunology : no angioedema , no wheezing ,no allergic rhinitis 14-Integumentary : no brttle nails , no change hair / nails , no foot/leg ulcers . Physical Examinations : 1-Constitutional : Cooperative , not in acute distress . 2-HEENT : nech ; supple , no Lymphadenopathy , no Thyromegaly , :eyes , no icterus, no photophobia . ENT : , normal oropharynx , no Thrush 3- Respiratory : Chest clear to auscultations Bilaterally , no wheezing . 4- Cardiovascular : regular rate and rhythem , S1 , S2 , no S3 , no S4. 5- Gastrointestinal: abdomen soft no tenderness , no organomegally . 6- Genitourinary : Defferred . 7-Integumentary : No cellulitis , no ulcers , normal skin turgor , no cyanotic . 8- neurologic : Cranial nerve II to XII intact , no focal neurological deffecit 9-psychatric : alert , oriented X 3 , appropriate affect , intact judgment and insight . 10-Lymphatic : no Lymphadenopathy. 11- musculoskeltal: exams of the Lumber spine = moter stegnth lower extremities , thigh and legs 3-4/5 Right side , 3-4/5 Left side deep tendon reflexes : normal Knee Jerk , normal ankle Jerk positive lumber facet Loading Test Range of motion of the lumbar spine Flexion 30 degrees, extension 10 degrees strait leg raising test , positive at 30 degree Fabere test positive RT and positive LT . Results CBC & Chem 7: 05/28/16 07:08 05/28/16 07:08 Labs: Abnormal Lab Results - Last 24 Hours (Table) 05/28/16 05/28/16 Range/Units 07:08 07:08 RBC 3.11 L (3.80-5.40) m/uL Hgb 9.9 L (11.4-16.0) gm/dL Hct 31.8 L (34.0-46.0) % MCV 102.4 H (80.0-100.0) fL RDW 21.7 H (11.5-15.5) % Sodium 136 L (137-145) mmol/L Chloride 111 H (98-107) mmol/L Creatinine 0.43 L (0.52-1.04) mg/dL Calcium 7.6 L (8.4-10.2) mg/dL Phosphorus 2.4 L (2.5-4.5) mg/dL Comments: Computed tomography scan of the lumbar spine= multilevel lumbar degenerative disc disease and multilevel lumbar spinal stenosis and multilevel lumbar spinal stenosis Assessment and Plan Plan: Assessment and plan= acute on Chronic Severe Low Back Pain ,with Radiation to the Lower Extremities, Secondary to Multifactorial Cause/Lumbar Spinal Stenosis Lumbar Degenerative Disc Disease/Lumbar Spondylosis she is not a surgical candidate, and the current pain medication is not helping enough,the patient could benefit from lumbar epidural steroid injections ,procedure risks and benefits and alternatives discussed with the patient and she agreed with the preceding Time with Patient: Less than 30
--- NOTE | 2016-05-28 16:31 | P.PCN ---
Date of Procedure: 05/28/16 Procedure(s) Performed: PREOPERATIVE DIAGNOSIS: 1- Lumbar Degenerative Disc Diseases 2-Lumbar spondylosis with Facet arthropathy without myelopathy 3-lumbar spinal stenosis POSTOPERATIVE DIAGNOSIS: 1-Lumber Degenerative Disc Diseases 2-Lumbar spondylosis with Facet arthropathy without myelopathy. 3-lumbar spinal stenosis PROCEDURE 1. Lumbar epidural steroid injection under fluoroscopic guidance at the L5-S1 level. 2. Lumbar epidurogram. ANESTHESIA: Local with 1% lidocaine 3 ml . EBL: Minimal PROCEDURE INDICATION: The patient with low back pain and radiculitis symptoms unresponsive to conservative treatment. Fluoroscopy was used to optimize visualization of the needle placement and to maximize safety. PROCEDURE DESCRIPTION / TECHNIQUE: The patient was seen and identified in the preoperative area. Risks, benefits , complications including but not limited to infections ,bleeding ,allergic reaction to the medications ,nerve damage and not complete pain releife , and alternatives were discussed with the patient. The patient agreed to proceed with the procedure and signed the consent. IV was started, and vital signs were stable. Patient was taken to the OR and time out was completed. The patient was placed in the prone position on procedure table and a pillow was placed under the abdomen to reduce lumbar lordosis. The lumbosacral area was prepped and draped in the usual sterile fashion.ere closely monitored during the procedure. Vital signs was monitered during the entire procedure. Using anterior-posterior fluoroscopy, the L5-S1 interlaminar space was identified and the skin over this site was marked and then infiltrated with 1% lidocaine subcutaneously. Subsequently, a 20-gauge Tuohy epidural needle was inserted and advanced toward the epidural space using the ``Loss of resistance technique and guided by AP and lateral fluoroscopy. The correct needle position in the epidural space was verified with the injection of 2 mL of the water soluble contrast dye Omnipaque 180 contrast and observing an excellent epidurogram with the epidural spread of the dye, after negative aspiration for blood and CSF and in the absence of paresthesias. Again after negative aspiration, a 3 ml mixture containing 40 mg of Kenalog and 2 ml of preservative free Normal Saline, was injected and a washout of epidurogram was seen. Needle was withdrawn intact, skin was cleansed, and bandages were applied. COMPLICATIONS: None DISPOSITION / PLANS: The patient was placed in a supine position and transferred to the recovery area in a stable condition for observation. There was no evidence of lower extremity motor or sensory deficit after the procedure. Patient was discharged from the recovery room after meeting discharge criteria. Home discharge instructions were given to the patient by the staff. The patient was reexamined prior to discharge. The patient will schedule a follow up in the clinic in 2-4 weeks.
[2016-05-29] MEDS: GABAPENTIN 300 MG CAP PO SCH ×2 (04:15→12:39)
[2016-05-29] MEDS: LEVOTHYROXINE 25 MCG TAB PO SCH (05:37)
--- NOTE | 2016-05-29 08:16 | FL ---
Fluoroscopy HISTORY: Pain 3 seconds fluoroscopy time supplied to the referring clinician. 1 intraoperative C-arm images docume nt the procedure. See dictated report from anesthesia.
[2016-05-29 08:17] LABS: Anion Gap 7 mmol/L; Blood Urea Nitrogen 11 mg/dL (7-17); Carbon Dioxide 19 mmol/L (22-30); Chloride 109 mmol/L (98-107); Glucose 169 mg/dL (74-99); Magnesium 1.9 mg/dL (1.6-2.3); Non-African American GFR(MDRD) >60 (>60 ml/min/1.73 sqM); Phosphorous 2.8 mg/dL (2.5-4.5); Potassium 4.5 mmol/L (3.5-5.1); Sodium 135 mmol/L (137-145)
[2016-05-29] MEDS: PANTOPRAZOLE 40 MG/10 ML VIAL IV SCH (10:04)
--- NOTE | 2016-05-29 10:12 | P.PN ---
Subjective Principal diagnosis: 89-year-old female who we saw in consultation in the ICU yesterday. The patient came in with complaints of coffee-ground emesis. Her hemoglobin in the emergency room was down to 4.3. She received 3 units of blood. She was transferred to the ICU. She was transferred out of the ICU late last night. I spoke to the nurse about her. Doing relatively well. Relatively stable. She is 89 years of age. No additional active bleeding. Hemodynamically stable. No respiratory issues. Progress note dated 05/28/2016 89-year-old female who was admitted with a diabetic diagnosis of GI bleed. Her hemoglobin was 4.3 on admission. EGD revealed 2 large nonbleeding gastric ulcers. The patient seemed be doing relatively well. Eating regular food. No particular complaints complaints. No nausea vomiting. No vomiting up any blood. No black tarry stools. No coffee-ground emesis. Patient is feeling better. No respiratory issues. Blood pressure has been stable. The patient is seen again today 05/29/2016 in follow-up. She is awake and alert in no acute distress. She is sitting up in a chair at the bedside. Niacin a shortness of breath, cough or congestion. She is maintaining good O2 saturations in the 90s on room air. Hemodynamically stable. Afebrile. No dizziness or lightheadedness. Her hemoglobin remains stable at 9.9. Objective - Vital Signs Vital signs: Vital Signs Temp 97.7 F 05/29/16 07:50 Pulse 78 05/29/16 07:50 Resp 16 05/29/16 07:50 BP 115/66 05/29/16 07:50 Pulse Ox 93 L 05/29/16 07:50 Intake & Output 05/28/16 05/29/16 05/29/16 18:59 06:59 18:59 Intake Total 718 100 200 Balance 718 100 200 Weight 50.9 kg Intake: Oral 718 100 200 Other: Voiding Method Bedside Commode Diaper Incontinent # Voids 3 2 - Exam GENERAL EXAM: Alert, active, comfortable in no apparent distress. HEAD: Normocephalic. EYES: Normal reaction of pupils, equal size. NOSE: Clear with pink turbinates. THROAT: No erythema or exudates. NECK: No masses, no JVD. CHEST: No chest wall deformity. LUNGS: Equal air entry with no crackles, wheeze, rhonchi or dullness. CVS: S1 and S2 normal with no audible mumurs, regular rhythm. ABDOMEN: No hepatosplenomegaly, normal bowel sounds, no guarding or rigidity. Extremities: There is no significant peripheral edema. No clubbing, no cyanosis. Peripheral pulses are intact. - Labs CBC & Chem 7: 05/28/16 07:08 05/29/16 06:53 Labs: Abnormal Lab Results - Last 24 Hours (Table) 05/29/16 Range/Units 06:53 Sodium 135 L (137-145) mmol/L Chloride 109 H (98-107) mmol/L Carbon Dioxide 19 L (22-30) mmol/L Creatinine 0.44 L (0.52-1.04) mg/dL Glucose 169 H (74-99) mg/dL Calcium 8.0 L (8.4-10.2) mg/dL Assessment and Plan Plan: Impression: #1 Anemia secondary to acute upper GI bleed status post EGD with findings of 2 cm antral ulcer and a 3 cm ulcer in the cardia of the stomach without active bleeding. Status post 3 units of packed red blood cells transfused. Most recent hemoglobin 9.9. #2 2 Hypertension #3 Chronic back pain. #4. Polyneuropathy. Plan: The patient was seen and evaluated by Dr. Cintron. She is stable from the pulmonary and critical care standpoint. She could be transferred back to [facility] for inpatient rehabilitation once cleared by medicine and GI services. We'll see the patient on an as-needed basis.
[2016-05-29] MEDS ORDERED: LACTULOSE 20 GM/30 ML CUP PO ONE (11:36)
[2016-05-29] MEDS ORDERED: DOCUSATE 100 MG CAP PO SCH (11:45)
[2016-05-29] MEDS: oxyCODONE-APAP 10-325MG 1 EACH TAB PO PRN ×2 (12:38→15:58)
--- NOTE | 2016-05-29 14:58 | P.DS ---
Providers Date of admission: 05/25/16 15:02 Attending physician: Kisha Burrell Consults: 05/25/16 16:12 Consult Physician Urgent Consulting Provider: Deepak Cintron Reason/Comments: critical care Do you want consulting provider notified?: Already Contacted Primary care physician: Kisha Burrell Hospital Course: Discharge diagnosis 1. Acute upper GI bleed status secondary to 2 gastric ulcers noted on EGD . Continue Protonix 2. Acute blood loss anemia secondary GI bleed. Patient required 3 units of PRBC transfusion 3. Hypothyroidism, maintained on Synthroid 4. 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 Lumbar degenerative disc disease, lumbar spondylosis with facet arthropathy without myelopathy, and lumbar spinal stenosis. Status post epidural injection by pain service 5. Leukocytosis most likely reactive. Now resolved Hospital course This is a 89-year-old female who presented to the hospital with upper GI bleed with coffee-ground emesis and was found to have a hemoglobin of 4.5. She remained hemodynamically stable. She received 3 units of blood transfusion since admission. She was seen and evaluated by GI and underwent an EGD showing 2 gastric ulcers with no ongoing bleed. Biopsy obtained and pending. She will remain on Protonix 40 mg daily. She tolerated advancement of diet. And will continue a low fiber diet. Hemoglobin at discharge is 9.9. She is to avoid aspirin or NSAIDs. These medications were discontinued. She will follow up with GI service outpatient in 1 week. Also recommend checking a CBC in 1 week. Patient was also evaluated by pain service in regards to her chronic pain and underwent an epidural injection. Back pain is better. And she will continue her Percocets for her pain control. Patient is stable for discharge. Please refer to chart for any further details. She'll be discharged back to [facility] for further rehabilitation. Patient Condition at Discharge: Stable Plan - Discharge Summary New Discharge Prescriptions: Pantoprazole Sodium [Protonix] 40 mg PO DAILY #30 tablet. oxyCODONMoreno-APAP 10-325MG [Percocet 10-325 mg] 1 each PO Q4H PRN #40 tab PRN Reason: Severe Pain Discharge Medication List Multivitamin/Iron/Folic Acid [Centrum Complete Multivit Tab] 1 tab PO DAILY [History] Alendronate Sodium [Fosamax] 70 mg PO SA 02/08/14 [History] Fluticasone Nasal [place] [Flonase Nasal [place]] 1 spray EA NOSTRIL DAILY 05/02/16 [History] Levothyroxine Sodium [Synthroid] 25 mcg PO DAILY 05/02/16 [History] Gabapentin [Neurontin] 600 mg PO Q8H 05/25/16 [History] Simethicone Chew [Mylicon Chew] 80 mg PO Q6H PRN 05/25/16 [History] methylPREDNISolone [Medrol] 4 mg PO DAILY 05/25/16 [History] Docusate [Colace] 100 mg PO BID cap 05/29/16 [Rx] Pantoprazole Sodium [Protonix] 40 mg PO DAILY #30 tablet. 05/29/16 [Rx] oxyCODONE-APAP 10-325MG [Percocet 10-325 mg] 1 each PO Q4H PRN #40 tab 05/29/16 [Rx] Follow up Appointment(s)/Referral(s): Gena Herrera MD [STAFF PHYSICIAN] - 1 Week Kisha Burrell MD [Primary Care Provider] - 1 Week Activity/Diet/Wound Care/Special Instructions: Diet: low fiber Activity: as tolerated [facility] Burrell to follow at [facility] Check CBC in 1 week Discharge Disposition: TRANSFER TO SNF/ECF
[2016-05-29 15:58] VITALS: BP 118/73; PULSE 77; TEMP 97.8
[2016-05-30] MEDS ORDERED: PANTOPRAZOLE 40 MG TABLET PO SCH (09:00)
== END 2016-05-29 16:14 | DRG 378 ==
LOC: EC 12:48 → 6ICU 15:02 → 6SEL 05-26 20:59 → 3SUR 05-27 22:06
PROVIDERS: ADMIT Internal Medicine; ATTEND Internal Medicine
PROC: 30233N1 Transfusion of Nonautologous Red Blood Cells into Peripheral Vein, Percutaneous Approach (ICD-10-PCS; 2016-05-25)
PROC: 03HY32Z Insertion of Monitoring Device into Upper Artery, Percutaneous Approach (ICD-10-PCS; 2016-05-26)
PROC: 0DB68ZX Excision of Stomach, Via Natural or Artificial Opening Endoscopic, Diagnostic (ICD-10-PCS; principal; 2016-05-26 08:00)
PROC: 3E0R33Z Introduction of Anti-inflammatory into Spinal Canal, Percutaneous Approach (ICD-10-PCS; 2016-05-28)
DX: K25.4 Chronic or unspecified gastric ulcer with hemorrhage (principal); D62 Acute posthemorrhagic anemia; G62.9 Polyneuropathy, unspecified; E03.9 Hypothyroidism, unspecified; D72.829 Elevated white blood cell count, unspecified; F41.9 Anxiety disorder, unspecified; G89.29 Other chronic pain; I10 Essential (primary) hypertension; K44.9 Diaphragmatic hernia without obstruction or gangrene; M19.90 Unspecified osteoarthritis, unspecified site; M81.0 Age-related osteoporosis without current pathological fracture; M51.36 Other intervertebral disc degeneration, lumbar region; M48.06 Spinal stenosis, lumbar region; M47.26 Other spondylosis with radiculopathy, lumbar region; Z79.82 Long term (current) use of aspirin; Z79.899 Other long term (current) drug therapy; Z79.52 Long term (current) use of systemic steroids; Z87.891 Personal history of nicotine dependence; Z88.0 Allergy status to penicillin; Z82.49 Family history of ischemic heart disease and other diseases of the circulatory system
CPT/HCPCS: 36415; 36430; 43239; 80048; 80053; 83735; 84100; 85025; 85027; 85610; 85730; 86850; 86900; 86901; 86920; 88305; 88342; 96374; 99285

== ENCOUNTER 2016-06-29 09:31 | Day surgery (SDC) | payer MEDICARE ==
[2016-06-25 13:36] VITALS: BMI 20.4
[~2016-06-29 09:31] MED LIST: LACTATED RINGERS 1,000 ML IV SCH
[2016-06-29 09:51] VITALS: TEMP 98.6
[2016-06-29] MEDS ORDERED: BUPIVACAINE (PF) 0.25% 30 ML VIAL ONE (10:04)
[2016-06-29] MEDS ORDERED: TRIAMCINOLONE ACETONIDE 40 MG/ML 1 ML VIAL ONE (10:04)
[2016-06-29] MEDS ORDERED: IOHEXOL 180 MG/ML 1 ML ML ONE (10:04)
[2016-06-29 10:06] LABS: Glucose,Whole Blood 85 mg/dL (75-99)
--- NOTE | 2016-06-29 10:34 | P.PCN ---
Date of Procedure: 06/29/16 Preoperative Diagnosis: Severe lumbar stenosis Postoperative Diagnosis: Same as above Procedure(s) Performed: Lumbar epidural steroid injection under fluoroscopic guidance Implants: Anesthesia: local Surgeon: Zoie Angela Pathology: none sent Condition: stable Disposition: PACU Indications for Procedure: Operative Findings: Description of Procedure: The patient was seen in the preop holding area consent was obtained then she was brought into the procedure and placed in prone position. Skin was prepped with Betadine 3 and draped in a sterile manner. Lidocaine 1% was used to numb the skin over the target points. First I tried to go through the L3-L4 level but I had difficulty due to too much bone spurs and calcifications. I then chose the level to L5-S1 in the right paramedian approach. I used 20-gauge 3-1/ 2 inch Touhy epidural needle with [id number] to air to identify the epidural space. Was positive [id number] to air negative aspiration for any CSF or blood negative paresthesia. I then injected 1 mL of Omnipaque which showed typical epidurogram on the AP and lateral views of fluoroscopy and after that I injected 40 mg of Kenalog +2 MLS of Marcaine 0.25% +4 MLS of preservative free normal saline to a total volume of 7 MLS of the epidural space. Patient tolerated procedure well.
--- NOTE | 2016-06-29 10:39 | FL ---
EXAMINATION TYPE: FL guided pain mgmt statistic DATE OF EXAM: 06/29/2016 10:36 AM HISTORY: Flouroscopy time 21 seconds of fluoroscopy provided. IMPRESSION: 1. Fluoroscopy time.
[2016-06-29 10:40] VITALS: RESP 18
[2016-06-29 10:56] VITALS: BP 135/84; PULSE 75
== END 2016-06-29 11:07 | disposition home or self-care (01) ==
LOC: ORPAIN 09:31
PROVIDERS: ATTEND Anesthesiology
DX: M48.06 Spinal stenosis, lumbar region (principal); Z88.0 Allergy status to penicillin
CPT/HCPCS: 62323; J3301; Q9965